=== PATIENT | male | born 1945 | race Caucasian/White ===

== ENCOUNTER 2017-01-27 19:20 | Inpatient (IN) | payer MEDICARE, BC ==
[2017-01-27 19:34] LABS: Glucose,Whole Blood 123 mg/dL (75-99)
[2017-01-27] MEDS ORDERED: SODIUM CHLORIDE 0.9% 1,000 ML IV SCH (19:45)
[2017-01-27 20:15] LABS: Basophils % (A) 0 %; CH 32.8; CHCM 37.6; Eosinophils # (A) 0.1 k/uL (0-0.7); Eosinophils % (A) 1 %; HCT 38.2 % (39.0-53.0); HDW 2.43; HGB 13.5 gm/dL (13.0-17.5); Luc # (Auto) 0.11; Luc % (Auto) 1; Lymphocytes # (A) 0.6 k/uL (1.0-4.8); Lymphocytes % (A) 7 %; MCH 30.9 pg (25.0-35.0); MCHC 35.3 g/dL (31.0-37.0); MCV 87.5 fL (80.0-100.0); Mean Platelet Volume 7.1; Monocytes # (A) 0.8 k/uL (0-1.0); Monocytes % (A) 9 %; Neutrophils % (A) 81 %; RBC 4.37 m/uL (4.30-5.90); RDW 12.5 % (11.5-15.5); WBC 8.6 k/uL (3.8-10.6); WBC (Perox) 8.64
[2017-01-27 20:25] LABS: ALT 175 U/L (21-72); AST 134 U/L (17-59); Acetaminophen <10.0 ug/mL; Alcohol <10 mg/dL; Alkaline Phosphatase 137 U/L (38-126); Anion Gap 13 mmol/L; Blood Urea Nitrogen 18 mg/dL (9-20); Calcium 8.9 mg/dL (8.4-10.2); Carbon Dioxide 29 mmol/L (22-30); Glucose 118 mg/dL (74-99); Magnesium 1.5 mg/dL (1.6-2.3); Non-African American GFR(MDRD) >60 (>60 ml/min/1.73 sqM); Total Bilirubin 1.5 mg/dL (0.2-1.3); Total Protein 6.5 g/dL (6.3-8.2)
[2017-01-27 20:26] LABS: INR 1.1 (<1.2); Partial Thromboplastin Time 22.5 sec (22.0-30.0); Prothrombin Time 11.3 sec (9.0-12.0)
--- NOTE | 2017-01-27 20:29 | CT ---
EXAMINATION TYPE: CT brain wo con DATE OF EXAM: 01/27/2017 COMPARISON: NONE HISTORY: Patient poor historian. Mental status changes. CT DLP: 788.8 mGycm Automated exposure control for dose reduction was used. FINDINGS: Ventricles have fairly normal size. There is no mass effect nor midline shift. There is no sign of in tracranial hemorrhage. The calvarium is intact. IMPRESSION: NEGATIVE CT SCAN OF THE BRAIN.
[2017-01-27 20:34] LABS: Chloride 69 mmol/L (98-107); Potassium 2.9 mmol/L (3.5-5.1); Sodium 111 mmol/L (137-145)
[2017-01-27] MEDS ORDERED: SODIUM CHLORIDE 0.9% 1,000 ML IV ONE (20:41)
--- NOTE | 2017-01-27 20:44 | XR ---
EXAMINATION TYPE: XR chest 1V DATE OF EXAM: 01/27/2017 COMPARISON: NONE HISTORY: Weakness TECHNIQUE: Single frontal view of the chest is obtained. FINDINGS: There is pulmonary hyperinflation. There is some bullous emphysema in the upper lobes and more on the right side. Trachea is midline. Heart size is normal. There is no heart failure. There is no pleural effusion. There are chest leads. IMPRESSION: Emphysema. No acute lung disease.
[2017-01-27 20:51] LABS: Creatine Kinase MB 2.1 ng/mL (0.0-2.4); Troponin I <0.012 ng/mL (0.000-0.034)
[2017-01-27] MEDS ORDERED: POTASSIUM CHLORIDE 20 MEQ in WATER FOR INJECTION 1 100ML.BAG IVPB STA (20:58)
[2017-01-27] MEDS ORDERED: POTASSIUM CHLORIDE ER 20 MEQ TAB.ER PO STA (20:58)
[2017-01-27] MEDS ORDERED: LIDOCAINE URO-JET JELLY 2% 5 ML KIT URETHRAL ONE (21:06)
--- NOTE | 2017-01-27 21:23 | ED ---
Weakness HPI - General Chief complaint: Weakness Stated complaint: Confusion/Weakness Time Seen by Provider: 01/27/17 19:33 Source: patient, family Mode of arrival: ambulatory Limitations: no limitations - History of Present Illness Initial comments: This is a 71-year-old male with a history of hypertension who presents emergency department for generalized weakness worsening over the last couple of days. The family states that he is never been like this. He is very somnolent and very out of it. They state that today he seemed to get acutely worse and decided to bring him in. No fevers or chills. The patient does not complain of any pain anywhere. He does state he has had decreased urine output. He was placed on a diuretic last week however has still not been urinating much. He does have a history of some type of prostate issue and states that he's been having difficulty with urination. He denies any chest pain or palpitations. No shortness of breath. No vomiting. No diarrhea. No other - Related Data Home Medications Medication Instructions Recorded Confirmed ALPRAZolam [Xanax] 0.25 mg PO DAILY 01/27/17 01/27/17 ALPRAZolam [Xanax] 0.25 mg PO HS PRN 01/27/17 01/27/17 Aspirin EC [Ecotrin Low Dose] 162 mg PO HS 01/27/17 01/27/17 Atenolol [Tenormin] 50 mg PO DAILY 01/27/17 01/27/17 Atorvastatin [Lipitor] 20 mg PO HS 01/27/17 01/27/17 Cholecalciferol [Vitamin D3] 1,000 unit PO DAILY 01/27/17 01/27/17 FLUoxetine HCL [PROzac] 20 mg PO BID 01/27/17 01/27/17 Lisinopril-Hctz 10-12.5 mg 1 tab PO DAILY 01/27/17 01/27/17 [Zestoretic 10-12.5] Zolpidem [Ambien] 10 mg PO HS PRN 01/27/17 01/27/17 Allergies Allergy/AdvReac Type Severity Reaction Status Date / Time Sulfa (Sulfonamide Allergy Rash/Hives Verified 01/27/17 19:53 Antibiotics) Review of Systems ROS Statement: Those systems with pertinent positive or pertinent negative responses have been documented in the HPI. ROS Other: All systems not noted in ROS Statement are negative. Past Medical History Past Medical History: Diabetes Mellitus, Hypertension, Myocardial Infarction ([place] ) History of Any Multi-Drug Resistant Organisms: None Reported Past Surgical History: Heart Catheterization With Stent, Orthopedic Surgery Past Psychological History: No Psychological Hx Reported Smoking Status: Former smoker Past Alcohol Use History: None Reported Past Drug Use History: None Reported General Exam - General Exam Comments Initial Comments: Constitutional: The patient is awake but very somnolent and slow to answer questions Appears comfortable Head: Normocephalic atraumatic Eyes: no conjunctival injection No scleral icterus EOMI, pupils are 4 mm and reactive bilaterally Neck: No JVD Supple, no meningismus Heart: Regular rate rhythm normal S1-S2 no murmurs Lungs: Clear to auscultation bilaterally No wheezing No rales Abdomen: Soft nondistended nontender Extremities: Non edematous DP pulses intact Radial pulses intact Neuro: He is awake however somnolent. He is oriented 3. No focal neurologic deficits. 5 out of 5 strength in upper and lower extremities bilaterally. Cranial nerves II through XII are grossly intact. No focal neurologic deficits Psych: Appropriate mood and affect Limitations: no limitations Course Vital Signs 01/27/17 01/27/17 01/27/17 19:24 21:09 21:42 Temperature 97 F L Pulse Rate 65 70 67 Respiratory 18 16 18 Rate Blood Pressure 198/84 180/84 173/81 O2 Sat by Pulse 99 100 100 Oximetry 01/27/17 22:07 Temperature Pulse Rate 68 Respiratory 18 Rate Blood Pressure 182/85 O2 Sat by Pulse 100 Oximetry EKG Findings - EKG Comments: EKG Findings:: EKG showing normal sinus rhythm with a rate of 60. No abnormal ST segment changes or T-wave inversions. QTC is 620 and prolonged. Other intervals appear normal. There is no ectopy. Medical Decision Making - Medical Decision Making This is a 71-year-old male presents emergency department for weakness. He is found to be hyponatremic with a sodium of 111. Likely related to his head or thiazide use area and urine studies were sent. I spoke with Dr. Gusman with nephrology who recommended 3% saline and admission to ICU. Dr. Huitron and Dr. López were updated. - Lab Data Result diagrams: 01/27/17 20:00 01/27/17 20:00 Lab Results 01/27/17 01/27/17 01/27/17 Range/Units 19:31 20:00 20:00 WBC (3.8-10.6) k/uL RBC (4.30-5.90) m/uL Hgb (13.0-17.5) gm/dL Hct (39.0-53.0) % MCV (80.0-100.0) fL MCH (25.0-35.0) pg MCHC (31.0-37.0) g/dL RDW (11.5-15.5) % Plt Count (150-450) k/uL Neutrophils % % Lymphocytes % % Monocytes % % Eosinophils % % Basophils % % Neutrophils # (1.3-7.7) k/uL Lymphocytes # (1.0-4.8) k/uL Monocytes # (0-1.0) k/uL Eosinophils # (0-0.7) k/uL Basophils # (0-0.2) k/uL PT 11.3 (9.0-12.0) sec INR 1.1 (<1.2) APTT 22.5 (22.0-30.0) sec Sodium (137-145) mmol/L Potassium (3.5-5.1) mmol/L Chloride (98-107) mmol/L Carbon Dioxide (22-30) mmol/L Anion Gap mmol/L BUN (9-20) mg/dL Creatinine (0.66-1.25) mg/dL Est GFR (MDRD) Af Amer (>60 ml/min/1.73 sqM) Est GFR (MDRD) Non-Af (>60 ml/min/1.73 sqM) Glucose (74-99) mg/dL POC Glucose (mg/dL) 123 H (75-99) mg/dL POC Glu [employer] ID Vasyl Hartley Plasma Lactic Acid Gennaro (0.7-2.0) mmol/L Calcium (8.4-10.2) mg/dL Magnesium (1.6-2.3) mg/dL Total Bilirubin (0.2-1.3) mg/dL AST (17-59) U/L ALT (21-72) U/L Alkaline Phosphatase (38-126) U/L CK-MB (CK-2) 2.1 (0.0-2.4) ng/mL Troponin I <0.012 (0.000-0.034) ng/mL Total Protein (6.3-8.2) g/dL Albumin (3.5-5.0) g/dL Urine Color Urine Appearance (Clear) Urine pH (5.0-8.0) Ur Specific [place] (1.001-1.035) Urine Protein (Negative) Urine Glucose (UA) (Negative) Urine Ketones (Negative) Urine Blood (Negative) Urine Nitrite (Negative) Urine Bilirubin (Negative) Urine Urobilinogen (<2.0) mg/dL Ur Leukocyte Esterase (Negative) Urine RBC (0-5) /hpf Urine WBC (0-5) /hpf Urine Opiates Screen (NotDetected) Ur Oxycodone Screen (NotDetected) Urine Methadone Screen (NotDetected) Ur Propoxyphene Screen (NotDetected) Acetaminophen ug/mL Ur Barbiturates Screen (NotDetected) U Tricyclic Antidepress (NotDetected) Ur Phencyclidine Scrn (NotDetected) Ur Amphetamines Screen (NotDetected) U Methamphetamines Scrn (NotDetected) U Benzodiazepines Scrn (NotDetected) Urine Cocaine Screen (NotDetected) U Marijuana (THC) Screen (NotDetected) Serum Alcohol mg/dL 01/27/17 01/27/17 01/27/17 Range/Units 20:00 20:00 20:00 WBC 8.6 (3.8-10.6) k/uL RBC 4.37 (4.30-5.90) m/uL Hgb 13.5 (13.0-17.5) gm/dL Hct 38.2 L (39.0-53.0) % MCV 87.5 (80.0-100.0) fL MCH 30.9 (25.0-35.0) pg MCHC 35.3 (31.0-37.0) g/dL RDW 12.5 (11.5-15.5) % Plt Count 205 (150-450) k/uL Neutrophils % 81 % Lymphocytes % 7 % Monocytes % 9 % Eosinophils % 1 % Basophils % 0 % Neutrophils # 7.0 (1.3-7.7) k/uL Lymphocytes # 0.6 L (1.0-4.8) k/uL Monocytes # 0.8 (0-1.0) k/uL Eosinophils # 0.1 (0-0.7) k/uL Basophils # 0.0 (0-0.2) k/uL PT (9.0-12.0) sec INR (<1.2) APTT (22.0-30.0) sec Sodium 111 L* (137-145) mmol/L Potassium 2.9 L* (3.5-5.1) mmol/L Chloride 69 L* (98-107) mmol/L Carbon Dioxide 29 (22-30) mmol/L Anion Gap 13 mmol/L BUN 18 (9-20) mg/dL Creatinine 0.70 (0.66-1.25) mg/dL Est GFR (MDRD) Af Amer >60 (>60 ml/min/1.73 sqM) Est GFR (MDRD) Non-Af >60 (>60 ml/min/1.73 sqM) Glucose 118 H (74-99) mg/dL POC Glucose (mg/dL) (75-99) mg/dL POC Glu [employer] ID Plasma Lactic Acid Gennaro 2.5 H* (0.7-2.0) mmol/L Calcium 8.9 (8.4-10.2) mg/dL Magnesium 1.5 L (1.6-2.3) mg/dL Total Bilirubin 1.5 H (0.2-1.3) mg/dL AST 134 H (17-59) U/L ALT 175 H (21-72) U/L Alkaline Phosphatase 137 H (38-126) U/L CK-MB (CK-2) (0.0-2.4) ng/mL Troponin I (0.000-0.034) ng/mL Total Protein 6.5 (6.3-8.2) g/dL Albumin 3.9 (3.5-5.0) g/dL Urine Color Urine Appearance (Clear) Urine pH (5.0-8.0) Ur Specific [place] (1.001-1.035) Urine Protein (Negative) Urine Glucose (UA) (Negative) Urine Ketones (Negative) Urine Blood (Negative) Urine Nitrite (Negative) Urine Bilirubin (Negative) Urine Urobilinogen (<2.0) mg/dL Ur Leukocyte Esterase (Negative) Urine RBC (0-5) /hpf Urine WBC (0-5) /hpf Urine Opiates Screen (NotDetected) Ur Oxycodone Screen (NotDetected) Urine Methadone Screen (NotDetected) Ur Propoxyphene Screen (NotDetected) Acetaminophen <10.0 ug/mL Ur Barbiturates Screen (NotDetected) U Tricyclic Antidepress (NotDetected) Ur Phencyclidine Scrn (NotDetected) Ur Amphetamines Screen (NotDetected) U Methamphetamines Scrn (NotDetected) U Benzodiazepines Scrn (NotDetected) Urine Cocaine Screen (NotDetected) U Marijuana (THC) Screen (NotDetected) Serum Alcohol <10 mg/dL 01/27/17 01/27/17 Range/Units 21:15 21:15 WBC (3.8-10.6) k/uL RBC (4.30-5.90) m/uL Hgb (13.0-17.5) gm/dL Hct (39.0-53.0) % MCV (80.0-100.0) fL MCH (25.0-35.0) pg MCHC (31.0-37.0) g/dL RDW (11.5-15.5) % Plt Count (150-450) k/uL Neutrophils % % Lymphocytes % % Monocytes % % Eosinophils % % Basophils % % Neutrophils # (1.3-7.7) k/uL Lymphocytes # (1.0-4.8) k/uL Monocytes # (0-1.0) k/uL Eosinophils # (0-0.7) k/uL Basophils # (0-0.2) k/uL PT (9.0-12.0) sec INR (<1.2) APTT (22.0-30.0) sec Sodium (137-145) mmol/L Potassium (3.5-5.1) mmol/L Chloride (98-107) mmol/L Carbon Dioxide (22-30) mmol/L Anion Gap mmol/L BUN (9-20) mg/dL Creatinine (0.66-1.25) mg/dL Est GFR (MDRD) Af Amer (>60 ml/min/1.73 sqM) Est GFR (MDRD) Non-Af (>60 ml/min/1.73 sqM) Glucose (74-99) mg/dL POC Glucose (mg/dL) (75-99) mg/dL POC Glu [employer] ID Plasma Lactic Acid Gennaro (0.7-2.0) mmol/L Calcium (8.4-10.2) mg/dL Magnesium (1.6-2.3) mg/dL Total Bilirubin (0.2-1.3) mg/dL AST (17-59) U/L ALT (21-72) U/L Alkaline Phosphatase (38-126) U/L CK-MB (CK-2) (0.0-2.4) ng/mL Troponin I (0.000-0.034) ng/mL Total Protein (6.3-8.2) g/dL Albumin (3.5-5.0) g/dL Urine Color Yellow Urine Appearance Clear (Clear) Urine pH 7.0 (5.0-8.0) Ur Specific [place] 1.010 (1.001-1.035) Urine Protein Negative (Negative) Urine Glucose (UA) Negative (Negative) Urine Ketones 1+ H (Negative) Urine Blood Moderate H (Negative) Urine Nitrite Negative (Negative) Urine Bilirubin Negative (Negative) Urine Urobilinogen 4.0 (<2.0) mg/dL Ur Leukocyte Esterase Negative (Negative) Urine RBC 17 H (0-5) /hpf Urine WBC <1 (0-5) /hpf Urine Opiates Screen Not Detected (NotDetected) Ur Oxycodone Screen Not Detected (NotDetected) Urine Methadone Screen Not Detected (NotDetected) Ur Propoxyphene Screen Not Detected (NotDetected) Acetaminophen ug/mL Ur Barbiturates Screen Not Detected (NotDetected) U Tricyclic Antidepress Not Detected (NotDetected) Ur Phencyclidine Scrn Not Detected (NotDetected) Ur Amphetamines Screen Not Detected (NotDetected) U Methamphetamines Scrn Not Detected (NotDetected) U Benzodiazepines Scrn Detected H (NotDetected) Urine Cocaine Screen Not Detected (NotDetected) U Marijuana (THC) Screen Not Detected (NotDetected) Serum Alcohol mg/dL Disposition Clinical Impression: Hyponatremia Disposition: ADMITTED IP TO THIS HOSP Condition: Critical
[2017-01-27 21:49] LABS: Appearance,Urine Clear (Clear); Bilirubin,Urine Negative (Negative); Glucose,Urine (UA) Negative (Negative); Ketones,Urine 1+ (Negative); Leukocyte Esterase,Urine Negative (Negative); Nitrite,Urine Negative (Negative); Particle Count 710; Protein,Urine Negative (Negative); RBC,Urine 17 /hpf (0-5); UA Billing (MACRO vs. MICRO) MICRO; WBC,Urine <1 /hpf (0-5)
[2017-01-27] MEDS ORDERED: NALOXONE 0.4 MG/ML 1 ML VIAL IV PRN (22:22)
[2017-01-27] MEDS: MAGNESIUM SULFATE-D5W PMX 1 GM in DEXTROSE/WATER 1 100ML.BAG IVPB SCH (22:36)
[2017-01-28] LABS: Glucose,Whole Blood 121 mg/dL (75-99)
[2017-01-28] MEDS: SODIUM CHLORIDE 3%(HYPERTONIC) 500 ML IV SCH (00:04)
[2017-01-28] MEDS: ALPRAZolam 0.25 MG TAB PO PRN (01:26)
[2017-01-28] MEDS: MAGNESIUM SULFATE-D5W PMX 1 GM in DEXTROSE/WATER 1 100ML.BAG IVPB SCH (02:32)
[2017-01-28 03:00] LABS: Anion Gap 11 mmol/L; Blood Urea Nitrogen 13 mg/dL (9-20); Carbon Dioxide 24 mmol/L (22-30); Glucose 104 mg/dL (74-99); Non-African American GFR(MDRD) >60 (>60 ml/min/1.73 sqM)
[2017-01-28 03:03] LABS: Chloride 78 mmol/L (98-107); Sodium 113 mmol/L (137-145)
[2017-01-28] MEDS: POTASSIUM CHLORIDE 10 MEQ, LIDOCAINE 2% INJ 10 MG in SODIUM CHLORIDE 0.9% 100 ML IVPB SCH ×3 (03:59→06:12)
[2017-01-28 05:35] LABS: Basophils % (A) 0 %; CH 31.2; CHCM 35.2; Eosinophils % (A) 0 %; HCT 38.1 % (39.0-53.0); HDW 2.42; HGB 13.2 gm/dL (13.0-17.5); Luc # (Auto) 0.27; Luc % (Auto) 2; Lymphocytes # (A) 0.6 k/uL (1.0-4.8); Lymphocytes % (A) 4 %; MCH 30.8 pg (25.0-35.0); MCHC 34.7 g/dL (31.0-37.0); MCV 88.8 fL (80.0-100.0); Monocytes # (A) 0.9 k/uL (0-1.0); Monocytes % (A) 7 %; Neutrophils # (A) 10.9 k/uL (1.3-7.7); Neutrophils % (A) 86 %; RBC 4.29 m/uL (4.30-5.90); WBC 12.7 k/uL (3.8-10.6)
[2017-01-28 05:54] LABS: Anion Gap 11 mmol/L; Calcium 7.9 mg/dL (8.4-10.2); Carbon Dioxide 23 mmol/L (22-30); Chloride 81 mmol/L (98-107); Glucose 109 mg/dL (74-99); Non-African American GFR(MDRD) >60 (>60 ml/min/1.73 sqM); Total Bilirubin 1.2 mg/dL (0.2-1.3); Total Protein 5.9 g/dL (6.3-8.2)
[2017-01-28 06:00] LABS: Blood Urea Nitrogen 11 mg/dL (9-20); Magnesium 2.1 mg/dL (1.6-2.3); Potassium 3.4 mmol/L (3.5-5.1); Sodium 115 mmol/L (137-145)
[2017-01-28 06:01] LABS: ALT 159 U/L (21-72); AST 120 U/L (17-59); Alkaline Phosphatase 113 U/L (38-126)
--- NOTE | 2017-01-28 08:32 | P.CNPUL ---
History of Present Illness Consult date: 01/28/17 Chief complaint: Generalized weakness and hyponatremia History of present illness: This is a 71-year-old male patient came into the emergency department yesterday because of generalized weakness over the past couple of days. The patient was also somnolent and he was unable to stand up due to his extensive weakness. His condition was progressively getting worse and yesterday felt really bad. No fever. No chills. In the burst department the patient was found to have severe hypochloremic hyponatremia with a sodium level of 111. His chloride level was at 78. His BUN was 13 with a creatinine of 0.6. Glucose was 104. His lactic acid level was at 1.1. His urine osmolality was 407. The serum osmolality was at 407 and a urine sodium was at 45. Patient's urine toxin was positive for benzodiazepines. The patient was recently switched to a antihypertensive medication that includes hydrochlorothiazide. He is not a beer drinker. No history of of malignancy. No history of any other medication change recently. He is on Prozac 20 mg by mouth daily. Chest x-ray showed COPD otherwise clear. CAT scan of the brain was also negative. No history of any hypothyroidism. No diarrhea. No nausea. No vomiting. No hematemesis. Based on this and based on his symptomatically hyponatremia the patient was started on hypertonic 3% saline at the rate of 20 mL an hour and his current sodium level is up 115. He is still very tired. He is requesting to sleep at all times. The patient is known to have multiple other medical problems including coronary artery disease with a previous coronary stent insertion, hypertension, previous myocardial infarction, and COPD. Review of Systems Constitutional: Reports daytime sleepiness, Reports fatigue, Reports poor appetite, Reports weakness Eyes: denies blurred vision, denies bulging eye, denies decreased vision Ears: deny: decreased hearing, ear discharge, earache Ears, nose, mouth and throat: Denies headache, Denies sore throat Cardiovascular: Denies chest pain, Denies shortness of breath Respiratory: Denies cough Gastrointestinal: Denies abdominal pain, Denies diarrhea, Denies nausea, Denies vomiting Musculoskeletal: Denies myalgias Musculoskeletal: absent: ankle pain, ankle stiffness, ankle swelling Integumentary: Denies pruritus, Denies rash Neurological: Reports gait dysfunction, Reports weakness Psychiatric: Reports anxiety, Reports depression Endocrine: Denies fatigue, Denies weight change Past Medical History Past Medical History: Diabetes Mellitus, Hypertension, Myocardial Infarction ([place] ) Additional Past Medical History / Comment(s): Coronary artery disease, previous myocardial infarction, previous coronary stent, osteoarthritis, chronic back pain, hypertension, anxiety/depression. Last Myocardial Infarction Date:: 2003 History of Any Multi-Drug Resistant Organisms: None Reported Past Surgical History: Heart Catheterization With Stent, Orthopedic Surgery Date of Last Stent Placement:: 2003 Past Psychological History: No Psychological Hx Reported Smoking Status: Former smoker Past Alcohol Use History: None Reported Past Drug Use History: None Reported Medications and Allergies Home Medications Medication Instructions Recorded Confirmed Type ALPRAZolam [Xanax] 0.25 mg PO DAILY 01/27/17 01/27/17 History ALPRAZolam [Xanax] 0.25 mg PO HS PRN 01/27/17 01/27/17 History Aspirin EC [Ecotrin Low Dose] 162 mg PO HS 01/27/17 01/27/17 History Atenolol [Tenormin] 50 mg PO DAILY 01/27/17 01/27/17 History Atorvastatin [Lipitor] 20 mg PO HS 01/27/17 01/27/17 History Cholecalciferol [Vitamin D3] 1,000 unit PO DAILY 01/27/17 01/27/17 History FLUoxetine HCL [PROzac] 20 mg PO BID 01/27/17 01/27/17 History Lisinopril-Hctz 10-12.5 mg 1 tab PO DAILY 01/27/17 01/27/17 History [Zestoretic 10-12.5] Zolpidem [Ambien] 10 mg PO HS PRN 01/27/17 01/27/17 History Allergies Allergy/AdvReac Type Severity Reaction Status Date / Time Sulfa (Sulfonamide Allergy Rash/Hives Verified 01/27/17 19:53 Antibiotics) Physical Exam Vitals: Vital Signs Temp Pulse Pulse Resp BP BP Pulse Ox 01/28/17 06:00 69 17 149/73 98 01/28/17 05:30 73 18 120/70 95 01/28/17 05:00 69 17 161/72 95 01/28/17 04:30 70 17 165/75 97 01/28/17 04:00 98 F 69 15 170/86 96 01/28/17 03:36 71 15 01/28/17 03:30 98.8 F 71 16 160/72 95 01/28/17 03:00 72 15 152/73 95 01/28/17 02:30 70 16 159/78 96 01/28/17 02:00 69 15 162/81 96 01/28/17 01:30 69 17 157/79 96 01/28/17 01:00 67 18 147/78 98 01/28/17 00:30 98.5 F 68 18 159/75 98 01/28/17 00:00 72 19 178/83 100 01/27/17 23:58 73 24 98 01/27/17 23:19 96.5 F L 69 17 157/79 99 01/27/17 22:45 98.1 F 68 12 147/78 98 01/27/17 22:07 68 18 182/85 100 01/27/17 21:42 67 18 173/81 100 01/27/17 21:09 70 16 180/84 100 01/27/17 19:24 97 F L 65 18 198/84 99 Intake and Output 01/27/17 01/28/17 01/28/17 22:59 06:59 14:59 Intake Total 1120 Output Total 800 950 Balance -800 170 Intake: IV 120 Sodium Chloride 3%( 120 Hypertonic) 500 ml @ 20 mls/hr IV .Q24H [facility] Rx#: [id number] Amount of Fluid Infused ( 1000 ml) Output: Urine 800 950 Other: Voiding Method Toilet Indwelling Catheter # Voids 1 1 Weight 60.1 kg The patient appeared well nourished and normally developed. Vital signs as documented. Head exam is unremarkable. No scleral icterus or corneal arcus noted. Neck is without jugular venous distension, thyromegaly, or carotid bruits. Carotid upstrokes are brisk bilaterally. Lungs are clear to auscultation and percussion. Cardiac exam reveals the PMI to be normally sized and situated. Rhythm is regular. First and second heart sounds normal. No murmurs, rubs or gallops. Abdominal exam reveals normal bowel sounds, no masses , no organomegaly and no aortic enlargement. Extremities are nonedematous and both femoral and pedal pulses are normal. Neurologically the patient's exam is nonfocal however he is weak and he is unable to ambulate yet. Motor function is diminished in all 4 extremities symmetrically. No cranial nerve deficits. Skin is negative for any open wounds or sores or ulceration or cellulitis. Results - Laboratory Findings CBC and BMP: 01/28/17 05:19 01/28/17 05:19 PT/INR, D-dimer PT 11.3 sec (9.0-12.0) 01/27/17 20:00 INR 1.1 (<1.2) 01/27/17 20:00 Abnormal lab findings: Abnormal Labs 01/27/17 01/27/17 01/27/17 19:31 20:00 20:00 WBC RBC Hct 38.2 L Neutrophils # Lymphocytes # 0.6 L Sodium 111 L* Potassium 2.9 L* Chloride 69 L* Creatinine Glucose 118 H POC Glucose (mg/dL) 123 H Osmolality Plasma Lactic Acid Gennaro Calcium Magnesium 1.5 L Total Bilirubin 1.5 H AST 134 H ALT 175 H Alkaline Phosphatase 137 H Total Protein Albumin Urine Ketones Urine Blood Urine RBC U Benzodiazepines Scrn 01/27/17 01/27/17 01/27/17 20:00 20:00 21:15 WBC RBC Hct Neutrophils # Lymphocytes # Sodium Potassium Chloride Creatinine Glucose POC Glucose (mg/dL) Osmolality 239 L* Plasma Lactic Acid Gennaro 2.5 H* Calcium Magnesium Total Bilirubin AST ALT Alkaline Phosphatase Total Protein Albumin Urine Ketones Urine Blood Urine RBC U Benzodiazepines Scrn Detected H 01/27/17 01/27/17 01/28/17 21:15 23:57 02:06 WBC RBC Hct Neutrophils # Lymphocytes # Sodium 112 L* Potassium Chloride Creatinine Glucose POC Glucose (mg/dL) 121 H Osmolality Plasma Lactic Acid Gennaro Calcium Magnesium Total Bilirubin AST ALT Alkaline Phosphatase Total Protein Albumin Urine Ketones 1+ H Urine Blood Moderate H Urine RBC 17 H U Benzodiazepines Scrn 01/28/17 01/28/17 01/28/17 02:06 05:19 05:19 WBC 12.7 H RBC 4.29 L Hct 38.1 L Neutrophils # 10.9 H Lymphocytes # 0.6 L Sodium 113 L* 115 L* Potassium 3.0 L* 3.4 L Chloride 78 L* 81 L Creatinine 0.60 L 0.50 L Glucose 104 H 109 H POC Glucose (mg/dL) Osmolality Plasma Lactic Acid Gennaro Calcium 8.0 L 7.9 L Magnesium Total Bilirubin AST 120 H ALT 159 H Alkaline Phosphatase Total Protein 5.9 L Albumin 3.4 L Urine Ketones Urine Blood Urine RBC U Benzodiazepines Scrn - Diagnostic Findings Chest x-ray: image reviewed Assessment and Plan Plan: Assessment 1 symptomatic hyponatremia, possibly drug induced secondary to intake of hydrochlorothiazide 2 profound generalized weakness secondary to above, improving slowly 3 coronary artery disease with previous coronary intervention and stenting 4 hypertension 5 COPD Plan Watch for any aggressive correction of the sodium levels. Would like his sodium level II, between 8-12 mEq over the next 24 hours. He is currently on 3 % hypertonic saline at the rate of 20 mL an hour. We'll repeat his electrolytes every 4 hours and we'll stop the hypertonic solitary solution for that purpose and adjust the rate based on the follow-up sodium levels. Meanwhile, we will try to resect the fluid intake. Will stop the hydrochlorothiazide. We'll check a baseline thyroid function level. Nephrology consultation. Restart ethanol for blood pressure control. Lisinopril for blood pressure control. Heparin subcu for DVT prophylaxis. We' ll continue to follow.
[2017-01-28] MEDS: LISINOPRIL 10 MG TAB PO SCH (09:04)
[2017-01-28] MEDS: PANTOPRAZOLE 40 MG/10 ML VIAL IVP SCH (09:06)
[2017-01-28] MEDS: HEPARIN SODIUM,PORCINE 5,000 UNIT/ML 1 ML VIAL SQ SCH ×2 (09:06→20:52)
[2017-01-28] MEDS: CHOLECALCIFEROL 1,000 UNIT TAB PO SCH (09:06)
[2017-01-28] MEDS: ATENOLOL 50 MG TAB PO SCH (09:10)
[2017-01-28] MEDS ORDERED: POTASSIUM CHLORIDE ER 10 MEQ TAB.ER.PRT PO STA (09:55)
[2017-01-28 09:56] LABS: Anion Gap 10 mmol/L; Blood Urea Nitrogen 10 mg/dL (9-20); Calcium 7.9 mg/dL (8.4-10.2); Carbon Dioxide 27 mmol/L (22-30); Chloride 82 mmol/L (98-107); Glucose 103 mg/dL (74-99); Non-African American GFR(MDRD) >60 (>60 ml/min/1.73 sqM); Potassium 3.3 mmol/L (3.5-5.1)
[2017-01-28 09:58] LABS: Sodium 119 mmol/L (137-145)
[2017-01-28] MEDS: FLUoxetine HCL 20 MG CAP PO SCH ×2 (10:14→20:19)
--- NOTE | 2017-01-28 10:52 | P.NPCON ---
History of Present Illness - Reason for Consult hyponatremia - History of Present Illness Reason for consultation: Hyponatremia History of present illness: Patient is a 71-year-old male seen in renal consultation for hyponatremia. Patient was brought to the hospital due to generalized weakness and some confusion. Apparently this was new and the family was concerned and brought him to the hospital. He was noted to have a sodium level of 111 and a potassium level of 2.9. He was started on 3% saline and sodium level is up to 119 this morning. All fluids have been discontinued. He did pass a swallow eval and has started oral intake. From the records it appears that the patient was started on a thiazide diuretic recently. He denies drinking excessive amounts of water. His oral intake has been fair. There was also some concern for urinary retention. A Romero catheter was placed in the emergency room about 800 mL of urine was obtained. He is currently nonoliguric. GFR is at baseline. No vomiting or diarrhea. Vital signs are stable. General: The patient appeared well nourished and normally developed. HEENT: Head exam is unremarkable. Neck is without jugular venous distension. LUNGS: Lungs are clear to auscultation and percussion. Breath sounds decreased. HEART: Rate and Rhythm are regular. First and second heart sounds normal. No murmurs, rubs or gallops. ABDOMEN: Abdominal exam reveals normal bowel sounds. Non-tender and non- distended. No evidence of peritonitis. EXTREMITITES: No clubbing, cyanosis, or edema. Past Medical History Past Medical History: Diabetes Mellitus, Hypertension, Myocardial Infarction ([place] ) Additional Past Medical History / Comment(s): Coronary artery disease, previous myocardial infarction, previous coronary stent, osteoarthritis, chronic back pain, hypertension, anxiety/depression, PAD. Last Myocardial Infarction Date:: 2003 History of Any Multi-Drug Resistant Organisms: None Reported Past Surgical History: Heart Catheterization With Stent Additional Past Surgical History / Comment(s): Lumbar spinal fusion Date of Last Stent Placement:: 2003 Past Psychological History: No Psychological Hx Reported Smoking Status: Former smoker Past Alcohol Use History: None Reported Additional Past Alcohol Use History / Comment(s): Patient was a smoker 2 packs per day since he was in his teens and quit 25 years ago. He does have history of heavy alcohol abuse but quit many years ago. Past Drug Use History: None Reported - Past Family History Father Additional Family Medical History / Comment(s): Father in his 80s with history of diabetes. Mother Additional Family Medical History / Comment(s): Patient's mother from cancer unknown to him. He did not have contact with her. Brother(s) Additional Family Medical History / Comment(s): Patient has one brother that from drowning. Patient had 1 sister that was adopted out and he does not know her history. Patient has 2 daughters no major medical problems. Medications and Allergies Home Medications Medication Instructions Recorded Confirmed Type ALPRAZolam [Xanax] 0.25 mg PO DAILY 01/27/17 01/27/17 History ALPRAZolam [Xanax] 0.25 mg PO HS PRN 01/27/17 01/27/17 History Aspirin EC [Ecotrin Low Dose] 162 mg PO HS 01/27/17 01/27/17 History Atenolol [Tenormin] 50 mg PO DAILY 01/27/17 01/27/17 History Atorvastatin [Lipitor] 20 mg PO HS 01/27/17 01/27/17 History Cholecalciferol [Vitamin D3] 1,000 unit PO DAILY 01/27/17 01/27/17 History FLUoxetine HCL [PROzac] 20 mg PO BID 01/27/17 01/27/17 History Lisinopril-Hctz 10-12.5 mg 1 tab PO DAILY 01/27/17 01/27/17 History [Zestoretic 10-12.5] Zolpidem [Ambien] 10 mg PO HS PRN 01/27/17 01/27/17 History Allergies Allergy/AdvReac Type Severity Reaction Status Date / Time Sulfa (Sulfonamide Allergy Rash/Hives Verified 01/27/17 19:53 Antibiotics) Physical Exam Vitals: Vital Signs Temp Pulse Pulse Resp BP BP Pulse Ox 01/28/17 10:00 60 18 161/77 96 01/28/17 09:30 67 24 149/74 98 01/28/17 09:00 71 19 162/79 99 01/28/17 08:30 73 20 156/77 96 01/28/17 08:00 98.3 F 73 18 162/81 96 01/28/17 07:30 76 14 153/82 96 01/28/17 06:00 69 17 149/73 98 01/28/17 05:30 73 18 120/70 95 01/28/17 05:00 69 17 161/72 95 01/28/17 04:30 70 17 165/75 97 01/28/17 04:00 98 F 69 15 170/86 96 01/28/17 03:36 71 15 01/28/17 03:30 98.8 F 71 16 160/72 95 01/28/17 03:00 72 15 152/73 95 01/28/17 02:30 70 16 159/78 96 01/28/17 02:00 69 15 162/81 96 01/28/17 01:30 69 17 157/79 96 01/28/17 01:00 67 18 147/78 98 01/28/17 00:30 98.5 F 68 18 159/75 98 01/28/17 00:00 72 19 178/83 100 01/27/17 23:58 73 24 98 01/27/17 23:19 96.5 F L 69 17 157/79 99 01/27/17 22:45 98.1 F 68 12 147/78 98 01/27/17 22:07 68 18 182/85 100 01/27/17 21:42 67 18 173/81 100 01/27/17 21:09 70 16 180/84 100 01/27/17 19:24 97 F L 65 18 198/84 99 Intake and Output 01/27/17 01/28/17 01/28/17 22:59 06:59 14:59 Intake Total 1120 100 Output Total 800 950 490 Balance -800 170 -390 Intake: IV 120 40 Sodium Chloride 3%( 120 40 Hypertonic) 500 ml @ 20 mls/hr IV .Q24H [facility] Rx#: [id number] Amount of Fluid Infused ( 1000 ml) Oral 60 Output: Urine 800 950 490 Other: Voiding Method Toilet Indwelling Catheter # Voids 1 1 Weight 60.1 kg Results - Lab Results Most recent lab results Calcium 7.9 mg/dL (8.4-10.2) L 01/28/17 09:27 Magnesium 2.1 mg/dL (1.6-2.3) 01/28/17 05:19 01/28/17 05:19 01/28/17 09:27 Assessment and Plan Plan: Assessment: #1. Hyponatremia. Currently euvolemic in nature. Etiology is use of thiazide diuretic as well as urinary retention. Sodium level was 111 on admission and is up to 119 this morning. He remains off all IV fluids at this time. #2. Altered mental status secondary to hyponatremia. Patient's currently alert and oriented 3. #3. Hypokalemia secondary to diuretics. Being replaced. Rule out magnesium deficiency. #4. Benign hypertension. Current blood pressure in the systolic 120s. Plan: He is currently off all IV fluids. Encouraged oral intake. Check magnesium level. Maintain 1.5 L fluid restriction. Recheck sodium level at 1 PM today. Avoid rapid correction. If sodium level continues to rise, I will start him on a hypotonic fluids and consider DDAVP to prevent further rise. Thank you for the consultation. I will continue to follow the patient with you during his hospital stay.
--- NOTE | 2017-01-28 11:16 | P.HPIM ---
History of Present Illness H&P Date: 01/28/17 Chief Complaint: profound weakness/hyponatremia. This is a 71-year-old male patient of Dr. Street with past medical history of coronary artery disease, myocardial infarction status post stent, diabetes mellitus type 2, hypertension, depression, anxiety, patient was brought into the emergency department at [facility] yesterday with his due to generalized weakness and inability to ambulate, patient was having significant mental status changes with significant encephalopathy patient was found to have a sodium 411 he was recently started on lisinopril hydrochlorothiazide for his primary care physician, and the patient was found to have an elevated serum osmolality and urine aspirin D with elevated urine sodium initially he was hypovolemic and now he is euvolemic hyponatremia due to the use of thiazide diuretics, patient also was found to have a significant hypokalemia due to the use of the diuretics as well who was admitted to the intensive care unit he was seen in consultation by nephrology as well as by critical care medicine Dr. Xie my patient also was started on hypertonic 3 % solution and he is currently off all IV fluids and his sodium level is 119, repeat a sodium level if the sodium continues to rise the patient would be started on half normal saline as well as possible DDAVP. Review of Systems Constitutional: Reports malaise, Reports weakness, Reports weight loss, Denies anorexia, Denies chronic headaches, Denies chronic pain Eyes: denies blurred vision, denies bulging eye, denies decreased vision, denies diplopia Ears: deny: decreased hearing Ears, nose, mouth and throat: Denies dental pain, Denies dysphagia, Denies neck lump, Denies swelling in throat, Denies sore throat Cardiovascular: Reports high blood pressure, Denies chest pain, Denies irregular heart beat, Denies phlebitis, Denies rapid heart beat, Denies shortness of breath, Denies syncope Respiratory: Denies congestion, Denies cough, Denies cough with sputum, Denies home oxygen, Denies sleep apnea, Denies snoring, Denies wheezing Gastrointestinal: Reports nausea, Denies abdominal pain, Denies belching, Denies bloating, Denies heartburn, Denies hematochezia, Denies indigestion, Denies melena, Denies vomiting Genitourinary: Reports nocturia, Denies dysuria Musculoskeletal: Denies myalgias Musculoskeletal: absent: ankle pain, ankle stiffness, ankle swelling, elbow pain , elbow stiffness, elbow swelling, foot pain, foot stiffness, foot swelling, hand pain, hand stiffness, hand swelling, hip pain, hip stiffness, hip swelling , knee pain, knee stiffness, knee swelling, shoulder pain, shoulder stiffness, shoulder swelling, wrist pain, wrist stiffness, wrist swelling Integumentary: Denies pruritus, Denies rash Neurological: Reports confusion, Reports gait dysfunction, Reports weakness, Denies numbness Psychiatric: Reports anxiety, Reports depression, Reports sleep disturbances, Denies sadness/tearfulness, Denies suicidal ideation Endocrine: Denies fatigue, Denies weight change Past Medical History Past Medical History: COPD, Diabetes Mellitus, Hypertension, Myocardial Infarction ([place]), Musculoskeletal Disorder, Osteoarthritis ([place]) Additional Past Medical History / Comment(s): Coronary artery disease, previous myocardial infarction, previous coronary stent, osteoarthritis, chronic back pain, hypertension, anxiety/depression, PAD. Last Myocardial Infarction Date:: 2003 History of Any Multi-Drug Resistant Organisms: None Reported Past Surgical History: Heart Catheterization With Stent Additional Past Surgical History / Comment(s): Lumbar spinal fusion Date of Last Stent Placement:: 2003 Past Psychological History: No Psychological Hx Reported Smoking Status: Former smoker Past Alcohol Use History: None Reported Additional Past Alcohol Use History / Comment(s): Patient was a smoker 2 packs per day since he was in his teens and quit 25 years ago. He does have history of heavy alcohol abuse but quit many years ago. Past Drug Use History: None Reported - Past Family History Father Additional Family Medical History / Comment(s): Father in his 80s with history of diabetes. Mother Additional Family Medical History / Comment(s): Patient's mother from cancer unknown to him. He did not have contact with her. Brother(s) Additional Family Medical History / Comment(s): Patient has one brother that from drowning. Patient had 1 sister that was adopted out and he does not know her history. Patient has 2 daughters no major medical problems. Medications and Allergies Home Medications Medication Instructions Recorded Confirmed Type ALPRAZolam [Xanax] 0.25 mg PO DAILY 01/27/17 01/27/17 History ALPRAZolam [Xanax] 0.25 mg PO HS PRN 01/27/17 01/27/17 History Aspirin EC [Ecotrin Low Dose] 162 mg PO HS 01/27/17 01/27/17 History Atenolol [Tenormin] 50 mg PO DAILY 01/27/17 01/27/17 History Atorvastatin [Lipitor] 20 mg PO HS 01/27/17 01/27/17 History Cholecalciferol [Vitamin D3] 1,000 unit PO DAILY 01/27/17 01/27/17 History FLUoxetine HCL [PROzac] 20 mg PO BID 01/27/17 01/27/17 History Lisinopril-Hctz 10-12.5 mg 1 tab PO DAILY 01/27/17 01/27/17 History [Zestoretic 10-12.5] Zolpidem [Ambien] 10 mg PO HS PRN 01/27/17 01/27/17 History Allergies Allergy/AdvReac Type Severity Reaction Status Date / Time Sulfa (Sulfonamide Allergy Rash/Hives Verified 01/27/17 19:53 Antibiotics) Physical Exam Vitals: Vital Signs Temp Pulse Pulse Resp BP BP Pulse Ox 01/28/17 09:00 71 19 162/79 99 01/28/17 08:30 73 20 156/77 96 01/28/17 08:00 98.3 F 73 18 162/81 96 01/28/17 07:30 76 14 153/82 96 01/28/17 06:00 69 17 149/73 98 01/28/17 05:30 73 18 120/70 95 01/28/17 05:00 69 17 161/72 95 01/28/17 04:30 70 17 165/75 97 01/28/17 04:00 98 F 69 15 170/86 96 01/28/17 03:36 71 15 01/28/17 03:30 98.8 F 71 16 160/72 95 01/28/17 03:00 72 15 152/73 95 01/28/17 02:30 70 16 159/78 96 01/28/17 02:00 69 15 162/81 96 01/28/17 01:30 69 17 157/79 96 01/28/17 01:00 67 18 147/78 98 01/28/17 00:30 98.5 F 68 18 159/75 98 01/28/17 00:00 72 19 178/83 100 01/27/17 23:58 73 24 98 01/27/17 23:19 96.5 F L 69 17 157/79 99 01/27/17 22:45 98.1 F 68 12 147/78 98 01/27/17 22:07 68 18 182/85 100 01/27/17 21:42 67 18 173/81 100 01/27/17 21:09 70 16 180/84 100 01/27/17 19:24 97 F L 65 18 198/84 99 Intake and Output 01/27/17 01/28/17 01/28/17 22:59 06:59 14:59 Intake Total 1120 100 Output Total 800 950 215 Balance -800 170 -115 Intake: IV 120 40 Sodium Chloride 3%( 120 40 Hypertonic) 500 ml @ 20 mls/hr IV .Q24H [facility] Rx#: [id number] Amount of Fluid Infused ( 1000 ml) Oral 60 Output: Urine 800 950 215 Other: Voiding Method Toilet Indwelling Catheter # Voids 1 1 Weight 60.1 kg - Constitutional General appearance: no acute distress, thin - EENT Eyes: anicteric sclerae, EOMI, PERRLA, no ptosis, no scleral icterus, normal appearance ENT: hearing grossly normal, NA/AT, normal oropharynx, no thrush Ears: bilateral: normal - Neck Neck: no lymphadenopathy, normal ROM, no rigidity, no stridor, no thyromegaly Carotids: bilateral: upstroke delayed Thyroid: bilateral: normal size - Respiratory Respiratory: bilateral: diminished, negative: dullness, rales, rhonchi, wheezing , prolonged expiration, prolonged inspiration - Cardiovascular Rhythm: regular Heart sounds: normal: S1, S2 Abnormal Heart Sounds: no systolic murmur, no S3 Gallop, no S4 Gallop - Gastrointestinal General gastrointestinal: normal bowel sounds, soft, no splenomegaly, no tenderness, no umbilical hernia, no ventral hernia - Integumentary Integumentary: normal, normal turgor - Neurologic Neurologic: focal deficits (significant weakness in both lower extremity is with spasticity) - Musculoskeletal Musculoskeletal: generalized weakness (bilateral lower extremity weakness.) - Psychiatric Psychiatric: A&O x's 3, appropriate affect, intact judgment & insight Results CBC & Chem 7: 01/28/17 05:19 01/28/17 09:27 Labs: Abnormal Lab Results - Last 24 Hours (Table) 01/27/17 01/27/17 01/27/17 Range/Units 19:31 20:00 20:00 WBC (3.8-10.6) k/uL RBC (4.30-5.90) m/uL Hct 38.2 L (39.0-53.0) % Neutrophils # (1.3-7.7) k/uL Lymphocytes # 0.6 L (1.0-4.8) k/uL Sodium 111 L* (137-145) mmol/L Potassium 2.9 L* (3.5-5.1) mmol/L Chloride 69 L* (98-107) mmol/L Creatinine (0.66-1.25) mg/dL Glucose 118 H (74-99) mg/dL POC Glucose (mg/dL) 123 H (75-99) mg/dL Osmolality (280-301) mosm/kg Plasma Lactic Acid Gennaro (0.7-2.0) mmol/L Calcium (8.4-10.2) mg/dL Magnesium 1.5 L (1.6-2.3) mg/dL Total Bilirubin 1.5 H (0.2-1.3) mg/dL AST 134 H (17-59) U/L ALT 175 H (21-72) U/L Alkaline Phosphatase 137 H (38-126) U/L Total Protein (6.3-8.2) g/dL Albumin (3.5-5.0) g/dL Urine Ketones (Negative) Urine Blood (Negative) Urine RBC (0-5) /hpf U Benzodiazepines Scrn (NotDetected) 01/27/17 01/27/17 01/27/17 Range/Units 20:00 20:00 21:15 WBC (3.8-10.6) k/uL RBC (4.30-5.90) m/uL Hct (39.0-53.0) % Neutrophils # (1.3-7.7) k/uL Lymphocytes # (1.0-4.8) k/uL Sodium (137-145) mmol/L Potassium (3.5-5.1) mmol/L Chloride (98-107) mmol/L Creatinine (0.66-1.25) mg/dL Glucose (74-99) mg/dL POC Glucose (mg/dL) (75-99) mg/dL Osmolality 239 L* (280-301) mosm/kg Plasma Lactic Acid Gennaro 2.5 H* (0.7-2.0) mmol/L Calcium (8.4-10.2) mg/dL Magnesium (1.6-2.3) mg/dL Total Bilirubin (0.2-1.3) mg/dL AST (17-59) U/L ALT (21-72) U/L Alkaline Phosphatase (38-126) U/L Total Protein (6.3-8.2) g/dL Albumin (3.5-5.0) g/dL Urine Ketones (Negative) Urine Blood (Negative) Urine RBC (0-5) /hpf U Benzodiazepines Scrn Detected H (NotDetected) 01/27/17 01/27/17 01/28/17 Range/Units 21:15 23:57 02:06 WBC (3.8-10.6) k/uL RBC (4.30-5.90) m/uL Hct (39.0-53.0) % Neutrophils # (1.3-7.7) k/uL Lymphocytes # (1.0-4.8) k/uL Sodium 112 L* (137-145) mmol/L Potassium (3.5-5.1) mmol/L Chloride (98-107) mmol/L Creatinine (0.66-1.25) mg/dL Glucose (74-99) mg/dL POC Glucose (mg/dL) 121 H (75-99) mg/dL Osmolality (280-301) mosm/kg Plasma Lactic Acid Gennaro (0.7-2.0) mmol/L Calcium (8.4-10.2) mg/dL Magnesium (1.6-2.3) mg/dL Total Bilirubin (0.2-1.3) mg/dL AST (17-59) U/L ALT (21-72) U/L Alkaline Phosphatase (38-126) U/L Total Protein (6.3-8.2) g/dL Albumin (3.5-5.0) g/dL Urine Ketones 1+ H (Negative) Urine Blood Moderate H (Negative) Urine RBC 17 H (0-5) /hpf U Benzodiazepines Scrn (NotDetected) 01/28/17 01/28/17 01/28/17 Range/Units 02:06 05:19 05:19 WBC 12.7 H (3.8-10.6) k/uL RBC 4.29 L (4.30-5.90) m/uL Hct 38.1 L (39.0-53.0) % Neutrophils # 10.9 H (1.3-7.7) k/uL Lymphocytes # 0.6 L (1.0-4.8) k/uL Sodium 113 L* 115 L* (137-145) mmol/L Potassium 3.0 L* 3.4 L (3.5-5.1) mmol/L Chloride 78 L* 81 L (98-107) mmol/L Creatinine 0.60 L 0.50 L (0.66-1.25) mg/dL Glucose 104 H 109 H (74-99) mg/dL POC Glucose (mg/dL) (75-99) mg/dL Osmolality (280-301) mosm/kg Plasma Lactic Acid Gennaro (0.7-2.0) mmol/L Calcium 8.0 L 7.9 L (8.4-10.2) mg/dL Magnesium (1.6-2.3) mg/dL Total Bilirubin (0.2-1.3) mg/dL AST 120 H (17-59) U/L ALT 159 H (21-72) U/L Alkaline Phosphatase (38-126) U/L Total Protein 5.9 L (6.3-8.2) g/dL Albumin 3.4 L (3.5-5.0) g/dL Urine Ketones (Negative) Urine Blood (Negative) Urine RBC (0-5) /hpf U Benzodiazepines Scrn (NotDetected) Microbiology - Last 24 Hours (Table) 01/27/17 21:15 Urine Culture - Preliminary Urine,Catheterized Thrombosis Risk Factor Assmnt - DVT/VTE Prophylaxis DVT/VTE Prophylaxis: Pharmacologic Prophylaxis ordered, Mechanical Prophylaxis ordered - Choose All That Apply Any of the Below Risk Factors Present?: No Other Risk Factors: Yes Each Risk Factor Represents 2 Points: Age 61-74 years Other congenital or acquired thrombophilia - If yes, enter type in comment: No Thrombosis Risk Factor Assessment Total Risk Factor Score: 2 Thrombosis Risk Factor Assessment Level: Low Risk Assessment and Plan Plan: Assessment and plan: 1. Hyponatremia due to the use of diuretics currently euvolemic. Patient is currently on IV fluid, continue fluid restriction 1500 mL in 24 hours, patient will have his sodium checked again around noon, if the sodium continues to rise and the patient will be started on hypotonic solution versus DDAVP, continue to monitor his mental status changes, avoid rapid correction of sodium to avoid central pontine melanosis. Physical therapy evaluation, as the patient stated that he has not been walking much he sits in a wheelchair most of the time due to significant lower back pain and weakness in both lower extremity is. 2. Hypokalemia secondary to the use of diuretics. Status post placement. Check management level. 3. CAD post-PCI in the care of cardiology. Continue patient on atenolol 50 mg orally once every day, Lipitor 20 mg orally once every day, aspirin 162 mg orally once every day. 4. Hypertension and hypertensive cardiovascular disease. Continue lisinopril 10 mg orally once every day, avoid hydrochlorothiazide. 5. Possible hypomagnesemia. Check management level. 6. Chronic low back pain. Status post spinal fusion. Continue current pain management. 7. Anxiety and depressive disorder. Continue Prozac 20 mg orally twice every day, continue Xanax 0.5 mg at bedtime and 0.5 mg the morning. 8. Hyperlipidemia. Continue patient on Lipitor 20 mg orally once every day. 9. PAD. Patient will continue aspirin 160 mg orally once every day as well as Lipitor 20 mg orally once every day, he would need to have arterial Dopplers of both for extremity since an outpatient. 10. DVT prophylaxis. Continue heparin 5000 units subcutaneously every 8 hours. 11. GI prophylaxis. Continue Protonix 40 mg IV push every 24 hours. 12. Patient is full code. 13. Admit to inpatient. Estimate a length of stay 2 midnights.
[2017-01-28 11:32] LABS: Magnesium 1.9 mg/dL (1.6-2.3)
--- NOTE | 2017-01-28 12:00 | CDI ---
In responding to this query, please exercise your independent professional judgment. The [facility] Coding Staff and Clinical Documentation Specialists appreciate your assistance in clarifying documentation, maintaining compliance with coding guidelines, accurately documenting patients condition and capturing severity of illness. The fact that a question is asked does not imply that any particular answer is desired or expected. Communication forms are a method of clarifying documentation and are not made part of the Legal Health Record. Thank you in advance for your clarification. Last Revision, February 2015 Patricia Pace [address] [place] [address] Documentation Clarification Form Date: 01/28/2017 11:48:00 AM From: Elli Loazno CCS, CCDS Admit Date: 01/27/2017 10:27:00 PM Patient Name: Pantera Rodriguez Visit Number: [id number] Discharge Date: Dr. Marnie López: Encephalopathy is documented in the History & Physical. Patient is admitted with unexpected altered mental status & hyponatremia, blood pressure 198/84. History: Previous alcohol abuse, CAD w/stent, previous [place]. Clinical Indicators: Labs: Na 111, K 2.9, Cl 69, Glucose 118, Mag 1.5, Total Bili 1.5. CT Brain: negative Treatment: IV fluid rate 100, IV fluid bolus, IV Kcl, IV Mag Sulf, IV Narcan Consults: Nephrology, Pulmonary/Critical Care In your professional opinion, can you please clarify the specific type of encephalopathy, if known? Hypertensive Encephalopathy Metabolic Encephalopathy Toxic Encephalopathy Hepatic Encephalopathy, if indicated, please clarify: o Indicate if any complications: Coma, other disease process? o Indicate whether acute, sub-acute or chronic? o Causal Condition: Alcoholism, Hepatitis, other disease process? Other, please specify Unable to determine Please document in your progress notes and discharge summary in order to capture severity of illness and risk of mortality. Include clinical findings that support your diagnosis. FYI: Press F11 to launch patient chart. RACHELLE
[2017-01-28] MEDS ORDERED: SODIUM CHLORIDE 0.9% 1,000 ML IV SCH (14:30)
[2017-01-28 18:03] LABS: Anion Gap 8 mmol/L; Blood Urea Nitrogen 13 mg/dL (9-20); Calcium 8.1 mg/dL (8.4-10.2); Carbon Dioxide 29 mmol/L (22-30); Chloride 83 mmol/L (98-107); Glucose 146 mg/dL (74-99); Non-African American GFR(MDRD) >60 (>60 ml/min/1.73 sqM); Potassium 3.3 mmol/L (3.5-5.1)
[2017-01-28 18:04] LABS: Sodium 120 mmol/L (137-145)
[2017-01-28] MEDS: POTASSIUM CHLORIDE ER 20 MEQ TAB.ER PO SCH ×2 (18:50→20:20)
[2017-01-28] MEDS: SENNOSIDES 8.6 MG TAB PO SCH (20:19)
[2017-01-28] MEDS: ATORVASTATIN 20 MG TAB PO SCH (20:19)
[2017-01-28] MEDS: ASPIRIN 81 MG PO SCH (21:38)
[2017-01-28] MEDS: SODIUM CHLORIDE 0.9% 1,000 ML IV SCH (21:41)
[2017-01-29] MEDS: POTASSIUM CHLORIDE ER 20 MEQ TAB.ER PO SCH (00:23)
[2017-01-29 01:25] LABS: Anion Gap 6 mmol/L; Blood Urea Nitrogen 14 mg/dL (9-20); Calcium 8.2 mg/dL (8.4-10.2); Carbon Dioxide 25 mmol/L (22-30); Chloride 88 mmol/L (98-107); Glucose 118 mg/dL (74-99); Non-African American GFR(MDRD) >60 (>60 ml/min/1.73 sqM); Potassium 3.9 mmol/L (3.5-5.1)
[2017-01-29 01:28] LABS: Sodium 119 mmol/L (137-145)
[2017-01-29 04:58] LABS: Anion Gap 7 mmol/L; Blood Urea Nitrogen 13 mg/dL (9-20); Calcium 8.1 mg/dL (8.4-10.2); Carbon Dioxide 24 mmol/L (22-30); Chloride 89 mmol/L (98-107); Glucose 109 mg/dL (74-99); Non-African American GFR(MDRD) >60 (>60 ml/min/1.73 sqM); Potassium 4.2 mmol/L (3.5-5.1)
[2017-01-29 05:11] LABS: Sodium 120 mmol/L (137-145)
[2017-01-29] MEDS: ATENOLOL 50 MG TAB PO SCH (09:22)
[2017-01-29] MEDS: FLUoxetine HCL 20 MG CAP PO SCH ×2 (09:23→20:14)
[2017-01-29] MEDS: CHOLECALCIFEROL 1,000 UNIT TAB PO SCH (09:23)
[2017-01-29] MEDS: HEPARIN SODIUM,PORCINE 5,000 UNIT/ML 1 ML VIAL SQ SCH ×2 (09:23→20:14)
[2017-01-29] MEDS: PANTOPRAZOLE 40 MG/10 ML VIAL IVP SCH (09:24)
[2017-01-29] MEDS: LISINOPRIL 10 MG TAB PO SCH (09:24)
--- NOTE | 2017-01-29 10:33 | P.PN ---
<Olga Mendoza - Last Filed: 01/29/17 10:25> Subjective Progress Note Date: 01/29/17 Principal diagnosis: This is a 71-year-old male patient came into the emergency department yesterday because of generalized weakness over the past couple of days. The patient was also somnolent and he was unable to stand up due to his extensive weakness. His condition was progressively getting worse and yesterday felt really bad. No fever. No chills. In the burst department the patient was found to have severe hypochloremic hyponatremia with a sodium level of 111. His chloride level was at 78. His BUN was 13 with a creatinine of 0.6. Glucose was 104. His lactic acid level was at 1.1. His urine osmolality was 407. The serum osmolality was at 407 and a urine sodium was at 45. Patient's urine toxin was positive for benzodiazepines. The patient was recently switched to a antihypertensive medication that includes hydrochlorothiazide. He is not a beer drinker. No history of of malignancy. No history of any other medication change recently. He is on Prozac 20 mg by mouth daily. Chest x-ray showed COPD otherwise clear. CAT scan of the brain was also negative. No history of any hypothyroidism. No diarrhea. No nausea. No vomiting. No hematemesis. Based on this and based on his symptomatically hyponatremia the patient was started on hypertonic 3% saline at the rate of 20 mL an hour and his current sodium level is up 115. He is still very tired. He is requesting to sleep at all times. The patient is known to have multiple other medical problems including coronary artery disease with a previous coronary stent insertion, hypertension, previous myocardial infarction, and COPD. The patient was seen again today 01/29/2017 in follow-up in the intensive care unit. He is currently awake and alert in no acute distress. He continues to be slow to respond. He also needs constant reminding of where he has and the details of his current condition. His current sodium is 120. His current receiving 0.9 normal saline at 50 MLS per hour. He has remained hemodynamically stable. He's been afebrile. Maintaining good O2 saturations in the high 90s on 2 L/m per nasal cannula. Urine output has been adequate. Creatinine 0.60. Objective - Vital Signs Vital signs: Vital Signs Temp 98 F 01/29/17 08:00 Pulse 68 01/29/17 09:00 Resp 16 01/29/17 09:00 BP 157/78 01/29/17 09:00 Pulse Ox 99 01/29/17 09:00 Intake & Output 01/28/17 01/29/17 01/29/17 18:59 06:59 18:59 Intake Total 652 450 100 Output Total 895 320 280 Balance -243 130 -180 Weight 60.9 kg Intake: IV 40 450 100 Sodium Chloride 0.9% 1, 450 100 000 ml @ 50 mls/hr IV . Q20H [facility] Rx#:[id number] Sodium Chloride 3%( 40 Hypertonic) 500 ml @ 20 mls/hr IV .Q24H [facility] Rx#: [id number] Intake, IV Titration 302 Amount Sodium Chloride 0.9% 1, 302 000 ml @ 60 mls/hr IV . [id number] [facility] Rx#:[id number] Oral 310 Output: Urine 895 320 280 Other: Voiding Method Indwelling Catheter Indwelling Catheter Indwelling Catheter - Exam The patient appeared well nourished and normally developed. Vital signs as documented. Head exam is unremarkable. No scleral icterus or corneal arcus noted. Neck is without jugular venous distension, thyromegaly, or carotid bruits. Carotid upstrokes are brisk bilaterally. Lungs are clear to auscultation and percussion. Cardiac exam reveals the PMI to be normally sized and situated. Rhythm is regular. First and second heart sounds normal. No murmurs, rubs or gallops. Abdominal exam reveals normal bowel sounds, no masses , no organomegaly and no aortic enlargement. Extremities are nonedematous and both femoral and pedal pulses are normal. Neurologically the patient's exam is nonfocal however he is weak and he is unable to ambulate yet. Motor function is diminished in all 4 extremities symmetrically. No cranial nerve deficits. Skin is negative for any open wounds or sores or ulceration or cellulitis. - Labs CBC & Chem 7: 01/28/17 05:19 01/29/17 04:08 Labs: Abnormal Lab Results - Last 24 Hours (Table) 01/28/17 01/28/17 01/28/17 Range/Units 09:27 13:28 17:32 Sodium 119 L* 117 L* 120 L* (137-145) mmol/L Potassium 3.3 L 3.3 L (3.5-5.1) mmol/L Chloride 82 L 83 L (98-107) mmol/L Creatinine 0.58 L (0.66-1.25) mg/dL Glucose 103 H 146 H (74-99) mg/dL Calcium 7.9 L 8.1 L (8.4-10.2) mg/dL TSH 0.206 L (0.465-4.680) mIU/L Free T4 2.30 H (0.78-2.19) ng/dL 01/28/17 01/29/17 01/29/17 Range/Units 20:33 01:06 04:08 Sodium 119 L* 119 L* 120 L* (137-145) mmol/L Potassium (3.5-5.1) mmol/L Chloride 88 L 89 L (98-107) mmol/L Creatinine 0.60 L 0.60 L (0.66-1.25) mg/dL Glucose 118 H 109 H (74-99) mg/dL Calcium 8.2 L 8.1 L (8.4-10.2) mg/dL TSH (0.465-4.680) mIU/L Free T4 (0.78-2.19) ng/dL Microbiology - Last 24 Hours (Table) 01/27/17 21:15 Urine Culture - Final Urine,Catheterized Assessment and Plan Plan: Assessment 1 symptomatic hyponatremia, possibly drug induced secondary to intake of hydrochlorothiazide 2 profound generalized weakness secondary to above, improving slowly 3 coronary artery disease with previous coronary intervention and stenting 4 hypertension 5 COPD 6 hyperlipidemia Plan The patient was seen and evaluated by Dr. Xie. His current sodium is 120. He remains on 0.9 normal saline at 50 MLS per hour. He is being followed by nephrology. Continue to monitor his sodium levels. He is on heparin subcutaneous for DVT prophylaxis. Protonix for GI prophylaxis. We'll keep him in the intensive care unit another 24 hours. We'll continue to follow. <Naresh Xie - Last Filed: 01/29/17 10:36> Objective - Vital Signs Vital signs: Vital Signs Temp 98 F 01/29/17 08:00 Pulse 68 01/29/17 09:00 Resp 16 01/29/17 09:00 BP 157/78 01/29/17 09:00 Pulse Ox 99 01/29/17 09:00 Intake & Output 01/28/17 01/29/17 01/29/17 18:59 06:59 18:59 Intake Total 652 450 100 Output Total 895 320 280 Balance -243 130 -180 Weight 60.9 kg Intake: IV 40 450 100 Sodium Chloride 0.9% 1, 450 100 000 ml @ 50 mls/hr IV . Q20H [facility] Rx#:[id number] Sodium Chloride 3%( 40 Hypertonic) 500 ml @ 20 mls/hr IV .Q24H [facility] Rx#: [id number] Intake, IV Titration 302 Amount Sodium Chloride 0.9% 1, 302 000 ml @ 60 mls/hr IV . [id number] [facility] Rx#:[id number] Oral 310 Output: Urine 895 320 280 Other: Voiding Method Indwelling Catheter Indwelling Catheter Indwelling Catheter - Labs CBC & Chem 7: 01/28/17 05:19 01/29/17 04:08 Labs: Abnormal Lab Results - Last 24 Hours (Table) 01/28/17 01/28/17 01/28/17 Range/Units 09:27 13:28 17:32 Sodium 119 L* 117 L* 120 L* (137-145) mmol/L Potassium 3.3 L 3.3 L (3.5-5.1) mmol/L Chloride 82 L 83 L (98-107) mmol/L Creatinine 0.58 L (0.66-1.25) mg/dL Glucose 103 H 146 H (74-99) mg/dL Calcium 7.9 L 8.1 L (8.4-10.2) mg/dL TSH 0.206 L (0.465-4.680) mIU/L Free T4 2.30 H (0.78-2.19) ng/dL 01/28/17 01/29/17 01/29/17 Range/Units 20:33 01:06 04:08 Sodium 119 L* 119 L* 120 L* (137-145) mmol/L Potassium (3.5-5.1) mmol/L Chloride 88 L 89 L (98-107) mmol/L Creatinine 0.60 L 0.60 L (0.66-1.25) mg/dL Glucose 118 H 109 H (74-99) mg/dL Calcium 8.2 L 8.1 L (8.4-10.2) mg/dL TSH (0.465-4.680) mIU/L Free T4 (0.78-2.19) ng/dL Microbiology - Last 24 Hours (Table) 01/27/17 21:15 Urine Culture - Final Urine,Catheterized Assessment and Plan Plan: This is a joint evaluation that was done along with a nurse practitioner. The patient was seen in follow-up. I attest to the information mentioned above. The patient's sodium level is improved. He is clinically improving covert is improvement is slow. He still lethargic and weak and slow in answering questions at times confused. Anticipate further improvement. Keep in ICU for another 24 hours. Restrict fluids.
--- NOTE | 2017-01-29 11:53 | P.PN ---
Subjective Patient is seen in follow-up for hyponatremia. Patient was recently started on a thiazide diuretic which is currently held. Sodium level was 111 on admission on January 27 at 8 PM. It is up to 120 as of this morning. Patient has a Romero catheter in place and is nonoliguric. Urine output has improved this morning. Oral intake is still poor. Patient appears more alert today. Vital signs are stable. General: The patient appeared well nourished and normally developed. HEENT: Head exam is unremarkable. Neck is without jugular venous distension. LUNGS: Lungs are clear to auscultation and percussion. Breath sounds decreased. HEART: Rate and Rhythm are regular. First and second heart sounds normal. No murmurs, rubs or gallops. ABDOMEN: Abdominal exam reveals normal bowel sounds. Non-tender and non- distended. No evidence of peritonitis. EXTREMITITES: No clubbing, cyanosis, or edema. Objective - Vital Signs Vital signs: Vital Signs Temp 98 F 01/29/17 08:00 Pulse 68 01/29/17 09:00 Resp 16 01/29/17 09:00 BP 157/78 01/29/17 09:00 Pulse Ox 99 01/29/17 09:00 Intake & Output 01/28/17 01/29/17 01/29/17 18:59 06:59 18:59 Intake Total 652 450 100 Output Total 895 320 280 Balance -243 130 -180 Weight 60.9 kg Intake: IV 40 450 100 Sodium Chloride 0.9% 1, 450 100 000 ml @ 50 mls/hr IV . Q20H [facility] Rx#:[id number] Sodium Chloride 3%( 40 Hypertonic) 500 ml @ 20 mls/hr IV .Q24H [facility] Rx#: [id number] Intake, IV Titration 302 Amount Sodium Chloride 0.9% 1, 302 000 ml @ 60 mls/hr IV . [id number] [facility] Rx#:[id number] Oral 310 Output: Urine 895 320 280 Other: Voiding Method Indwelling Catheter Indwelling Catheter Indwelling Catheter - Labs CBC & Chem 7: 01/28/17 05:19 01/29/17 04:08 Labs: Abnormal Lab Results - Last 24 Hours (Table) 01/28/17 01/28/17 01/28/17 Range/Units 13:28 17:32 20:33 Sodium 117 L* 120 L* 119 L* (137-145) mmol/L Potassium 3.3 L (3.5-5.1) mmol/L Chloride 83 L (98-107) mmol/L Creatinine (0.66-1.25) mg/dL Glucose 146 H (74-99) mg/dL Calcium 8.1 L (8.4-10.2) mg/dL 01/29/17 01/29/17 Range/Units 01:06 04:08 Sodium 119 L* 120 L* (137-145) mmol/L Potassium (3.5-5.1) mmol/L Chloride 88 L 89 L (98-107) mmol/L Creatinine 0.60 L 0.60 L (0.66-1.25) mg/dL Glucose 118 H 109 H (74-99) mg/dL Calcium 8.2 L 8.1 L (8.4-10.2) mg/dL Microbiology - Last 24 Hours (Table) 01/27/17 21:15 Urine Culture - Final Urine,Catheterized Assessment and Plan Plan: Assessment: #1. Hyponatremia. Currently euvolemic in nature. Etiology is use of thiazide diuretic as well as urinary retention. Sodium level was 111 on admission and is up to 120 this morning. #2. Altered mental status secondary to hyponatremia. Patient's currently alert and oriented 3. #3. Hypokalemia secondary to diuretics. Status post replacement. Magnesium replete. #4. Benign hypertension. Plan: Check sodium level now. Encouraged oral intake. Maintain 1.5 L fluid restriction. Avoid rapid correction. Continue with normal saline at 50 mL an hour for now.
--- NOTE | 2017-01-29 13:13 | P.PN ---
Subjective Progress Note Date: 01/29/17 This is a 71-year-old male patient of Dr. Street with past medical history of coronary artery disease, myocardial infarction status post stent, diabetes mellitus type 2, hypertension, depression, anxiety, patient was brought into the emergency department at [facility] yesterday with his due to generalized weakness and inability to ambulate, patient was having significant mental status changes with significant encephalopathy patient was found to have a sodium 411 he was recently started on lisinopril hydrochlorothiazide for his primary care physician, and the patient was found to have an elevated serum osmolality and urine aspirin D with elevated urine sodium initially he was hypovolemic and now he is euvolemic hyponatremia due to the use of thiazide diuretics, patient also was found to have a significant hypokalemia due to the use of the diuretics as well who was admitted to the intensive care unit he was seen in consultation by nephrology as well as by critical care medicine Dr. Xie my patient also was started on hypertonic 3 % solution and he is currently off all IV fluids and his sodium level is 119, repeat a sodium level if the sodium continues to rise the patient would be started on half normal saline as well as possible DDAVP. 01/29: Patient remains in the intensive care unit. He continues to be weak and confused. Sodium is now I'll 120 and chloride 89. He has followed by nephrology and Dr. Xie from pulmonary medicine. He is on a 1.5 L fluid restriction and is continued on IV fluids of normal saline at 50 mL per hour. Objective - Vital Signs Vital signs: Vital Signs Temp 98 F 01/29/17 08:00 Pulse 68 01/29/17 09:00 Resp 16 01/29/17 09:00 BP 157/78 01/29/17 09:00 Pulse Ox 99 01/29/17 09:00 Intake & Output 01/28/17 01/29/17 01/29/17 18:59 06:59 18:59 Intake Total 652 450 50 Output Total 895 320 200 Balance -243 130 -150 Weight 60.9 kg Intake: IV 40 450 50 Sodium Chloride 0.9% 1, 450 50 000 ml @ 50 mls/hr IV . Q20H [facility] Rx#:[id number] Sodium Chloride 3%( 40 Hypertonic) 500 ml @ 20 mls/hr IV .Q24H [facility] Rx#: [id number] Intake, IV Titration 302 Amount Sodium Chloride 0.9% 1, 302 000 ml @ 60 mls/hr IV . [id number] [facility] Rx#:[id number] Oral 310 Output: Urine 895 320 200 Other: Voiding Method Indwelling Catheter Indwelling Catheter Indwelling Catheter - Exam General appearance: no acute distress, thin - EENT Eyes: anicteric sclerae, EOMI, PERRLA, no ptosis, no scleral icterus, normal appearance ENT: hearing grossly normal, NA/AT, normal oropharynx, no thrush Ears: bilateral: normal - Neck Neck: no lymphadenopathy, normal ROM, no rigidity, no stridor, no thyromegaly Carotids: bilateral: upstroke delayed Thyroid: bilateral: normal size - Respiratory Respiratory: bilateral: diminished, negative: dullness, rales, rhonchi, wheezing , prolonged expiration, prolonged inspiration - Cardiovascular Rhythm: regular Heart sounds: normal: S1, S2 Abnormal Heart Sounds: no systolic murmur, no S3 Gallop, no S4 Gallop - Gastrointestinal General gastrointestinal: normal bowel sounds, soft, no splenomegaly, no tenderness, no umbilical hernia, no ventral hernia - Integumentary Integumentary: normal, normal turgor - Neurologic Neurologic: focal deficits (significant weakness in both lower extremity is with spasticity) - Musculoskeletal Musculoskeletal: generalized weakness (bilateral lower extremity weakness.) - Psychiatric Psychiatric: A&O x's 3, appropriate affect, intact judgment & insight - Labs CBC & Chem 7: 01/28/17 05:19 01/29/17 04:08 Labs: Abnormal Lab Results - Last 24 Hours (Table) 01/28/17 01/28/17 01/28/17 Range/Units 09:27 13:28 17:32 Sodium 119 L* 117 L* 120 L* (137-145) mmol/L Potassium 3.3 L 3.3 L (3.5-5.1) mmol/L Chloride 82 L 83 L (98-107) mmol/L Creatinine 0.58 L (0.66-1.25) mg/dL Glucose 103 H 146 H (74-99) mg/dL Calcium 7.9 L 8.1 L (8.4-10.2) mg/dL TSH 0.206 L (0.465-4.680) mIU/L Free T4 2.30 H (0.78-2.19) ng/dL 01/28/17 01/29/17 01/29/17 Range/Units 20:33 01:06 04:08 Sodium 119 L* 119 L* 120 L* (137-145) mmol/L Potassium (3.5-5.1) mmol/L Chloride 88 L 89 L (98-107) mmol/L Creatinine 0.60 L 0.60 L (0.66-1.25) mg/dL Glucose 118 H 109 H (74-99) mg/dL Calcium 8.2 L 8.1 L (8.4-10.2) mg/dL TSH (0.465-4.680) mIU/L Free T4 (0.78-2.19) ng/dL Microbiology - Last 24 Hours (Table) 01/27/17 21:15 Urine Culture - Final Urine,Catheterized Assessment and Plan Plan: 1. Hyponatremia due to the use of diuretics currently euvolemic with metabolic encephalopathy. Patient is currently on IV fluid, continue fluid restriction 1500 mL in 24 hours, continue to monitor his mental status changes, avoid rapid correction of sodium to avoid central pontine melanosis. Physical therapy evaluation, as the patient stated that he has not been walking much he sits in a wheelchair most of the time due to significant lower back pain and weakness in both lower extremity is. 2. Hypokalemia secondary to the use of diuretics. Status post placement. Check management level. 3. CAD post-PCI in the care of cardiology. Continue patient on atenolol 50 mg orally once every day, Lipitor 20 mg orally once every day, aspirin 162 mg orally once every day. 4. Hypertension and hypertensive cardiovascular disease. Continue lisinopril 10 mg orally once every day, avoid hydrochlorothiazide. 5. Possible hypomagnesemia. Check management level. 6. Chronic low back pain. Status post spinal fusion. Continue current pain management. 7. Generalized anxiety disorder and recurrent depression. Continue Prozac 20 mg orally twice every day, continue Xanax 0.5 mg at bedtime and 0.5 mg the morning. 8. Hyperlipidemia. Continue patient on Lipitor 20 mg orally once every day. 9. PAD. Patient will continue aspirin 160 mg orally once every day as well as Lipitor 20 mg orally once every day, he would need to have arterial Dopplers of both for extremity since an outpatient. 10. DVT prophylaxis. Continue heparin 5000 units subcutaneously every 8 hours. 11. GI prophylaxis. Continue Protonix 40 mg IV push every 24 hours. 12. Patient is full code. Discharge plan: To be determined. PT, OT, social work consults added. Impression and plan of care have been directed as dictated by the signing physician. Amparo Shelton nurse practitioner acting as scribe for signing physician.
[2017-01-29] MEDS: SODIUM CHLORIDE 3%(HYPERTONIC) 500 ML IV SCH (14:30)
[2017-01-29] MEDS ORDERED: SODIUM CHLORIDE 3%(HYPERTONIC) 500 ML IV SCH (15:15)
[2017-01-29] MEDS: ALPRAZolam 0.25 MG TAB PO PRN ×2 (15:21→20:13)
[2017-01-29 17:48] LABS: Uric Acid 2.1 mg/dL (3.5-8.5)
[2017-01-29] MEDS: SODIUM CHLORIDE 0.9% 1,000 ML IV SCH (19:17)
[2017-01-29] MEDS: SENNOSIDES 8.6 MG TAB PO SCH (20:14)
[2017-01-29] MEDS: ASPIRIN 81 MG PO SCH (20:14)
[2017-01-29] MEDS: ATORVASTATIN 20 MG TAB PO SCH (20:14)
[2017-01-30 03:18] LABS: Basophils % (A) 0 %; CH 30.6; CHCM 34.3; Eosinophils # (A) 0.1 k/uL (0-0.7); Eosinophils % (A) 1 %; HCT 35.5 % (39.0-53.0); HDW 2.39; HGB 11.9 gm/dL (13.0-17.5); Luc % (Auto) 2; Lymphocytes # (A) 0.8 k/uL (1.0-4.8); Lymphocytes % (A) 10 %; MCHC 33.5 g/dL (31.0-37.0); MCV 89.4 fL (80.0-100.0); Monocytes # (A) 0.6 k/uL (0-1.0); Monocytes % (A) 7 %; Neutrophils # (A) 6.9 k/uL (1.3-7.7); Neutrophils % (A) 80 %; RBC 3.97 m/uL (4.30-5.90); WBC 8.6 k/uL (3.8-10.6); WBC (Perox) 8.51
[2017-01-30 03:31] LABS: Anion Gap 6 mmol/L; Blood Urea Nitrogen 12 mg/dL (9-20); Calcium 8.3 mg/dL (8.4-10.2); Carbon Dioxide 28 mmol/L (22-30); Chloride 92 mmol/L (98-107); Glucose 99 mg/dL (74-99); Non-African American GFR(MDRD) >60 (>60 ml/min/1.73 sqM); Potassium 3.6 mmol/L (3.5-5.1); Sodium 126 mmol/L (137-145)
[2017-01-30] MEDS ORDERED: Potassium Replacement Protocol 1 EACH MISC MISCELLANE PRN (03:40)
[2017-01-30] MEDS ORDERED: POTASSIUM CHLORIDE ER 20 MEQ TAB.ER PO SCH (05:00)
[2017-01-30] MEDS: LISINOPRIL 10 MG TAB PO SCH (06:49)
--- NOTE | 2017-01-30 07:21 | P.PN ---
Subjective Progress Note Date: 01/30/17 This is a 71-year-old male patient came into the emergency department yesterday because of generalized weakness over the past couple of days. The patient was also somnolent and he was unable to stand up due to his extensive weakness. His condition was progressively getting worse and yesterday felt really bad. No fever. No chills. In the burst department the patient was found to have severe hypochloremic hyponatremia with a sodium level of 111. His chloride level was at 78. His BUN was 13 with a creatinine of 0.6. Glucose was 104. His lactic acid level was at 1.1. His urine osmolality was 407. The serum osmolality was at 407 and a urine sodium was at 45. Patient's urine toxin was positive for benzodiazepines. The patient was recently switched to a antihypertensive medication that includes hydrochlorothiazide. He is not a beer drinker. No history of of malignancy. No history of any other medication change recently. He is on Prozac 20 mg by mouth daily. Chest x-ray showed COPD otherwise clear. CAT scan of the brain was also negative. No history of any hypothyroidism. No diarrhea. No nausea. No vomiting. No hematemesis. Based on this and based on his symptomatically hyponatremia the patient was started on hypertonic 3% saline at the rate of 20 mL an hour and his current sodium level is up 115. He is still very tired. He is requesting to sleep at all times. The patient is known to have multiple other medical problems including coronary artery disease with a previous coronary stent insertion, hypertension, previous myocardial infarction, and COPD. The patient was seen again today 01/29/2017 in follow-up in the intensive care unit. He is currently awake and alert in no acute distress. He continues to be slow to respond. He also needs constant reminding of where he has and the details of his current condition. His current sodium is 120. His current receiving 0.9 normal saline at 50 MLS per hour. He has remained hemodynamically stable. He's been afebrile. Maintaining good O2 saturations in the high 90s on 2 L/m per nasal cannula. Urine output has been adequate. Creatinine 0.60. On 01/30/2017 the patient remains in intensive care unit. He has been slow improvement in his sodium level is up to 126. He is currently off all infusion the patient is receiving no IV fluids and his IV is to Hep-Lock. He is on fluid restrictions. He is gradually improving. He is more interactive on today 's evaluation. No nausea. No vomiting. No diarrhea. No abdominal pain. Adequate urine output. The rest of the electrodes are all within normal limits. His potassium has been replaced. No other significant events overnight. Seems to get stronger and possibly will be able to ambulate today. Objective - Vital Signs Vital signs: Vital Signs Temp 98.2 F 01/30/17 04:00 Pulse 63 01/30/17 06:00 Resp 18 01/30/17 06:00 BP 166/81 01/30/17 06:00 Pulse Ox 99 01/30/17 06:00 Intake & Output 01/29/17 01/30/17 01/30/17 18:59 06:59 18:59 Intake Total 650 130 Output Total 910 1300 Balance -260 -1170 Weight 60.9 kg 58.6 kg Intake: IV 500 Sodium Chloride 0.9% 1, 350 000 ml @ 50 mls/hr IV . Q20H [facility] Rx#:[id number] Sodium Chloride 3%( 150 Hypertonic) 500 ml @ 20 mls/hr IV .Q24H [facility] Rx#: [id number] Intake, IV Titration 150 110 Amount Sodium Chloride 3%( 150 110 Hypertonic) 500 ml @ 40 mls/hr IV .[id number] [facility] Rx #:[id number] Oral 20 Output: Urine 910 1300 Other: Voiding Method Indwelling Catheter Indwelling Catheter # Voids 1 1 - Exam The patient appeared well nourished and normally developed. Vital signs as documented. Head exam is unremarkable. No scleral icterus or corneal arcus noted. Neck is without jugular venous distension, thyromegaly, or carotid bruits. Carotid upstrokes are brisk bilaterally. Lungs are clear to auscultation and percussion. Cardiac exam reveals the PMI to be normally sized and situated. Rhythm is regular. First and second heart sounds normal. No murmurs, rubs or gallops. Abdominal exam reveals normal bowel sounds, no masses , no organomegaly and no aortic enlargement. Extremities are nonedematous and both femoral and pedal pulses are normal. Neurologically the patient's exam is nonfocal however he is weak and he is unable to ambulate yet. Motor function is diminished in all 4 extremities symmetrically. No cranial nerve deficits. Skin is negative for any open wounds or sores or ulceration or cellulitis. - Labs CBC & Chem 7: 01/30/17 02:59 01/30/17 02:59 Labs: Abnormal Lab Results - Last 24 Hours (Table) 01/29/17 01/29/17 01/29/17 Range/Units 12:16 17:01 17:37 RBC (4.30-5.90) m/uL Hgb (13.0-17.5) gm/dL Hct (39.0-53.0) % Lymphocytes # (1.0-4.8) k/uL Sodium 122 L 124 L 125 L (137-145) mmol/L Chloride (98-107) mmol/L Creatinine (0.66-1.25) mg/dL Uric Acid 2.1 L (3.5-8.5) mg/dL Calcium (8.4-10.2) mg/dL 01/29/17 01/30/17 01/30/17 Range/Units 21:28 02:59 02:59 RBC 3.97 L (4.30-5.90) m/uL Hgb 11.9 L (13.0-17.5) gm/dL Hct 35.5 L (39.0-53.0) % Lymphocytes # 0.8 L (1.0-4.8) k/uL Sodium 126 L 126 L (137-145) mmol/L Chloride 92 L (98-107) mmol/L Creatinine 0.60 L (0.66-1.25) mg/dL Uric Acid (3.5-8.5) mg/dL Calcium 8.3 L (8.4-10.2) mg/dL Assessment and Plan Plan: Assessment 1 symptomatic hyponatremia, possibly drug induced secondary to intake of hydrochlorothiazide 2 profound generalized weakness secondary to above, improving slowly 3 coronary artery disease with previous coronary intervention and stenting 4 hypertension, patient is off hydrochlorothiazide and the lisinopril was restarted. 5 COPD 6 hyperlipidemia Plan Continue monitoring the blood pressure. Continue monitoring the sodium level. Restart Zestoretic 10 mg a day and increase the dose based on the blood pressure control. He is also on Tenormin 50 mg on a daily basis. Fluid restriction. Monitor sodium level. Will be moving out of the intensive care unit today.
[2017-01-30] MEDS: CHOLECALCIFEROL 1,000 UNIT TAB PO SCH (08:10)
[2017-01-30] MEDS: ATENOLOL 50 MG TAB PO SCH (08:10)
[2017-01-30] MEDS: FLUoxetine HCL 20 MG CAP PO SCH ×3 (08:10→20:55)
[2017-01-30] MEDS: PANTOPRAZOLE 40 MG/10 ML VIAL IVP SCH (08:10)
[2017-01-30] MEDS: HEPARIN SODIUM,PORCINE 5,000 UNIT/ML 1 ML VIAL SQ SCH ×3 (08:10→20:55)
[2017-01-30] MEDS ORDERED: FUROSEMIDE 20 MG TAB PO STA (09:28)
[2017-01-30] MEDS ORDERED: LISINOPRIL 10 MG TAB PO ONE (09:45)
--- NOTE | 2017-01-30 10:17 | P.PN ---
Subjective Patient is seen in follow-up for hyponatremia. Patient was recently started on a thiazide diuretic which is currently held. Sodium level was 111 on admission on January 27 at 8 PM. It is up to 126 as of this morning. Patient has a Romero catheter in place and is nonoliguric. Urine output is good - 75-100 cc/ hr. Oral intake is fair. Patient is awake and alert. Blood pressures are on the higher side. Vital signs are stable. General: The patient appeared well nourished and normally developed. HEENT: Head exam is unremarkable. Neck is without jugular venous distension. LUNGS: Lungs are clear to auscultation and percussion. Breath sounds decreased. HEART: Rate and Rhythm are regular. First and second heart sounds normal. No murmurs, rubs or gallops. ABDOMEN: Abdominal exam reveals normal bowel sounds. Non-tender and non- distended. No evidence of peritonitis. EXTREMITITES: No clubbing, cyanosis, or edema. Objective - Vital Signs Vital signs: Vital Signs Temp 98.2 F 01/30/17 08:00 Pulse 73 01/30/17 09:00 Resp 20 01/30/17 09:00 BP 169/85 01/30/17 09:00 Pulse Ox 100 01/30/17 09:00 Intake & Output 01/29/17 01/30/17 01/30/17 18:59 06:59 18:59 Intake Total 650 130 0 Output Total 910 1300 250 Balance -260 -1170 -250 Weight 60.9 kg 58.6 kg Intake: IV 500 Sodium Chloride 0.9% 1, 350 000 ml @ 50 mls/hr IV . Q20H JADIEL Rx#:[id number] Sodium Chloride 3%( 150 Hypertonic) 500 ml @ 20 mls/hr IV .Q24H JADIEL Rx#: [id number] Intake, IV Titration 150 110 Amount Sodium Chloride 3%( 150 110 Hypertonic) 500 ml @ 40 mls/hr IV .[id number] JADIEL Rx #:[id number] Oral 20 0 Output: Urine 910 1300 250 Other: Voiding Method Indwelling Catheter Indwelling Catheter Indwelling Catheter # Voids 1 1 - Labs CBC & Chem 7: 01/30/17 02:59 01/30/17 06:42 Labs: Abnormal Lab Results - Last 24 Hours (Table) 01/29/17 01/29/1717 Range/Units 12:16 17:01 17:37 RBC (4.30-5.90) m/uL Hgb (13.0-17.5) gm/dL Hct (39.0-53.0) % Lymphocytes # (1.0-4.8) k/uL Sodium 122 L 124 L 125 L (137-145) mmol/L Chloride (98-107) mmol/L Creatinine (0.66-1.25) mg/dL Uric Acid 2.1 L (3.5-8.5) mg/dL Calcium (8.4-10.2) mg/dL 01/29/17 01/30/17 01/30/17 Range/Units 21:28 02:59 02:59 RBC 3.97 L (4.30-5.90) m/uL Hgb 11.9 L (13.0-17.5) gm/dL Hct 35.5 L (39.0-53.0) % Lymphocytes # 0.8 L (1.0-4.8) k/uL Sodium 126 L 126 L (137-145) mmol/L Chloride 92 L (98-107) mmol/L Creatinine 0.60 L (0.66-1.25) mg/dL Uric Acid (3.5-8.5) mg/dL Calcium 8.3 L (8.4-10.2) mg/dL 01/30/17 Range/Units 06:42 RBC (4.30-5.90) m/uL Hgb (13.0-17.5) gm/dL Hct (39.0-53.0) % Lymphocytes # (1.0-4.8) k/uL Sodium 126 L (137-145) mmol/L Chloride (98-107) mmol/L Creatinine (0.66-1.25) mg/dL Uric Acid (3.5-8.5) mg/dL Calcium (8.4-10.2) mg/dL Assessment and Plan Plan: Assessment: #1. Hyponatremia. Currently euvolemic in nature. Etiology is use of thiazide diuretic as well as urinary retention. Patient was taking Prozac which can induce SIADH. Low uric acid also suggestive of SIADH. Sodium level was 111 on admission and is up to 126 this morning. He will need screenings for underlying malignancy as an outpatient. No evidence of hypothyroidism. #2. Altered mental status secondary to hyponatremia. Patient's currently alert and oriented 3. #3. Hypokalemia secondary to diuretics. Status post replacement. Magnesium replete. #4. Benign hypertension. Blood pressures on the higher side. Plan: Check sodium level at 2 PM today. Encouraged oral intake - add ensure 3 times a day. Maintain 1.5 L fluid restriction. Avoid rapid correction. Increase lisinopril to 20 mg daily. Lasix 20 mg once now. May need to use an alternative to Prozac.
--- NOTE | 2017-01-30 11:56 | PN ---
PROGRESS NOTE INTERVAL HISTORY: Patient continues to be lethargic and weak. No major events reported by nursing staff. Patient is still eating less than 25% of his 3 meals a day and avoids eating or drinking anything extra. Continued to be on 3% infusion up until yesterday. The patient is still on fluid restriction, but patient is not even reaching the limit for his fluid restriction due to his oral intake. No major events reported by nursing staff at this point. PHYSICAL EXAMINATION: VITAL SIGNS: 98.2, 78, 22, 154/76, and saturation is 99% on room air. LUNGS: Diminished bilaterally. HEART: Normal S1, S2. ABDOMEN: Soft. No tenderness. Bowel sounds positive in all 4 quadrants. LOWER EXTREMITIES: No edema. PSYCH: Alert and oriented times 2 to 3. Patient seems to be confused, but when I reoriented the patient, he was appropriate and answering questions appropriately. SKIN: No new rash. IMAGING AND LABS: Chemistry revealed stable sodium at 126, slightly improved from yesterday at 124. The rest of his chemistry within acceptable range. His hemoglobin continues to be stable at 11.9. ASSESSMENT AND PLAN: 1. Acute hyponatremia. Patient improved with 3% infusion from 110 on presentation to 126 today. I would like to encourage oral intake, improve his nutritional status. I discussed with Nephrology and Pulmonology current treatment plan, and patient will be safely transferred out of the intensive care unit. I would like to monitor his electrolytes closely, repeat them in the morning. Continue with current management. Discussed with Nephrology to start patient on Lasix today to improve his anasarca, which is multifactorial in nature. Would like also to increase his blood pressure medication for blood pressure control. 2. Hypertension, uncontrolled. Will increase lisinopril to 20, start Lasix. 3. Anasarca. Management as above. 4. Severe protein-calorie malnutrition. Will start Ensure 3 times daily. 5. Anemia, stable. 6. Coronary artery disease. Continue cardioprotective medication. 7. Peripheral arterial disease, stable. 8. Anxiety and depression. Will continue home medication. 9. Discharge planning based on clinical progress. MMODL / IJN: [id number] /
[2017-01-30] MEDS ORDERED: FUROSEMIDE 20 MG TAB PO SCH (16:00)
[2017-01-30 17:20] LABS: Glucose,Whole Blood 104 mg/dL (75-99)
--- NOTE | 2017-01-30 18:14 | CT ---
EXAMINATION TYPE: CT brain wo con DATE OF EXAM: 01/30/2017 COMPARISON: 01/27/2017 HISTORY: 71-year-old male Patient poor historian. Altered mental status. TECHNIQUE: Examination was done in axial plane without intravenous contrast. Coronal and sagittal r econstructions performed. CT DLP: 802.5 mGycm Automated exposure control for dose reduction was used. FINDINGS: There is no evidence of acute intracranial hemorrhage, acute ischemic changes, mass, mass-effect, or extra-axial fluid collection. There is no effacement of cerebral sulci or basal subarachnoid cister ns. There is no hydrocephalus. There is no midline shift. Dawn-white matter distinction is preserv ed. Mild patchy white matter hypodensities in both cerebral hemispheres. Paranasal sinuses and mastoid air cells are well pneumatized. IMPRESSION: No acute intracranial abnormality seen. Mild changes of chronic small vessel ischemic disease.
--- NOTE | 2017-01-30 18:30 | CT ---
EXAMINATION TYPE: CT soft tissue neck wo con DATE OF EXAM: 01/30/2017 COMPARISON: NONE HISTORY: 71-year-old male Patient poor historian, altered mental status, rule out neoplasm. TECHNIQUE: Contiguous axial scanning of the soft tissues of the neck without IV contrast. Coronal and sagittal reconstructions performed. CT DLP: 210.7 mGycm Automated exposure control for dose reduction was used. FINDINGS: Visualized paranasal sinuses, orbits and globes, and mastoid air cells show no gross abnormality. Lack of IV contrast limits assessment of the mucosal space. Within this limitation, nasopharynx appears grossly clear. The patient's head is tilted towards the right. This may account for the asymmetric soft tissue promi nence in the region of the right tubal and lingual tonsils, axial image 56. Otherwise, the oropharynx is clear. The prevertebral soft tissues and epiglottis are normal. The glottic and subglottic structures as well as the tracheal column are clear. The lungs will be reported separately. Noncontrast appearance of the thyroid gland shows no gross abnormality. Submandibular glands are josias sly unremarkable. Parotid glands are atrophic. No cervical lymphadenopathy or neck mass seen. Facet arthropathy within the cervical spine with trace grade 1 anterolisthesis at C4-C5, C5-C6 and C6 /C7. IMPRESSION: 1. DECREASED SENSITIVITY DUE TO LACK OF IV CONTRAST. SOFT TISSUE THICKENING IN THE REGION OF THE RIGH T TUBAL AND PALATINE TONSILS, AXIAL IMAGE 56. THIS ASYMMETRY MAY BE SECONDARY TO PATIENT'S RIGHTWARD HEAD TILT CREATING SOFT TISSUE REDUNDANCY. IF THERE IS CONCERN FOR A MUCOSAL LESION, DIRECT VISUALIZA TION CAN BE PERFORMED. 2. NO ABNORMAL LYMPHADENOPATHY OR OTHERWISE ANY SUSPICIOUS NECK MASS SEEN.
--- NOTE | 2017-01-30 18:44 | CT ---
EXAMINATION TYPE: CT ChestAbdPelvis wo con DATE OF EXAM: 01/30/2017 COMPARISON: NONE HISTORY: 71-year-old male patient poor historian, altered mental status, rule out neoplasm. TECHNIQUE: Contiguous axial scanning of the chest, abdomen, and pelvis without IV contrast. Coronal a nd sagittal reconstructions performed. CT DLP: 418.3 mGycm Automated exposure control for dose reduction was used. FINDINGS: CHEST: The heart is normal size without pericardial effusion. Coronary vessel calcifications are present in remarkable for coronary artery disease. There is conventional origin is a branching anatomy with a minimal arch vessel calcifications. There is a borderline aneurysm of the upper descending thoracic aorta at 3.0 cm. Ectatic distal descending thoracic aorta at 2.8 cm. No thoracic lymphadenopathy by CT size criteria. Borderline to mildly enlarged caliber to the main right and left pulmonary arteries are 2.6 and 2.5 c m, respectively, suggesting underlying pulmonary arterial hypertension. 8 mm pulmonary nodule peripheral right lower lobe axial image 57. Mild diffuse bronchial wall thickening and moderate centrilobular emphysema. 3 mm nodularity peripheral left lower lobe axial image 40. 5 mm pulmonary nodule peripheral left lower lobe axial image 43. Some stringy scar or atelectasis at the inferior lingula. No consolidation or pleural effusion. ABDOMEN: Postsurgical changes at the GE junction. Noncontrast appearance of the liver, gallbladder, adrenal glands, kidneys, spleen, and pancreas show no gross abnormality. No dilated small bowel, free fluid, or free air. Small fat-containing left periumbilical hernia. Normal appendix. Annular narrowing along the ascending colon, axial image 79 most suggestive of focal peristalsis mackenzie cially given a similar area seen on axial image 83 in the mid transverse colon. Proximal sigmoid diverticulosis without pericolonic inflammatory change. Mild atherosclerotic calcifications within the infrarenal abdominal aorta with fusiform aneurysm of 3 .0 cm. No mesenteric or retroperitoneal lymphadenopathy seen. Pelvis: Lira catheter is present but the bladder is urine distended. Intraluminal nondependent bladder air i s noted. No abnormal fluid collection in the pelvis or suspicious pelvic lymphadenopathy clearly iden tified. Prostate gland measures 4.5 cm wide. Bones: Degenerative changes of the hips. Additional degenerative changes lower lumbar spine. No osseous dest ructive process. IMPRESSION: 1. COPD WITH MODERATE EMPHYSEMA AND PROBABLE UNDERLYING PULMONARY ARTERIAL HYPERTENSION. 2. A FEW PULMONARY NODULES ARE PRESENT MEASURING UP TO 5 MM. HOWEVER, THERE IS A DOMINANT 8 MM SUBPLE URAL NODULE IN THE RIGHT LOWER LOBE. RECOMMEND FOLLOW-UP CT IN 6-12 MONTHS AND THEN AT 18-24 MONTHS T O EXCLUDE EARLY NEOPLASM. THE OTHER PULMONARY NODULES CAN ALSO BE REASSESSED AT THOSE TIMES. 3. ECTATIC DESCENDING THORACIC AORTA AND MILD AAA AT 3.0 CM. 4. CORRELATE FOR APPROPRIATE FUNCTIONING OF THE PATIENT'S LIRA CATHETER. A LIRA CATHETER IS PRESENT BUT THE BLADDER REMAINS URINE DISTENDED. INTRALUMINAL BLADDER AIR LIKELY DUE TO THE INSTRUMENTATION. 5. PROXIMAL SIGMOID DIVERTICULOSIS WITHOUT ACUTE DIVERTICULITIS. THERE ARE FEW AREAS OF ANNULAR NARRO WING IN THE COLON FELT TO RELATE TO A FOCAL PERISTALTIC CONTRACTIONS. CONSIDER SCREENING COLONOSCOPY IF NOT ALREADY PERFORMED.
[2017-01-30 18:59] LABS: Anion Gap 8 mmol/L; Blood Urea Nitrogen 11 mg/dL (9-20); Calcium 8.6 mg/dL (8.4-10.2); Carbon Dioxide 28 mmol/L (22-30); Chloride 90 mmol/L (98-107); Glucose 104 mg/dL (74-99); Non-African American GFR(MDRD) >60 (>60 ml/min/1.73 sqM); Potassium 3.7 mmol/L (3.5-5.1); Sodium 126 mmol/L (137-145)
[2017-01-30] MEDS ORDERED: FUROSEMIDE 10 MG/ML 2 ML VIAL IV ONE (19:13)
[2017-01-30] MEDS: ALPRAZolam 0.25 MG TAB PO PRN (20:10)
[2017-01-30] MEDS: ASPIRIN 81 MG PO SCH ×2 (20:17→20:55)
[2017-01-30] MEDS: ATORVASTATIN 20 MG TAB PO SCH ×2 (20:17→20:55)
[2017-01-30] MEDS: SENNOSIDES 8.6 MG TAB PO SCH ×2 (20:18→20:55)
[2017-01-30] MEDS: ENALAPRILAT 1.25 MG/ML 1 ML VIAL IVP PRN (20:54)
[2017-01-31 00:28] LABS: Anion Gap 10 mmol/L; Blood Urea Nitrogen 11 mg/dL (9-20); Calcium 8.9 mg/dL (8.4-10.2); Carbon Dioxide 29 mmol/L (22-30); Chloride 87 mmol/L (98-107); Glucose 122 mg/dL (74-99); Non-African American GFR(MDRD) >60 (>60 ml/min/1.73 sqM); Potassium 3.6 mmol/L (3.5-5.1); Sodium 126 mmol/L (137-145)
[2017-01-31] MEDS: ENALAPRILAT 1.25 MG/ML 1 ML VIAL IVP PRN ×2 (03:08→23:27)
[2017-01-31 05:28] LABS: Anion Gap 14 mmol/L; Blood Urea Nitrogen 13 mg/dL (9-20); Calcium 9.1 mg/dL (8.4-10.2); Carbon Dioxide 26 mmol/L (22-30); Chloride 87 mmol/L (98-107); Glucose 120 mg/dL (74-99); Non-African American GFR(MDRD) >60 (>60 ml/min/1.73 sqM); Potassium 3.7 mmol/L (3.5-5.1); Sodium 127 mmol/L (137-145)
[2017-01-31] MEDS: hydrALAZINE HCL 20 MG/ML 1 ML VIAL IVP PRN (05:38)
[2017-01-31] MEDS ORDERED: POTASSIUM CHLORIDE ORAL LIQUID 40 MEQ/30 ML CUP NG-TUBE SCH (06:00)
[2017-01-31] MEDS: FLUoxetine HCL 20 MG CAP PO SCH ×2 (08:08→20:15)
[2017-01-31] MEDS: HEPARIN SODIUM,PORCINE 5,000 UNIT/ML 1 ML VIAL SQ SCH ×2 (08:08→20:15)
[2017-01-31] MEDS: PANTOPRAZOLE 40 MG/10 ML VIAL IVP SCH (08:08)
[2017-01-31] MEDS: ATENOLOL 50 MG TAB PO SCH (08:08)
[2017-01-31] MEDS: CHOLECALCIFEROL 1,000 UNIT TAB PO SCH (08:08)
[2017-01-31] MEDS: LISINOPRIL 20 MG TAB PO SCH (08:08)
--- NOTE | 2017-01-31 09:36 | P.PN ---
Subjective Progress Note Date: 01/31/17 This is a 71-year-old male patient came into the emergency department yesterday because of generalized weakness over the past couple of days. The patient was also somnolent and he was unable to stand up due to his extensive weakness. His condition was progressively getting worse and yesterday felt really bad. No fever. No chills. In the burst department the patient was found to have severe hypochloremic hyponatremia with a sodium level of 111. His chloride level was at 78. His BUN was 13 with a creatinine of 0.6. Glucose was 104. His lactic acid level was at 1.1. His urine osmolality was 407. The serum osmolality was at 407 and a urine sodium was at 45. Patient's urine toxin was positive for benzodiazepines. The patient was recently switched to a antihypertensive medication that includes hydrochlorothiazide. He is not a beer drinker. No history of of malignancy. No history of any other medication change recently. He is on Prozac 20 mg by mouth daily. Chest x-ray showed COPD otherwise clear. CAT scan of the brain was also negative. No history of any hypothyroidism. No diarrhea. No nausea. No vomiting. No hematemesis. Based on this and based on his symptomatically hyponatremia the patient was started on hypertonic 3% saline at the rate of 20 mL an hour and his current sodium level is up 115. He is still very tired. He is requesting to sleep at all times. The patient is known to have multiple other medical problems including coronary artery disease with a previous coronary stent insertion, hypertension, previous myocardial infarction, and COPD. The patient was seen again today 01/29/2017 in follow-up in the intensive care unit. He is currently awake and alert in no acute distress. He continues to be slow to respond. He also needs constant reminding of where he has and the details of his current condition. His current sodium is 120. His current receiving 0.9 normal saline at 50 MLS per hour. He has remained hemodynamically stable. He's been afebrile. Maintaining good O2 saturations in the high 90s on 2 L/m per nasal cannula. Urine output has been adequate. Creatinine 0.60. On 01/30/2017 the patient remains in intensive care unit. He has been slow improvement in his sodium level is up to 126. He is currently off all infusion the patient is receiving no IV fluids and his IV is to Hep-Lock. He is on fluid restrictions. He is gradually improving. He is more interactive on today 's evaluation. No nausea. No vomiting. No diarrhea. No abdominal pain. Adequate urine output. The rest of the electrodes are all within normal limits. His potassium has been replaced. No other significant events overnight. Seems to get stronger and possibly will be able to ambulate today. On 01/31/2017 the patient remains in intensive care unit. He was briefly released out of the ICU however he was brought back as there was concern about his ongoing neurological status. The patient is felt not to be recovering appropriately despite the slow correction of the sodium level. His sodium level has been corrected around 8 mEq over 24 hours. As the correction was being done and the patient continued to be weak and lethargic and furthermore no appropriate neurologic recovery was noted. This morning he remains on and off confused , slow in answering questions, twitching at times, profoundly weak to the point where he was unable to stand up and bear any weight. Headaches. No seizure activity noted. No tonic postures. No loss of consciousness. He is able to speak and his speech is delayed and not appropriate to the clinical setting that he is in. Based on all this, I repeated the CAT scan of the head and it showed no acute intracranial abnormalities. There was some mild changes consistent with chronic small vessel ischemic disease. The patient also had a CAT scan of the neck that showed soft tissue thickening in the region of the right palatine tonsils and this was thought to be positional in nature. No significant lymphadenopathy in the neck or suspicious neck masses. CAT scan of the chest abdomen and pelvis was also done and it showed COPD and few pulmonary nodules are present up to 5 mm in size however these were nonspecific and possibility of neoplasm was felt to be really low in follow-up CAT scans admitted recommended. The patient had an ectatic descending aorta with a mild abdominal aortic aneurysm measuring 3.0 cm in size. The patient was also found to have some proximal sigmoid diverticulosis without evidence of diverticulitis. Neurology was consulted. EEG is to follow. MRI of the brain is to follow. The patient's oral intake is minimal at this point. He is on no IV fluids. Objective - Vital Signs Vital signs: Vital Signs Temp 97.8 F 01/31/17 08:00 Pulse 106 H 01/31/17 08:00 Resp 17 01/31/17 08:00 BP 168/94 01/31/17 08:00 Pulse Ox 99 01/31/17 08:00 Intake & Output 01/30/17 01/31/17 01/31/17 18:59 06:59 18:59 Intake Total 0 0 Output Total 1425 1200 100 Balance -1425 -1200 -100 Weight 57 kg Intake: Oral 0 0 Output: Urine 1425 1200 100 Other: Voiding Method Indwelling Catheter Indwelling Catheter - Exam The patient appeared well nourished and normally developed. Vital signs as documented. Head exam is unremarkable. No scleral icterus or corneal arcus noted. Neck is without jugular venous distension, thyromegaly, or carotid bruits. Carotid upstrokes are brisk bilaterally. Lungs are clear to auscultation and percussion. Cardiac exam reveals the PMI to be normally sized and situated. Rhythm is regular. First and second heart sounds normal. No murmurs, rubs or gallops. Abdominal exam reveals normal bowel sounds, no masses , no organomegaly and no aortic enlargement. Extremities are nonedematous and both femoral and pedal pulses are normal. Neurologically the patient's exam is nonfocal however he is weak and he is unable to ambulate yet. Motor function is diminished in all 4 extremities symmetrically. No cranial nerve deficits. No facial asymmetry. He has a delayed speech. Twitching in the arms. Reflexes are low +1 symmetrical on 4 extremities. No clonus. Adequate swallow. Adequate gag. Cranial nerves are intact. Pupils are equal and symmetrical and reactive to light. Skin is negative for any open wounds or sores or ulceration or cellulitis. - Labs CBC & Chem 7: 01/30/17 02:59 01/31/17 04:07 Labs: Abnormal Lab Results - Last 24 Hours (Table) 01/30/17 01/30/17 01/30/17 Range/Units 11:07 14:04 17:07 Sodium 126 L 127 L (137-145) mmol/L Chloride (98-107) mmol/L Creatinine (0.66-1.25) mg/dL Glucose (74-99) mg/dL POC Glucose (mg/dL) 104 H (75-99) mg/dL 01/30/17 01/31/17 01/31/17 Range/Units 18:36 00:00 04:07 Sodium 126 L 126 L 127 L (137-145) mmol/L Chloride 90 L 87 L 87 L (98-107) mmol/L Creatinine 0.58 L 0.60 L 0.60 L (0.66-1.25) mg/dL Glucose 104 H 122 H 120 H (74-99) mg/dL POC Glucose (mg/dL) (75-99) mg/dL Assessment and Plan Plan: Assessment 1 symptomatic hyponatremia, possibly drug induced secondary to intake of hydrochlorothiazide. The patient had a slow correction of the sodium level in the order of 8 mEq over 24 hours. He is up to 126 today. Despite that he is having ongoing neurological disturbances with diminished level of consciousness , motor weakness, tremors and delayed response and psychomotor slowing. One consideration is demyelolysis related to sodium correction however this is a remote possibility based on the appropriate sodium correction that was done on this patient. The patient's sodium was being monitored very closely. He remains off hydrochlorothiazide. The first on the case. Neurology is also on the case regarding the ongoing neurological deficits. MRI of the brain is pending. EEG is pending. 2 profound generalized weakness secondary to above, without any focal neurological deficit at this point. Cranial nerves seem to be intact. Mental status is waxing and waning as mentioned. Neurology has been consulted. 3 coronary artery disease with previous coronary intervention and stenting 4 hypertension, patient is off hydrochlorothiazide and the lisinopril was restarted. 5 COPD 6 hyperlipidemia Plan Will monitor this patient's neurological function. We'll monitor the sodium level. EEG today. MRI of the brain. Neurology consultation. Monitor blood pressure. The patient is currently on oral Tenormin and oral Zestril and IV hydralazine as needed 20 mg every 4 hours. We'll keep in ICU for 24 hours. We' ll follow up this patient along with aggressive the consultants.
--- NOTE | 2017-01-31 09:55 | P.PN ---
Subjective Patient is seen in follow-up for hyponatremia. Patient was recently started on a thiazide diuretic which is currently held. Sodium level was 111 on admission on January 27 at 8 PM. He initially required 3% saline but has been off all IV fluids for over 24 hours now. Patient has a Romero catheter in place and is nonoliguric. Oral intake is poor. his blood pressure was running high yesterday and dose of lisinopril was increased and was also started on oral Lasix. Patient was transferred out of the intensive care unit but was noted to be slow to respond and was also noted to have some tremors. He was subsequently transferred back to the intensive care unit. He is currently resting in bed. He is able to move all his extremities. He is somewhat confused and remains slow to respond. Vital signs are stable. General: The patient appeared well nourished and normally developed. HEENT: Head exam is unremarkable. Neck is without jugular venous distension. LUNGS: Lungs are clear to auscultation and percussion. Breath sounds decreased. HEART: Rate and Rhythm are regular. First and second heart sounds normal. No murmurs, rubs or gallops. ABDOMEN: Abdominal exam reveals normal bowel sounds. Non-tender and non- distended. No evidence of peritonitis. EXTREMITITES: No clubbing, cyanosis, or edema. Right upper extremity tremor noted. Able to lift all 4 extremities. Objective - Vital Signs Vital signs: Vital Signs Temp 97.8 F 01/31/17 08:00 Pulse 106 H 01/31/17 08:00 Resp 17 01/31/17 08:00 BP 168/94 01/31/17 08:00 Pulse Ox 99 01/31/17 08:00 Intake & Output 01/30/17 01/31/17 01/31/17 18:59 06:59 18:59 Intake Total 0 0 Output Total 1425 1200 100 Balance -1425 -1200 -100 Weight 57 kg Intake: Oral 0 0 Output: Urine 1425 1200 100 Other: Voiding Method Indwelling Catheter Indwelling Catheter - Labs CBC & Chem 7: 01/30/17 02:59 01/31/17 04:07 Labs: Abnormal Lab Results - Last 24 Hours (Table) 01/30/17 01/30/17 01/30/17 Range/Units 11:07 14:04 17:07 Sodium 126 L 127 L (137-145) mmol/L Chloride (98-107) mmol/L Creatinine (0.66-1.25) mg/dL Glucose (74-99) mg/dL POC Glucose (mg/dL) 104 H (75-99) mg/dL 01/30/17 01/31/17 01/31/17 Range/Units 18:36 00:00 04:07 Sodium 126 L 126 L 127 L (137-145) mmol/L Chloride 90 L 87 L 87 L (98-107) mmol/L Creatinine 0.58 L 0.60 L 0.60 L (0.66-1.25) mg/dL Glucose 104 H 122 H 120 H (74-99) mg/dL POC Glucose (mg/dL) (75-99) mg/dL Assessment and Plan Plan: Assessment: #1. Hyponatremia. Currently euvolemic in nature. Etiology is use of thiazide diuretic as well as urinary retention. Patient was taking Prozac which can induce SIADH. Low uric acid also suggestive of SIADH. Sodium level was 111 on admission and has been correcting at a gradual pace. it is up to 127 this morning. He will need screenings for underlying malignancy as an outpatient. No evidence of hypothyroidism. #2. Altered mental status secondary to hyponatremia. His mentation had improved but was noted to have tremors and slow to respond yesterday. Neurology following. EEG and MRI pending. #3. Hypokalemia secondary to diuretics. Status post replacement. Magnesium replete. #4. Benign hypertension. Blood pressures on the higher side - better today. Dose of lisinopril was increased yesterday. Plan: Lasix 40 mg IV once now. Check sodium level at 1 PM today. Encouraged oral intake as able to tolerate- added ensure 3 times a day. Maintain 1.5 L fluid restriction. Avoid rapid correction off sodium level. Recheck urine sodium and urine osmolality. May need to use an alternative to Prozac.
[2017-01-31] MEDS ORDERED: FUROSEMIDE 10 MG/ML 4 ML VIAL IV STA ×2 (10:09→20:12)
--- NOTE | 2017-01-31 10:47 | P.CNNES ---
History of Present Illness Consult date: 01/30/17 Reason for Consult: Patient with altered mental status and hyponatremia. History of Present Illness: This patient is a 71-year-old right-handed white male who was admitted through the emergency room on 01/27/2017 for evaluation of generalized weakness and fatigue. According to the who provided the medical history and the intensive care unit today the patient had been complaining of generalized weakness for a few days prior to his admission. He was recently seen by his primary care physician who noted that he had evidence of essential hypertension. He was started on antihypertensive medications about 2 weeks ago. His blood pressures had remained fairly elevated. The states that he was feeling very weak and hard to perform his activities of daily living at home as he normally would. She decided to bring him to the emergency room for further evaluation. He was seen in the ER at [facility] on 02/2017. He was evaluated by who ordered some laboratory testing as well as a computed tomography scan of the brain. A CAT scan of the brain was negative for any acute changes. His laboratory testing revealed his serum sodium to be 111. This was severe hyponatremia. He was admitted to the intensive care unit for further monitoring on 01/27/2017. Patient was seen by nephrology. He was started on 3% hypertonic saline at a rate of 20 mL per hour. His serum sodium level today was 126. He was transferred out of the intensive care unit this morning to the medical floor. According to the he apparently became unresponsive and was hard to arouse after transferred to the medical floor. He was transferred back into the intensive care unit where he is evaluated today. The patient remains lethargic but easily arousable. He is slow to answer all questioning today in the ICU. He is able to recognize his family members. He complains of generalized fatigue. The patient has been seen by multiple specialists including nephrology. It is felt his hyponatremia is being corrected appropriately at this time. As of today there is been a 8 mEq correction of his hyponatremia over 24 hours. According to his he has some twitching on the medical floor earlier this morning prior to returning to the ICU. Following this he became unresponsive. We have recommended a routine EEG to be done to rule out any possibility of underlying seizure disorder. The patient is resting comfortably now in the intensive care unit. He does follow simple commands. According to his earlier this morning prior to being transferred out of the ICU he appeared to be more alert and awake. Due to his episode of unresponsiveness he was now transferred back into the ICU for close monitoring. Nephrology is following the patient closely. They feel his severe hyponatremia may be secondary to diuretic use. Pulmonary medicine is also following the patient very closely. The patient does have a history of underlying depression for which she has been using Prozac for many years. There is some concern that Prozac may induce a SIADH type clinical picture. We will await further recommendations from nephrology. The patient has no previous history of seizures or head injury. 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 Apparently he has been active prior to his recent hospitalization. He does follow some simple commands but does seem to be withdrawn and slow to respond. Neurology is now been consulted for further evaluation and recommendations. Review of Systems Constitutional: Denies chills, Denies fever Eyes: denies blurred vision, denies pain Ears, nose, mouth and throat: Denies headache, Denies sore throat Cardiovascular: Denies chest pain, Denies shortness of breath Respiratory: Denies cough Gastrointestinal: Denies abdominal pain, Denies diarrhea, Denies nausea, Denies vomiting Musculoskeletal: Denies myalgias Integumentary: Denies pruritus, Denies rash Neurological: Reports change in mentation, Reports confusion, Reports memory loss, Denies numbness, Denies weakness Psychiatric: Reports difficulty concentrating, Reports disorientation, Denies anxiety, Denies depression Endocrine: Denies fatigue, Denies weight change Past Medical History Past Medical History: COPD, Diabetes Mellitus, Hypertension, Myocardial Infarction (ID), Musculoskeletal Disorder, Osteoarthritis (OA) Additional Past Medical History / Comment(s): Coronary artery disease, previous myocardial infarction, previous coronary stent, osteoarthritis, chronic back pain, hypertension, anxiety/depression, PAD. Last Myocardial Infarction Date:: 2003 History of Any Multi-Drug Resistant Organisms: None Reported Past Surgical History: Heart Catheterization With Stent Additional Past Surgical History / Comment(s): Lumbar spinal fusion Date of Last Stent Placement:: 2003 Past Psychological History: No Psychological Hx Reported Smoking Status: Former smoker Past Alcohol Use History: None Reported Additional Past Alcohol Use History / Comment(s): Patient was a smoker 2 packs per day since he was in his teens and quit 25 years ago. He does have history of heavy alcohol abuse but quit many years ago. Past Drug Use History: None Reported - Past Family History Father Additional Family Medical History / Comment(s): Father in his 80s with history of diabetes. Mother Additional Family Medical History / Comment(s): Patient's mother from cancer unknown to him. He did not have contact with her. Brother(s) Additional Family Medical History / Comment(s): Patient has one brother that from drowning. Patient had 1 sister that was adopted out and he does not know her history. Patient has 2 daughters no major medical problems. Medications and Allergies Home Medications Medication Instructions Recorded Confirmed Type ALPRAZolam [Xanax] 0.25 mg PO DAILY 01/27/17 01/27/17 History ALPRAZolam [Xanax] 0.25 mg PO HS PRN 01/27/17 01/27/17 History Aspirin EC [Ecotrin Low Dose] 162 mg PO HS 01/27/17 01/27/17 History Atenolol [Tenormin] 50 mg PO DAILY 01/27/17 01/27/17 History Atorvastatin [Lipitor] 20 mg PO HS 01/27/17 01/27/17 History Cholecalciferol [Vitamin D3] 1,000 unit PO DAILY 01/27/17 01/27/17 History FLUoxetine HCL [PROzac] 20 mg PO BID 01/27/17 01/27/17 History Lisinopril-Hctz 10-12.5 mg 1 tab PO DAILY 01/27/17 01/27/17 History [Zestoretic 10-12.5] Zolpidem [Ambien] 10 mg PO HS PRN 01/27/17 01/27/17 History Allergies Allergy/AdvReac Type Severity Reaction Status Date / Time Sulfa (Sulfonamide Allergy Rash/Hives Verified 01/27/17 19:53 Antibiotics) Physical Examination - Vital Signs Vital Signs: Vital Signs Temp Pulse Pulse Resp BP BP BP 01/30/17 19:00 23 149/88 01/30/17 18:02 98.8 F 72 33 H 168/82 01/30/17 17:02 98.1 F 68 18 181/78 01/30/17 13:00 147/76 01/30/17 11:02 97.4 F L 68 18 181/81 182/88 01/30/17 09:00 73 20 169/85 01/30/17 08:00 98.2 F 78 22 154/76 01/30/17 07:00 72 14 173/93 01/30/17 06:00 63 18 166/81 01/30/17 05:00 64 22 159/81 01/30/17 04:00 98.2 F 67 20 159/81 01/30/17 03:00 67 24 127/70 01/30/17 02:00 58 L 15 153/81 01/30/17 01:00 64 15 164/85 01/30/17 00:00 98 F 69 23 168/78 01/29/17 23:00 67 19 140/73 01/29/17 22:00 72 19 142/70 01/29/17 21:00 78 18 127/61 01/29/17 20:00 72 20 153/76 Pulse Ox 01/30/17 19:00 96 01/30/17 18:02 98 01/30/17 17:02 94 L 01/30/17 13:00 01/30/17 11:02 98 01/30/17 09:00 100 01/30/17 08:00 99 01/30/17 07:00 100 01/30/17 06:00 99 01/30/17 05:00 100 01/30/17 04:00 99 01/30/17 03:00 98 01/30/17 02:00 100 01/30/17 01:00 97 01/30/17 00:00 97 01/29/17 23:00 97 01/29/17 22:00 97 01/29/17 21:00 95 01/29/17 20:00 100 Intake and Output 01/30/17 01/30/17 01/30/17 06:59 14:59 22:59 Intake Total 20 0 Output Total 835 950 515 Balance -814 -950 515 Intake: Oral 20 0 Output: Urine 835 950 515 Other: Voiding Method Indwelling Catheter Indwelling Catheter Indwelling Catheter # Voids 1 Weight 58.6 kg - Constitutional General appearance: average body habitus, cooperative - EENT EENT: PERRL, mucous membranes moist - Respiratory Respiratory: lungs clear, normal breath sounds - Cardiovascular Cardiovascular: regular rate, normal S1, normal S2 Extremities: no peripheral edema bilaterally - Gastrointestinal Gastrointestinal: normoactive bowel sounds - Integumentary Integumentary: normal - Neurologic Cranial nerve examination: PERRL, EOMI, VFF, V1/V2/V3 grossly intact, face symmetric, intact gag reflex, intact corneal reflex, normal palatal elevation Speech examination: intact Sensorimotor examination: intact Motor examination - right side: 3/5: biceps, triceps, wrist flexion, wrist extension, business communications instructor, hip flexors, knee extensors, dorsiflexion, toe extension (EHL) , plantarflexion Motor examination - left side: 3/5: biceps, triceps, wrist flexion, wrist extension, business communications instructor, hip flexors, knee extensors, dorsiflexion, toe extension (EHL) , plantarflexion Detailed sensory examination: intact Reflex and gait examination: intact Reflexes: 1+: ankle, bicep, knee, tricep - Musculoskeletal Musculoskeletal: no pain - Psychiatric Psychiatric: mood/affect appropriate, depressed, cooperative Results - Laboratory Findings CBC and BMP: 01/30/17 02:59 01/31/17 04:07 Abnormal Lab Findings: Abnormal Labs 01/27/17 01/27/17 01/27/17 19:31 20:00 20:00 WBC RBC Hgb Hct 38.2 L Neutrophils # Lymphocytes # 0.6 L Sodium 111 L* Potassium 2.9 L* Chloride 69 L* Creatinine Glucose 118 H POC Glucose (mg/dL) 123 H Osmolality Plasma Lactic Acid Gennaro Uric Acid Calcium Magnesium 1.5 L Total Bilirubin 1.5 H AST 134 H ALT 175 H Alkaline Phosphatase 137 H Total Protein Albumin TSH Free T4 Urine Ketones Urine Blood Urine RBC U Benzodiazepines Scrn 01/27/17 01/27/17 01/27/17 20:00 20:00 21:15 WBC RBC Hgb Hct Neutrophils # Lymphocytes # Sodium Potassium Chloride Creatinine Glucose POC Glucose (mg/dL) Osmolality 239 L* Plasma Lactic Acid Gennaro 2.5 H* Uric Acid Calcium Magnesium Total Bilirubin AST ALT Alkaline Phosphatase Total Protein Albumin TSH Free T4 Urine Ketones Urine Blood Urine RBC U Benzodiazepines Scrn Detected H 01/27/17 01/27/17 01/28/17 21:15 23:57 02:06 WBC RBC Hgb Hct Neutrophils # Lymphocytes # Sodium 112 L* Potassium Chloride Creatinine Glucose POC Glucose (mg/dL) 121 H Osmolality Plasma Lactic Acid Gennaro Uric Acid Calcium Magnesium Total Bilirubin AST ALT Alkaline Phosphatase Total Protein Albumin TSH Free T4 Urine Ketones 1+ H Urine Blood Moderate H Urine RBC 17 H U Benzodiazepines Scrn 01/28/17 01/28/17 01/28/17 02:06 05:19 05:19 WBC 12.7 H RBC 4.29 L Hgb Hct 38.1 L Neutrophils # 10.9 H Lymphocytes # 0.6 L Sodium 113 L* 115 L* Potassium 3.0 L* 3.4 L Chloride 78 L* 81 L Creatinine 0.60 L 0.50 L Glucose 104 H 109 H POC Glucose (mg/dL) Osmolality Plasma Lactic Acid Gennaro Uric Acid Calcium 8.0 L 7.9 L Magnesium Total Bilirubin AST 120 H ALT 159 H Alkaline Phosphatase Total Protein 5.9 L Albumin 3.4 L TSH Free T4 Urine Ketones Urine Blood Urine RBC U Benzodiazepines Scrn 01/28/17 01/28/17 01/28/17 09:27 13:28 17:32 WBC RBC Hgb Hct Neutrophils # Lymphocytes # Sodium 119 L* 117 L* 120 L* Potassium 3.3 L 3.3 L Chloride 82 L 83 L Creatinine 0.58 L Glucose 103 H 146 H POC Glucose (mg/dL) Osmolality Plasma Lactic Acid Gennaro Uric Acid Calcium 7.9 L 8.1 L Magnesium Total Bilirubin AST ALT Alkaline Phosphatase Total Protein Albumin TSH 0.206 L Free T4 2.30 H Urine Ketones Urine Blood Urine RBC U Benzodiazepines Scrn 01/28/17 01/29/17 01/29/17 20:33 01:06 04:08 WBC RBC Hgb Hct Neutrophils # Lymphocytes # Sodium 119 L* 119 L* 120 L* Potassium Chloride 88 L 89 L Creatinine 0.60 L 0.60 L Glucose 118 H 109 H POC Glucose (mg/dL) Osmolality Plasma Lactic Acid Gennaro Uric Acid Calcium 8.2 L 8.1 L Magnesium Total Bilirubin AST ALT Alkaline Phosphatase Total Protein Albumin TSH Free T4 Urine Ketones Urine Blood Urine RBC U Benzodiazepines Scrn 01/29/17 01/29/17 01/29/17 12:16 17:01 17:37 WBC RBC Hgb Hct Neutrophils # Lymphocytes # Sodium 122 L 124 L 125 L Potassium Chloride Creatinine Glucose POC Glucose (mg/dL) Osmolality Plasma Lactic Acid Gennaro Uric Acid 2.1 L Calcium Magnesium Total Bilirubin AST ALT Alkaline Phosphatase Total Protein Albumin TSH Free T4 Urine Ketones Urine Blood Urine RBC U Benzodiazepines Scrn 01/29/17 01/30/17 01/30/17 21:28 02:59 02:59 WBC RBC 3.97 L Hgb 11.9 L Hct 35.5 L Neutrophils # Lymphocytes # 0.8 L Sodium 126 L 126 L Potassium Chloride 92 L Creatinine 0.60 L Glucose POC Glucose (mg/dL) Osmolality Plasma Lactic Acid Gennaro Uric Acid Calcium 8.3 L Magnesium Total Bilirubin AST ALT Alkaline Phosphatase Total Protein Albumin TSH Free T4 Urine Ketones Urine Blood Urine RBC U Benzodiazepines Scrn 01/30/17 01/30/17 01/30/17 06:42 11:07 14:04 WBC RBC Hgb Hct Neutrophils # Lymphocytes # Sodium 126 L 126 L 127 L Potassium Chloride Creatinine Glucose POC Glucose (mg/dL) Osmolality Plasma Lactic Acid Gennaro Uric Acid Calcium Magnesium Total Bilirubin AST ALT Alkaline Phosphatase Total Protein Albumin TSH Free T4 Urine Ketones Urine Blood Urine RBC U Benzodiazepines Scrn 01/30/17 01/30/17 17:07 18:36 WBC RBC Hgb Hct Neutrophils # Lymphocytes # Sodium 126 L Potassium Chloride 90 L Creatinine 0.58 L Glucose 104 H POC Glucose (mg/dL) 104 H Osmolality Plasma Lactic Acid Gennaro Uric Acid Calcium Magnesium Total Bilirubin AST ALT Alkaline Phosphatase Total Protein Albumin TSH Free T4 Urine Ketones Urine Blood Urine RBC U Benzodiazepines Scrn Assessment and Plan (1) Hyponatremia Status: Acute Code(s): E87.1 - HYPO-OSMOLALITY AND HYPONATREMIA (2) Acute encephalopathy Status: Acute Code(s): G93.40 - ENCEPHALOPATHY, UNSPECIFIED (3) Generalized weakness Status: Acute Code(s): R53.1 - WEAKNESS (4) Essential hypertension Status: Acute Code(s): I10 - ESSENTIAL (PRIMARY) HYPERTENSION Plan: This patient is a 71-year-old right-handed white male who was initially admitted to [facility] on 01/27/2017 for evaluation of generalized weakness and fatigue. He was found to have evidence of profound hyponatremia with a serum sodium level of 111. He was started on a 3% hypertonic saline solution at a rate of 20 mL per hour and admitted to the intensive care unit. Patient showed slow improvement in his overall condition and was transferred out of the intensive care unit this morning to the medical floor. According to his he had a sudden episode of unresponsiveness on the medical floor and some twitching. He was transferred back into the intensive care unit today for close monitoring. The patient's serum sodium level today is 126. He does seem to arouse and answer questions appropriately but is very fatigued. He complains of generalized fatigue and malaise. His serum sodium as noted today is 126. Since his admission to Hospital there is been a 15 mEq improvement in his serum sodium level. He has been monitored closely for slow correction of his hyponatremia since his admission into the ICU. Nephrology in pulmonary medicine or following the patient very closely. His neurological examination reveals him to be slightly lethargic but arousable. He has generalized weakness. He appears to be slightly depressed. He has been treated for depression and has been taking Prozac for over 20 years. Nephrology is monitoring his serum sodium levels very closely. There is a possibility that Prozac may induce SIADH picture. We will await further recommendations from nephrology. Given the patient's generalized weakness and altered mentation we have recommended an MRI of the brain to further evaluate for any possibility of central pontine myelinolysis. We will also obtain routine EEG to rule out seizure disorder. His overall prognosis at this time remains guarded. We have discussed all of these findings in detail with the patient's at bedside. All of her questions were answered. She is aware of his guarded condition. We will continue close neurological follow-up for this patient in the intensive care unit. Time with Patient: Greater than 30
--- NOTE | 2017-01-31 17:07 | PN ---
PROGRESS NOTE INTERVAL HISTORY: Patient continued to be lethargic and was transferred to [facility], but was more lethargic and confused and brought back to the stepdown unit yesterday. They informed me over the phone that patient continued to be lethargic, still refusing diet and requires frequent orientation. The patient's blood pressure continued to be elevated due to refusal of medication and I started the patient on Vasotec IV push every 6 hours and hydralazine IV push every 4 hours with holding parameters. PHYSICAL EXAM: VITAL SIGNS: Blood pressure currently improved with IV medication due to refusal of medication. The rest of vital signs were within normal limits. GENERAL: Lethargic and confused. HEART: Normal S1, S2. LUNGS: Diminished bilaterally. ABDOMEN: Soft. No tenderness. Bowel sounds soft in all four quadrants. LOWER EXTREMITY: No edema. PSYCH: As above. IMAGING AND LABS: Reviewed this morning, which showed stable hyponatremia around 126/127. The rest of his chemistry within acceptable range. CT of the brain reviewed and negative for any new finding. CT abdomen and pelvis and chest reviewed. ASSESSMENT AND PLAN: 1. Altered mental status, which was felt to be related at the beginning to his profound hyponatremia, severe malnutrition, and due to lack of improvement. The patient carries high risk of possibly demyelination and neurology consult was obtained who recommended MRI of the brain and possibly EEG to be done. We will follow up with neurology's recommendations. Plan discussed with regenerator operator at the bedside and we will update the family upon arrival. requested the patient to be FULL CODE at this point. 2. Generalized weakness with management as above. 3. Hyponatremia seems to be stable. Patient will be continued on Lasix. Discussed with Nephrology. 4. Severe protein calorie malnutrition due to refusing oral intake with avoidance nutrition based on clinical progress. 5. Uncontrolled hypertension. Patient's blood pressure became under better control after starting Vasotec every 6 hours and Hydralazine every 4 hours with holding parameters. I discussed with the nursing staff and will continue with current recommendation. 6. Prognosis remains guarded. MMODL / GISELLEN: [id number] /
[2017-01-31] MEDS ORDERED: ZOLPIDEM 5 MG TAB PO PRN (18:41)
--- NOTE | 2017-01-31 18:52 | EEG ---
ELECTROENCEPHALOGRAM REPORT REFERRING PHYSICIAN: Dr. López. CONSULTING/INTERPRETING PHYSICIAN: Dr. Dom Metcalf MD. DATE OF EE01/31/2017. ELECTROENCEPHALOGRAPHIC EXAMINATION REPORT: INDICATION FOR EXAMINATION: This patient is a 71-year-old male being evaluated for altered mental status and severe hyponatremia. The patient also developed facial twitching with episode of unresponsiveness. AGE: 71. EEG FINDINGS: A routine 21 channel awake digital EEG recording was accomplished utilizing the 10-20 international system with bipolar and referential montages. The background activity in the most alert resting state consists of a low to medium amplitude, fairly well developed and well sustained 7-8 hertz activity over the posterior head regions. This posterior rhythm attenuates to eye opening. There is a small amount of low amplitude 18-20 hertz beta activity seen maximally over the anterior head regions. Muscle and movement artifact was observed on a few occasions during the tracing. Hyperventilation was not performed. Photic stimulation at flash frequencies of 2-30 hertz produced a minimal occipital driving response. No epileptiform discharges were seen. IMPRESSION: This EEG is within normal limits for the patient's age. The EEG failed to reveal any focal, lateralized, or epileptiform abnormalities. Clinical correlation is recommended. MMODL / IJN: [id number] /
[2017-01-31] MEDS: SENNOSIDES 8.6 MG TAB PO SCH (20:15)
[2017-01-31] MEDS: ASPIRIN 81 MG PO SCH (20:15)
[2017-01-31] MEDS: ATORVASTATIN 20 MG TAB PO SCH (20:15)
[2017-02-01] MEDS: hydrALAZINE HCL 20 MG/ML 1 ML VIAL IVP PRN (00:11)
--- NOTE | 2017-02-01 01:43 | CT ---
EXAMINATION TYPE: CT brain wo con DATE OF EXAM: 02/01/2017 COMPARISON: 01/30/2017 HISTORY: AMS CT DLP: 1098.80 mGycm Automated exposure control for dose reduction was used. FINDINGS: There is minimal hypodensity in the periventricular white matter. There is no mass effect nor midline shift. There is no sign of intracranial hemorrhage. There is no sign of cortical infarct. Calvarium is intact. IMPRESSION: MINIMAL SMALL VESSEL ISCHEMIA. NO ACUTE INTRACRANIAL ABNORMALITY. NO CHANGE.
[2017-02-01] MEDS ORDERED: SODIUM CHLORIDE 0.9% 250 ML IV ONE ×2 (01:48→02:39)
[2017-02-01] MEDS ORDERED: hydrALAZINE HCL 20 MG/ML 1 ML VIAL IVP PRN (01:48)
--- NOTE | 2017-02-01 02:11 | P.PN ---
Subjective Progress Note Date: 01/31/17 This patient is a 71-year-old male who is being evaluated in the intensive care unit for generalized weakness and hyponatremia. The patient continues to have generalized weakness in the intensive care unit. His serum sodium today is 127. Nephrology is monitoring is condition closely in the ICU. We have recommended a EEG to be done today as well as a MRI of the brain for further evaluation of the brainstem region to rule out possibility of central pontine myelinolysis. The patient was able to complete his EEG today. The EEG was reviewed and is essentially normal for his age. There was no evidence of any epileptiform discharges. He has had some occasional twitching involving the left side of his face since coming back into the intensive care unit. Today he is more awake and alert and is answering questions. Apparently his mental status continues to wax and wane. We will await the results of his MRI of the brain for further evaluation and to rule out possibility of central pontine myelinolysis. Today in the ICU he does seem to be more awake and alert. We will continue close neurological follow-up with this patient during this admission. Objective - Vital Signs Vital signs: Vital Signs Temp 98.4 F 01/31/17 12:00 Pulse 75 01/31/17 13:00 Resp 19 01/31/17 13:00 BP 157/85 01/31/17 13:00 Pulse Ox 95 01/31/17 13:00 Intake & Output 01/30/17 01/31/17 01/31/17 18:59 06:59 18:59 Intake Total 0 0 Output Total 1425 1200 625 Balance -1425 -1200 -625 Weight 57 kg Intake: Oral 0 0 Output: Urine 1425 1200 625 Other: Voiding Method Indwelling Catheter Indwelling Catheter Indwelling Catheter - Exam Physical examination: PHYSICAL EXAMINATION: Patient is resting comfortably in bed. VITAL SIGNS: Blood pressure is [153/71]. Heart rate is [76]. Respiration is [22] . Temperature is [97.3]. HEENT: Head is atraumatic, neck is supple, there were no carotid bruits. CHEST: Lungs are clear to auscultation and percussion. CARDIAC: S1, S2 normal rate and rhythm. There is no murmur. ABDOMEN: Soft and nontender. Bowel sounds are present. EXTREMITIES: There is no pedal edema. Peripheral pulses are present. Neurological examination: Patient's neurological examination is unchanged from yesterday. - EENT Eyes: Present: anicteric sclerae - Labs CBC & Chem 7: 01/30/17 02:59 01/31/17 19:01 Labs: Abnormal Lab Results - Last 24 Hours (Table) 01/30/17 01/30/17 01/31/17 Range/Units 17:07 18:36 00:00 Sodium 126 L 126 L (137-145) mmol/L Chloride 90 L 87 L (98-107) mmol/L Creatinine 0.58 L 0.60 L (0.66-1.25) mg/dL Glucose 104 H 122 H (74-99) mg/dL POC Glucose (mg/dL) 104 H (75-99) mg/dL 01/31/17 01/31/17 Range/Units 04:07 13:25 Sodium 127 L 127 L (137-145) mmol/L Chloride 87 L (98-107) mmol/L Creatinine 0.60 L (0.66-1.25) mg/dL Glucose 120 H (74-99) mg/dL POC Glucose (mg/dL) (75-99) mg/dL Assessment and Plan (1) Hyponatremia Status: Acute Code(s): E87.1 - HYPO-OSMOLALITY AND HYPONATREMIA (2) Acute encephalopathy Status: Acute Code(s): G93.40 - ENCEPHALOPATHY, UNSPECIFIED (3) Generalized weakness Status: Acute Code(s): R53.1 - WEAKNESS (4) Essential hypertension Status: Acute Code(s): I10 - ESSENTIAL (PRIMARY) HYPERTENSION Plan: This patient is a 71-year-old right-handed white male who was initially admitted to [facility] on 01/27/2017 for evaluation of generalized weakness and fatigue. He was found to have evidence of profound hyponatremia with a serum sodium level of 111. He was started on a 3% hypertonic saline solution at a rate of 20 mL per hour and admitted to the intensive care unit. Patient showed slow improvement in his overall condition and was transferred out of the intensive care unit this morning to the medical floor. According to his he had a sudden episode of unresponsiveness on the medical floor and some twitching. He was transferred back into the intensive care unit today for close monitoring. The patient's serum sodium level today is 126. He does seem to arouse and answer questions appropriately but is very fatigued. He complains of generalized fatigue and malaise. His serum sodium as noted today is 126. Since his admission to Hospital there is been a 15 mEq improvement in his serum sodium level. He has been monitored closely for slow correction of his hyponatremia since his admission into the ICU. Nephrology in pulmonary medicine or following the patient very closely. His neurological examination reveals him to be slightly lethargic but arousable. He has generalized weakness. He appears to be slightly depressed. He has been treated for depression and has been taking Prozac for over 20 years. Nephrology is monitoring his serum sodium levels very closely. There is a possibility that Prozac may induce SIADH picture. We will await further recommendations from nephrology. Given the patient's generalized weakness and altered mentation we have recommended an MRI of the brain to further evaluate for any possibility of central pontine myelinolysis. We will also obtain routine EEG to rule out seizure disorder. This EEG was completed today. We did review the EEG and it is within normal limits for his age. There was no evidence of any epileptiform discharges. His overall prognosis at this time remains guarded. We have discussed all of these findings in detail with the patient's at bedside. All of her questions were answered. She is aware of his guarded condition. We will await for his MRI of the brain to be done tomorrow. We will continue close neurological follow-up for this patient in the intensive care unit.
[2017-02-01 02:48] LABS: Glucose,Whole Blood 127 mg/dL (75-99)
[2017-02-01 04:43] LABS: CH 30.5; CHCM 34.2; HCT 39.6 % (39.0-53.0); HDW 2.31; HGB 13.4 gm/dL (13.0-17.5); MCH 30.2 pg (25.0-35.0); MCHC 33.8 g/dL (31.0-37.0); MCV 89.3 fL (80.0-100.0); Mean Platelet Volume 6.8; RBC 4.44 m/uL (4.30-5.90); RDW 12.2 % (11.5-15.5); WBC 10.9 k/uL (3.8-10.6)
[2017-02-01 04:55] LABS: Anion Gap 13 mmol/L; Blood Urea Nitrogen 24 mg/dL (9-20); Calcium 9.5 mg/dL (8.4-10.2); Carbon Dioxide 27 mmol/L (22-30); Chloride 90 mmol/L (98-107); Glucose 129 mg/dL (74-99); Magnesium 1.5 mg/dL (1.6-2.3); Non-African American GFR(MDRD) >60 (>60 ml/min/1.73 sqM); Phosphorous 4.8 mg/dL (2.5-4.5); Potassium 3.4 mmol/L (3.5-5.1); Sodium 130 mmol/L (137-145)
[2017-02-01] MEDS ORDERED: Potassium Replacement Protocol 1 EACH MISC MISCELLANE PRN (05:27)
[2017-02-01] MEDS ORDERED: Magnesium Replacement Protocol 1 EACH MISC MISCELLANE PRN (05:28)
[2017-02-01] MEDS: SODIUM CHLORIDE 0.9% 1,000 ML IV SCH (05:39)
[2017-02-01] MEDS: POTASSIUM CHLORIDE 10 MEQ in WATER FOR INJECTION 1 100ML.BAG IVPB SCH ×2 (06:11→08:37)
[2017-02-01] MEDS: MAGNESIUM SULFATE-D5W PMX 1 GM in DEXTROSE/WATER 1 100ML.BAG IVPB SCH ×2 (06:12→08:38)
[2017-02-01] MEDS: FLUoxetine HCL 20 MG CAP PO SCH (08:39)
[2017-02-01] MEDS: PANTOPRAZOLE 40 MG/10 ML VIAL IVP SCH (08:39)
[2017-02-01] MEDS: ATENOLOL 50 MG TAB PO SCH (08:39)
[2017-02-01] MEDS: HEPARIN SODIUM,PORCINE 5,000 UNIT/ML 1 ML VIAL SQ SCH ×2 (08:39→20:27)
[2017-02-01] MEDS: CHOLECALCIFEROL 1,000 UNIT TAB PO SCH (08:39)
[2017-02-01] MEDS ORDERED: FUROSEMIDE 10 MG/ML 2 ML VIAL IV ONE (08:40)
--- NOTE | 2017-02-01 08:51 | P.PN ---
Subjective Patient is seen in follow-up for hyponatremia. Patient was recently started on a thiazide diuretic which is currently held. Sodium level was 111 on admission on January 27 at 8 PM. He initially required 3% saline which was subsequently discontinued. Patient has a Romero catheter in place and is nonoliguric. Oral intake is poor. Patient was transferred out of the intensive care unit but was noted to be slow to respond and was also noted to have some tremors. He was subsequently transferred back to the intensive care unit. He is currently resting in bed. He is able to move all his extremities. He is somewhat confused and remains slow to respond but is alert and oriented 3. Last night he was again noted to have a blank stare and was not responding to verbal commands. Repeat brain CT was noted to be negative. He also received hydralazine and Vasotec which dropped his blood pressures quite low. He did receive a 500 mL bolus of normal saline. He is hemodynamically now stable. Sodium level is 130 this morning. Vital signs are stable. General: The patient appeared well nourished and normally developed. Alert and oriented 3 but slow to respond. HEENT: Head exam is unremarkable. Neck is without jugular venous distension. LUNGS: Lungs are clear to auscultation and percussion. Breath sounds decreased. HEART: Rate and Rhythm are regular. First and second heart sounds normal. No murmurs, rubs or gallops. ABDOMEN: Abdominal exam reveals normal bowel sounds. Non-tender and non- distended. No evidence of peritonitis. EXTREMITITES: No clubbing, cyanosis, or edema. 5 out of 5 strength in all 4 extremities. Objective - Vital Signs Vital signs: Vital Signs Temp 97.7 F 02/01/17 08:00 Pulse 75 02/01/17 08:00 Resp 18 02/01/17 08:00 BP 126/82 02/01/17 08:00 Pulse Ox 97 02/01/17 08:00 Intake & Output 01/31/17 02/01/17 02/01/17 18:59 06:59 18:59 Intake Total 100 580 100 Output Total 850 633 54 Balance -750 -53 46 Weight 55 kg Intake: IV 550 100 Sodium Chloride 0.9% 1, 50 100 000 ml @ 50 mls/hr IV . Q20H [facility] Rx#:[id number] Sodium Chloride 0.9% 250 500 ml @ 999 mls/hr IV .Q16M [facility] Rx#:[id number] Oral 100 30 Output: Urine 850 633 54 Other: Voiding Method Indwelling Catheter Indwelling Catheter # Voids 1 - Labs CBC & Chem 7: 02/01/17 04:33 02/01/17 04:33 Labs: Abnormal Lab Results - Last 24 Hours (Table) 01/31/17 01/31/17 02/01/17 Range/Units 13:25 19:01 02:46 WBC (3.8-10.6) k/uL Sodium 127 L 128 L (137-145) mmol/L Potassium (3.5-5.1) mmol/L Chloride (98-107) mmol/L BUN (9-20) mg/dL Glucose (74-99) mg/dL POC Glucose (mg/dL) 127 H (75-99) mg/dL Phosphorus (2.5-4.5) mg/dL Magnesium (1.6-2.3) mg/dL 02/01/17 02/01/17 Range/Units 04:33 04:33 WBC 10.9 H (3.8-10.6) k/uL Sodium 130 L (137-145) mmol/L Potassium 3.4 L (3.5-5.1) mmol/L Chloride 90 L (98-107) mmol/L BUN 24 H (9-20) mg/dL Glucose 129 H (74-99) mg/dL POC Glucose (mg/dL) (75-99) mg/dL Phosphorus 4.8 H (2.5-4.5) mg/dL Magnesium 1.5 L (1.6-2.3) mg/dL Assessment and Plan Plan: Assessment: #1. Hyponatremia. Currently euvolemic in nature. Etiology is use of thiazide diuretic as well as urinary retention. Patient also taking Prozac which can induce SIADH. Low uric acid also suggestive of SIADH. Sodium level was 111 on admission and has been correcting at a gradual pace - goal rate of correction has been no more than 7-8 mEq in a 24-hour period. It is up to 130 this morning. No evidence of hypothyroidism. #2. Altered mental status secondary to hyponatremia. His mentation had improved but was noted to have tremors and slow to respond. Neurology following. EEG normal. MRI pending. #3. Hypokalemia secondary to diuretics, being replaced. Magnesium also on the lower side. #4. Benign hypertension. Blood pressures have been labile. He was initially hypertensive but became severely hypotensive after he received Vasotec and hydralazine. Improved after 500 mL bolus. Plan: Continue with normal saline at 50 mL an hour. Check sodium level at 12 PM today. Encouraged oral intake as able to tolerate- added ensure 3 times a day. Maintain 1.5 L fluid restriction. May need to use an alternative to Prozac. Lasix 20 mg IV once now. Replace potassium. 40 mEq today. Replace magnesium. 2 g IV today.
[2017-02-01] MEDS: LISINOPRIL 20 MG TAB PO SCH (11:46)
[2017-02-01 13:19] LABS: Anion Gap 12 mmol/L; Blood Urea Nitrogen 29 mg/dL (9-20); Calcium 9.2 mg/dL (8.4-10.2); Carbon Dioxide 27 mmol/L (22-30); Chloride 90 mmol/L (98-107); Glucose 125 mg/dL (74-99); Non-African American GFR(MDRD) >60 (>60 ml/min/1.73 sqM); Potassium 3.9 mmol/L (3.5-5.1); Sodium 129 mmol/L (137-145)
--- NOTE | 2017-02-01 14:16 | P.PN ---
Subjective Progress Note Date: 02/01/17 This is a 71-year-old male patient of Dr. Street with past medical history of coronary artery disease, myocardial infarction status post stent, diabetes mellitus type 2, hypertension, depression, anxiety, patient was brought into the emergency department at [facility] yesterday with his due to generalized weakness and inability to ambulate, patient was having significant mental status changes with significant encephalopathy patient was found to have a sodium 411 he was recently started on lisinopril hydrochlorothiazide for his primary care physician, and the patient was found to have an elevated serum osmolality and urine aspirin D with elevated urine sodium initially he was hypovolemic and now he is euvolemic hyponatremia due to the use of thiazide diuretics, patient also was found to have a significant hypokalemia due to the use of the diuretics as well who was admitted to the intensive care unit he was seen in consultation by nephrology as well as by critical care medicine Dr. Xie my patient also was started on hypertonic 3 % solution and he is currently off all IV fluids and his sodium level is 119, repeat a sodium level if the sodium continues to rise the patient would be started on half normal saline as well as possible DDAVP. 01/29: Patient remains in the intensive care unit. He continues to be weak and confused. Sodium is now I'll 120 and chloride 89. He has followed by nephrology and Dr. Xie from pulmonary medicine. He is on a 1.5 L fluid restriction and is continued on IV fluids of normal saline at 50 mL per hour. 02/01: CT soft tissue of the neck revealed soft tissue thickening in the region the right tubal and palatine tonsils may be secondary to head tilt. No abnormal lymphadenopathy or suspicious neck masses. CT of the chest abdomen and pelvis revealed COPD with moderate emphysema and probable underlying pulmonary arterial hypertension. A few pulmonary nodules at 5 mm and one at 8 mm subpleural nodule in the right lower lobe. Recommend repeat in 6-12 months. Ectatic descending thoracic aorta and mild AAA at 3 cm. Bladder distended with Romero in place. Proximal sigmoid diverticulosis without acute diverticulitis with recommended screening colonoscopy. Over the weekend, patient was transferred out of the intensive care unit but was found to have slow response and some tremors and there was concern for stroke or seizures and he was transferred back to the intensive care unit. Last night patient had an episode where he was staring blankly and he did not answer the nurse. His blood pressure was 190. He underwent a repeat CAT scan of the brain which will be #3 which shows no acute findings. Dr. Metcalf has ordered an MRI for today. EEG was within normal limits for age. Patient continues to be followed by Dr. 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 Prozac will be discontinued and patient started on mirtazapine. Sodium is now at 1:30. He is ordered for 1 dose of Lasix 20 mg and IV fluids at 0.950 mL per hour. Repeat sodium to be checked at noon. Patient is not interested in eating or drinking. He takes a little Ensure with his pills only. Potassium and magnesium were replaced. Objective - Vital Signs Vital signs: Vital Signs Temp 97.7 F 02/01/17 08:00 Pulse 75 02/01/17 08:00 Resp 18 02/01/17 08:00 BP 126/82 02/01/17 08:00 Pulse Ox 97 02/01/17 08:00 Intake & Output 01/31/17 02/01/17 02/01/17 18:59 06:59 18:59 Intake Total 100 580 100 Output Total 850 633 54 Balance -750 -53 46 Weight 55 kg Intake: IV 550 100 Sodium Chloride 0.9% 1, 50 100 000 ml @ 50 mls/hr IV . Q20H [facility] Rx#:[id number] Sodium Chloride 0.9% 250 500 ml @ 999 mls/hr IV .Q16M [facility] Rx#:[id number] Oral 100 30 Output: Urine 850 633 54 Other: Voiding Method Indwelling Catheter Indwelling Catheter # Voids 1 - Exam General appearance: no acute distress, thin - EENT Eyes: anicteric sclerae, EOMI, PERRLA, no ptosis, no scleral icterus, normal appearance ENT: hearing grossly normal, NA/AT, normal oropharynx, no thrush Ears: bilateral: normal - Neck Neck: no lymphadenopathy, normal ROM, no rigidity, no stridor, no thyromegaly Carotids: bilateral: upstroke delayed Thyroid: bilateral: normal size - Respiratory Respiratory: bilateral: diminished, negative: dullness, rales, rhonchi, wheezing , prolonged expiration, prolonged inspiration - Cardiovascular Rhythm: regular Heart sounds: normal: S1, S2 Abnormal Heart Sounds: no systolic murmur, no S3 Gallop, no S4 Gallop - Gastrointestinal General gastrointestinal: normal bowel sounds, soft, no splenomegaly, no tenderness, no umbilical hernia, no ventral hernia - Integumentary Integumentary: normal, normal turgor - Neurologic Neurologic: focal deficits (significant weakness in both lower extremity is with spasticity) - Musculoskeletal Musculoskeletal: generalized weakness (bilateral lower extremity weakness.) - Psychiatric Psychiatric: A&O x's 2-3, appropriate affect, intact judgment & insight - Labs CBC & Chem 7: 02/01/17 04:33 02/01/17 12:11 Labs: Abnormal Lab Results - Last 24 Hours (Table) 01/31/17 01/31/17 02/01/17 Range/Units 13:25 19:01 02:46 WBC (3.8-10.6) k/uL Sodium 127 L 128 L (137-145) mmol/L Potassium (3.5-5.1) mmol/L Chloride (98-107) mmol/L BUN (9-20) mg/dL Glucose (74-99) mg/dL POC Glucose (mg/dL) 127 H (75-99) mg/dL Phosphorus (2.5-4.5) mg/dL Magnesium (1.6-2.3) mg/dL 02/01/17 02/01/17 Range/Units 04:33 04:33 WBC 10.9 H (3.8-10.6) k/uL Sodium 130 L (137-145) mmol/L Potassium 3.4 L (3.5-5.1) mmol/L Chloride 90 L (98-107) mmol/L BUN 24 H (9-20) mg/dL Glucose 129 H (74-99) mg/dL POC Glucose (mg/dL) (75-99) mg/dL Phosphorus 4.8 H (2.5-4.5) mg/dL Magnesium 1.5 L (1.6-2.3) mg/dL Assessment and Plan Plan: 1. Hyponatremia due to the use of diuretics currently euvolemic with metabolic encephalopathy. Patient is currently on IV fluid, continue fluid restriction 1500 mL in 24 hours, continue to monitor his mental status changes, avoid rapid correction of sodium to avoid central pontine melanosis. Physical therapy evaluation, as the patient stated that he has not been walking much he sits in a wheelchair most of the time due to significant lower back pain and weakness in both lower extremities. Dr. Nguyen is following. Prozac changed to mirtazapine. 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 Consult with Dr. Dixon carter. MRI of the brain. 2. Hypokalemia secondary to the use of diuretics. Status post placement. Check management level. 3. CAD post-PCI in the care of cardiology. Continue patient on atenolol 50 mg orally once every day, Lipitor 20 mg orally once every day, aspirin 162 mg orally once every day. 4. Hypertension and hypertensive cardiovascular disease. Continue lisinopril 10 mg orally once every day, avoid hydrochlorothiazide. 5. Hypomagnesemia. Status post replacement 6. Chronic low back pain. Status post spinal fusion. Continue current pain management. 7. Generalized anxiety disorder and recurrent depression. Prozac changed to mirtazapine, continue Xanax 0.5 mg at bedtime and 0.5 mg the morning. 8. Hyperlipidemia. Continue patient on Lipitor 20 mg orally once every day. 9. PAD. Patient will continue aspirin 160 mg orally once every day as well as Lipitor 20 mg orally once every day, he would need to have arterial Dopplers of both for extremity since an outpatient. 10. DVT prophylaxis. Continue heparin 5000 units subcutaneously every 8 hours. 11. GI prophylaxis. Continue Protonix 40 mg IV push every 24 hours. 12. Patient is full code. Discharge plan: To be determined. PT, OT, social work consults added. Impression and plan of care have been directed as dictated by the signing physician. Amparo Shelton nurse practitioner acting as scribe for signing physician.
--- NOTE | 2017-02-01 14:18 | P.PN ---
Subjective Progress Note Date: 02/01/17 Principal diagnosis: Acute hypoxic respiratory failure secondary to pneumonia, congestive heart failure, and underlying COPD. A 69-year-old male patient who is being seen in consultation upon the request of Dr. Hinson for worsening shortness of breath. At the time of my evaluation , the patient was noted to be quite lethargic and somnolent. He was arousable. He had increased cough and congestion. He had diminished breath sounds throughout his lung ruano bilaterally. He was placed on oxygen at 3 L/m nasal cannula. A blood gas was ordered and it showed a pH of 7.2 with a pCO2 of 50 and a pO2 of 78 at 3 L/m nasal cannula. The patient was also found to be in acute on top of chronic renal failure with an underlying metabolic acidosis and acute hyperkalemia with a potassium level of 5.9. For that reason I made recommendations for this patient to be transferred to the intensive care unit. I was also told that the patient was having hypoglycemic events and he was placed on D5 half-normal saline at rate of 70 and an hour. This patient has history of COPD. The patient is an ex-smoker. His undergone coronary artery bypass surgery 2 years back and [facility] for underlying coronary artery disease. He is also known to have ischemic artery myopathy and has had an AICD in place. He suffers from chronic renal failure. He has hypertension and hyperlipidemia and diabetes mellitus. He presented to the hospital because of increased cough congestion and worsening shortness of breath. No major swelling in lower extremities. No orthopnea. No peripheral edema. His white cell count was nonelevated. His hemoglobin was low and the patient has chronic anemia with a hemoglobin of 8.3-8.4 and he was given IV iron. He was being diuresis with IV Lasix and diuretics got placed on hold as the patient developed an acute on top of chronic renal failure. The patient is also covered with broad-spectrum antibiotics and is currently on IV Fortaz. On 01/29/2017 I'm seeing this patient for a follow-up. The patient is quite lethargic and somnolent and he still continues to have significant limitations level of consciousness. Overnight he was also agitated and confused and he had required a dose of Ativan 1 mg which controlled his agitation. Overnight he was also kept on a BiPAP at a pressure of 12/5 cm of water and FiO2 of 40%. He continues to be oliguric. His renal function is progressively getting worse in his creatinine is up to 5.8. He was started on a bicarb drip yesterday and his serum bicarb is up to 17 and he has an anion gap of 17. The patient's chest x- ray from today showing multilobar pneumonia. A CAT scan of the chest was also done yesterday that showed bilateral pneumonia with airspace disease in the left upper lobe and some minimal airspace disease present in the right lung base. He has a weak cough. He is having difficulties in breathing and up his rest or secretions. His was unable to swallow today due to his marked diminishment in level of consciousness. And based on all this, I made decision to intubate the patient and place him on a mechanical ventilator. I also contacted nephrology and the patient is being considered for hemodialysis today. He is diabetic. His blood sugars have been within the hypoglycemic range and his most recent blood sugar is 163. He remains on D5 with 3 A of bicarb at the rate of 75 mL an hour. On 01/30/2017 the patient is being seen in follow-up in the intensive care unit. As mentioned, the patient was intubated and placed on a mechanical ventilator. This morning his well sedated and is calm and comfortable on Diprivan running at 50 mics. He is also on assist control mode of ventilation at the rate of 24, tidal volume of 500, FiO2 of 60% and a PEEP of 5. Chest x- ray from this morning shows adequate positioning of the orotracheal and orogastric tube. There is some atelectatic changes and left lung base. Overall the aeration is improved. The patient had a bronchoscopy yesterday and the bronchial lavage has been sent for microbial analysis and the results are still pending for now. Meanwhile he is on a broad-spectrum antibiotic coverage including a combination of cefepime, Levaquin and vancomycin. No fever. No hypotension. No chills. The patient is producing diminished urine output and he is still in acute kidney injury. A dialysis catheter was inserted yesterday and received his first session of dialysis yesterday. No volume was taken off and the patient had strict dialysis. The patient is improving in terms of his metabolic derangements. In fact on today's blood gases having a component of acute Luba alkalosis with a pH of 7.5 and a pCO2 of 31 and pO2 of 98. As for his serum bicarb, there is up to 22 and the creatinine is down to 4.12. The patient is on a sliding scale insulin coverage for blood sugar control. He was having issues with elevated blood pressure post intubation. Currently is on a clevidipine running at 1 mg an hour and his blood pressure is under good control. On 01/31/2017 the patient is being seen in follow-up in the intensive care unit. The patient remains intubated on a mechanical ventilator. The morning vent setting showed an assist-control mode at the rate of 20, tidal volume of 450, FiO2 of 60% and PEEP of 5. Morning blood gases showed a pH of 7.45 with a pCO2 of 36 and pO2 46. Based on this the FiO2 was gradually wean down to 50% and hopefully down to 40%. Chest x-ray shows worsening of the right the pulmonary infiltrates especially on the left. ET tube is in a good location. Bronchoscopy was done and the bronchioloalveolar lavage has not shown any microbial growth. Meanwhile the patient remains on a broad-spectrum antibiotics and the patient is currently on a combination of cefepime and Levaquin and vancomycin. Hemodynamically he is doing well. He is on no pressors. In fact he was requiring clevidipine drip for blood pressure control. His blood pressure is controlled on 2 mg of clevidipine drip. He underwent dialysis yesterday without ultrafiltration. His creatinine is down to 2.85 and the patient is producing urine and order of 50-75 mL an hour. His urine output is improved. I'm not sure if he is going to require dialysis tomorrow. Discussed the case with the nephrology. Would like to give him a dose of Lasix to augment his urine output and he will be receiving 60 mg IV push. The patient is still sedated on Diprivan. Diprivan is running at 50 mics. He can still wake himself up through the sedation. He is moving all 4 extremities. His sedation has been titrated on Diprivan at times at is being brought up to 60 mics. The patient's cardiac ventricular paced. He is tolerating his tube feeds. He is on insulin drip running at 5 units an hour. He is still on a bronchodilators and systemic steroids for his COPD exacerbation. No other significant events overnight. Reevaluated today on 02/01/2017, patient remains on mechanical ventilation, presently a tidal volume of 450 assist control rate of 20 FiO2 is 45% and PEEP is 5. ABG showed a pO2 of 93 pCO2 of 38 pH of 7.41. Chest x-ray was reviewed, there is evidence of diffuse interstitial opacities and airspace disease bilaterally more so in the left perihilar area I believe the findings are mostly findings of pneumonia and congestive heart failure. His bronchoscopy has been nondiagnostic. Patient remains on broad-spectrum antibiotics in the form of cefepime and Levaquin as well as vancomycin. Patient is hemodynamically stable, not requiring any drips, he is however on clevidipine for elevated blood pressure. CBC showed normal WBC count hemoglobin is 7.2 BUN is 81 creatinine 2.90. Urine output seems to be adequate. And improving. Patient is not requiring dialysis at this point. Patient remains on propofol for sedation. He is also on nutritional support via enteral feeding. Remains on bronchodilators, remains on insulin drip. Objective - Vital Signs Vital signs: Vital Signs Temp 98.5 F 02/01/17 12:00 Pulse 85 02/01/17 13:00 Resp 21 02/01/17 13:00 BP 132/71 02/01/17 13:00 Pulse Ox 97 02/01/17 13:00 Intake & Output 01/31/17 02/01/17 02/01/17 18:59 06:59 18:59 Intake Total 100 580 350 Output Total 850 633 252 Balance -750 -53 98 Weight 55 kg 55 kg Intake: IV 550 350 Sodium Chloride 0.9% 1, 50 350 000 ml @ 50 mls/hr IV . Q20H [facility] Rx#:[id number] Sodium Chloride 0.9% 250 500 ml @ 999 mls/hr IV .Q16M ONE Rx#:[id number] Oral 100 30 Output: Urine 850 633 252 Other: Voiding Method Indwelling Catheter Indwelling Catheter Indwelling Catheter # Voids 1 - Exam Patient is well sedated, intubated on a mechanical ventilator. Orogastric and orotracheal tube are both in place. He is calm and comfortable. My normal had neck is short and thick and supple and there is no significant neck veins. No JVDs. No goiter.Head exam was generally normal. There was no scleral icterus or corneal arcus. Mucous membranes were moist. Lungs sounds are diminished bilaterally otherwise clear in breast on that equal and symmetrical.Cardiac exam revealed the PMI to be normally situated and sized. The rhythm was regular and no extrasystoles were noted during several minutes of auscultation. The first and second heart sounds were normal and physiologic splitting of the second heart sound was noted. There were no murmurs, rubs, clicks, or gallops.Abdominal exam revealed normal bowel sounds. The abdomen was soft, non- tender, and without masses, organomegaly, or appreciable enlargement of the abdominal aorta. Patient is obese and organs cannot be accurately palpated on today's evaluation.Examination of the extremities revealed easily palpable radial, femoral and pedal pulses. There was no cyanosis, clubbing or edema. Neurologically the patient is sedated yet he is still moving all 4 extremities upon lowering sedation.Examination of the skin revealed no evidence of significant rashes, suspicious appearing nevi or other concerning lesions. - Labs CBC & Chem 7: 02/01/17 04:33 02/01/17 12:11 Labs: Abnormal Lab Results - Last 24 Hours (Table) 01/31/17 02/01/17 02/01/17 Range/Units 19:01 02:46 04:33 WBC 10.9 H (3.8-10.6) k/uL Sodium 128 L (137-145) mmol/L Potassium (3.5-5.1) mmol/L Chloride (98-107) mmol/L BUN (9-20) mg/dL Glucose (74-99) mg/dL POC Glucose (mg/dL) 127 H (75-99) mg/dL Phosphorus (2.5-4.5) mg/dL Magnesium (1.6-2.3) mg/dL 02/01/17 02/01/17 Range/Units 04:33 12:11 WBC (3.8-10.6) k/uL Sodium 130 L 129 L (137-145) mmol/L Potassium 3.4 L (3.5-5.1) mmol/L Chloride 90 L 90 L (98-107) mmol/L BUN 24 H 29 H (9-20) mg/dL Glucose 129 H 125 H (74-99) mg/dL POC Glucose (mg/dL) (75-99) mg/dL Phosphorus 4.8 H (2.5-4.5) mg/dL Magnesium 1.5 L (1.6-2.3) mg/dL Assessment and Plan Plan: 1 bilateral pneumonia worse on the left with secondary acute hypoxic respiratory failure. Patient is currently intubated on a mechanical ventilator. The bronchoscopy and bronchial lavage showed no microbial growth and the patient remains on a combination of cefepime and Levaquin and vancomycin. Awaiting final cultures from the bronchioloalveolar lavage. Meanwhile, continue the antibiotics. Continue the vent support. Drop down the FiO2 down to 45 % Sedation holiday. No plans for extubation today. 2 acute COPD exacerbation secondary to left lung pneumonia, improving and the steroid dose can be tapered further. 3 acute hypertensive reaction currently on clevidipine drip for blood pressure control, currently on 2 mg of clevidipine drip for tighter blood pressure control 4 diastolic congestion heart failure, ischemic cardiomyopathy and the most recent echocardiogram shows a low normal ejection fraction with an EF around 50- 55%, severely dilated LA, severe pulmonary hypertension with a PA pressure of 68 5 coronary artery disease with previous coronary artery bypass surgery 6 history of cardiac block status post pacemaker insertion/AICD insertion 7 acute on top of chronic renal failure, likely secondary to diuresis. The patient overall had 2 sessions of hemodialysis. His urine output is improved. His acid base balance is also improved. He had severe metabolic acidosis which got corrected. He is producing better urine output. Nephrology is on the case. He has some bleeding at the dialysis catheter insertion site in his right groin. This was monitored very closely. Is on a combination of aspirin and Plavix. His correlation profile is within normal limits. Unsure if he is given needs some more dialysis within the next 24 hours. He'll be monitored very closely. 8 chronic renal failure with stage III to 4 chronic kidney disease 9 diabetes mellitus, currently in size Blood sugar control 10 hypertension 11 hyperlipidemia. 12 hyperkalemia, improved 15 peripheral vascular disease 14 previous history of GI bleed 15 chronic iron deficiency 16 metabolic acidosis currently improved 17 enteral feeding for nutritional support via tube feeds 18 bleeding from catheter insertion site in the right femoral vein, currently inactive 19 anemia where the patient's hemoglobin is down to 7.3. Recommendation: Continue antibiotics, continue diuretics, continue bronchodilators, not requiring dialysis at this point since the patient has excellent urine output, continue to titrate FiO2 down, not ready for weaning and extubation at this point, but this will be addressed hopefully in the next 24-48 hours. Patient remains critically ill, we'll continue sedation holidays every day, critical care time is 35 minutes. Time with Patient: Greater than 30
--- NOTE | 2017-02-01 14:47 | P.PN ---
Subjective Progress Note Date: 02/01/17 Principal diagnosis: Acute symptomatic hyponatremia with hypovolemia related to diuretics. This is a 71-year-old male patient came into the emergency department yesterday because of generalized weakness over the past couple of days. The patient was also somnolent and he was unable to stand up due to his extensive weakness. His condition was progressively getting worse and yesterday felt really bad. No fever. No chills. In the burst department the patient was found to have severe hypochloremic hyponatremia with a sodium level of 111. His chloride level was at 78. His BUN was 13 with a creatinine of 0.6. Glucose was 104. His lactic acid level was at 1.1. His urine osmolality was 407. The serum osmolality was at 407 and a urine sodium was at 45. Patient's urine toxin was positive for benzodiazepines. The patient was recently switched to a antihypertensive medication that includes hydrochlorothiazide. He is not a beer drinker. No history of of malignancy. No history of any other medication change recently. He is on Prozac 20 mg by mouth daily. Chest x-ray showed COPD otherwise clear. CAT scan of the brain was also negative. No history of any hypothyroidism. No diarrhea. No nausea. No vomiting. No hematemesis. Based on this and based on his symptomatically hyponatremia the patient was started on hypertonic 3% saline at the rate of 20 mL an hour and his current sodium level is up 115. He is still very tired. He is requesting to sleep at all times. The patient is known to have multiple other medical problems including coronary artery disease with a previous coronary stent insertion, hypertension, previous myocardial infarction, and COPD. The patient was seen again today 01/29/2017 in follow-up in the intensive care unit. He is currently awake and alert in no acute distress. He continues to be slow to respond. He also needs constant reminding of where he has and the details of his current condition. His current sodium is 120. His current receiving 0.9 normal saline at 50 MLS per hour. He has remained hemodynamically stable. He's been afebrile. Maintaining good O2 saturations in the high 90s on 2 L/m per nasal cannula. Urine output has been adequate. Creatinine 0.60. On 01/30/2017 the patient remains in intensive care unit. He has been slow improvement in his sodium level is up to 126. He is currently off all infusion the patient is receiving no IV fluids and his IV is to Hep-Lock. He is on fluid restrictions. He is gradually improving. He is more interactive on today 's evaluation. No nausea. No vomiting. No diarrhea. No abdominal pain. Adequate urine output. The rest of the electrodes are all within normal limits. His potassium has been replaced. No other significant events overnight. Seems to get stronger and possibly will be able to ambulate today. On 01/31/2017 the patient remains in intensive care unit. He was briefly released out of the ICU however he was brought back as there was concern about his ongoing neurological status. The patient is felt not to be recovering appropriately despite the slow correction of the sodium level. His sodium level has been corrected around 8 mEq over 24 hours. As the correction was being done and the patient continued to be weak and lethargic and furthermore no appropriate neurologic recovery was noted. This morning he remains on and off confused , slow in answering questions, twitching at times, profoundly weak to the point where he was unable to stand up and bear any weight. Headaches. No seizure activity noted. No tonic postures. No loss of consciousness. He is able to speak and his speech is delayed and not appropriate to the clinical setting that he is in. Based on all this, I repeated the CAT scan of the head and it showed no acute intracranial abnormalities. There was some mild changes consistent with chronic small vessel ischemic disease. The patient also had a CAT scan of the neck that showed soft tissue thickening in the region of the right palatine tonsils and this was thought to be positional in nature. No significant lymphadenopathy in the neck or suspicious neck masses. CAT scan of the chest abdomen and pelvis was also done and it showed COPD and few pulmonary nodules are present up to 5 mm in size however these were nonspecific and possibility of neoplasm was felt to be really low in follow-up CAT scans admitted recommended. The patient had an ectatic descending aorta with a mild abdominal aortic aneurysm measuring 3.0 cm in size. The patient was also found to have some proximal sigmoid diverticulosis without evidence of diverticulitis. Neurology was consulted. EEG is to follow. MRI of the brain is to follow. The patient's oral intake is minimal at this point. He is on no IV fluids. On 02/01/2017, patient seems to be doing much better, alert oriented 3, however he had episodes last night were in he was quite confused, and he was unable to move his upper extremities. Nubieber that the patient may have had a stroke, of course the main concern is whether the patient is having CPM. CT of the brain came back negative again, neurology is still following the patient, his sodium is 130 today. Rest of the labs were noted to be unremarkable. Objective - Vital Signs Vital signs: Vital Signs Temp 98.5 F 02/01/17 12:00 Pulse 73 02/01/17 14:00 Resp 15 02/01/17 14:00 BP 119/68 02/01/17 14:00 Pulse Ox 97 02/01/17 14:00 Intake & Output 01/31/17 02/01/17 02/01/17 18:59 06:59 18:59 Intake Total 100 580 400 Output Total 850 633 472 Balance -750 -53 -72 Weight 55 kg 55 kg Intake: IV 550 400 Sodium Chloride 0.9% 1, 50 400 000 ml @ 50 mls/hr IV . Q20H [facility] Rx#:[id number] Sodium Chloride 0.9% 250 500 ml @ 999 mls/hr IV .Q16M ONE Rx#:[id number] Oral 100 30 Output: Urine 850 633 472 Other: Voiding Method Indwelling Catheter Indwelling Catheter Indwelling Catheter # Voids 1 - Exam Physical Exam: Revealed a 71-year-old white male in no form of respiratory distress. HEENT: PERRLA, EOMI, throat is clear. [Neck is supple.] [No neck masses.] [No thyromegaly.] [No JVD.] Chest: [Clear throughout, no crackles, no rhonchi, no wheezes.] Cardiac Exam: [Normal S1 and S2, no S3 gallop, no murmur.] Abdomen: [Soft, nontender, no megaly, no rebound, no guarding, normal bowel sounds.] Extremities: [No clubbing, no edema, no cyanosis.] Neurological Exam: [No focal neurologic deficit.] Skin: No rashes, no ulcerations. Lymphatics: No lymphadenopathy. Psychiatric: Blunted affect, depressed mood, otherwise normal mental status examination. - Labs CBC & Chem 7: 02/01/17 04:33 02/01/17 12:11 Labs: Abnormal Lab Results - Last 24 Hours (Table) 01/31/17 02/01/17 02/01/17 Range/Units 19:01 02:46 04:33 WBC 10.9 H (3.8-10.6) k/uL Sodium 128 L (137-145) mmol/L Potassium (3.5-5.1) mmol/L Chloride (98-107) mmol/L BUN (9-20) mg/dL Glucose (74-99) mg/dL POC Glucose (mg/dL) 127 H (75-99) mg/dL Phosphorus (2.5-4.5) mg/dL Magnesium (1.6-2.3) mg/dL 02/01/17 02/01/17 Range/Units 04:33 12:11 WBC (3.8-10.6) k/uL Sodium 130 L 129 L (137-145) mmol/L Potassium 3.4 L (3.5-5.1) mmol/L Chloride 90 L 90 L (98-107) mmol/L BUN 24 H 29 H (9-20) mg/dL Glucose 129 H 125 H (74-99) mg/dL POC Glucose (mg/dL) (75-99) mg/dL Phosphorus 4.8 H (2.5-4.5) mg/dL Magnesium 1.5 L (1.6-2.3) mg/dL Assessment and Plan Plan: 1 symptomatic hyponatremia, possibly drug induced secondary to intake of hydrochlorothiazide. Considering the patient's intermittent changes in mental status, CPM is being considered, but it's felt to be less likely. Unless the patient had rapid development of hyponatremia before presentation, that could also lead to some mild CPM. Looking at the patient's chart, his sodium was actually corrected slowly, and this should not lead to CPM. 2 profound generalized weakness secondary to above, without any focal neurological deficit at this point. Cranial nerves seem to be intact. Mental status is waxing and waning as mentioned. Neurology has been consulted. 3 coronary artery disease with previous coronary intervention and stenting 4 hypertension, patient is off hydrochlorothiazide and the lisinopril was restarted. 5 COPD 6 hyperlipidemia Plan continue to monitor neurological status, keep the patient in the ICU, control the blood pressure and will continue to follow. Time with Patient: Less than 30
--- NOTE | 2017-02-01 19:25 | MR ---
EXAMINATION TYPE: MR brain wo con DATE OF EXAM: 02/01/2017 COMPARISON: CT 01/30/2017 HISTORY: Patient with altered mental status and hyponatremia TECHNIQUE: Multiplanar/multisequence MRI departmental protocol FINDINGS: There is no restricted diffusion to suggest acute or subacute infarction. No evidence of in tracranial hemorrhage. There is no mass or mass effect. There is no cytotoxic or vasogenic edema. The re are a few tiny scattered 1 to 3 mm foci of T2 prolongation within the deep white matter of the cor yuridia radiata and centrum semiovale, entirely nonspecific. The extra-axial compartment is unremarkable. The vascular flow voids are unremarkable The calvarium, orbits, paranasal sinuses, mastoid sinus air cells, and middle ear cavities are unrema rkable. IMPRESSION: NO ACUTE PROCESS.
[2017-02-01 19:54] LABS: Anion Gap 8 mmol/L; Blood Urea Nitrogen 29 mg/dL (9-20); Calcium 9.4 mg/dL (8.4-10.2); Carbon Dioxide 28 mmol/L (22-30); Chloride 92 mmol/L (98-107); Glucose 126 mg/dL (74-99); Non-African American GFR(MDRD) >60 (>60 ml/min/1.73 sqM); Potassium 3.8 mmol/L (3.5-5.1); Sodium 128 mmol/L (137-145)
[2017-02-01] MEDS: ATORVASTATIN 20 MG TAB PO SCH ×2 (20:26→23:52)
[2017-02-01] MEDS: SENNOSIDES 8.6 MG TAB PO SCH ×2 (20:26→23:54)
[2017-02-01] MEDS: MIRTAZAPINE 15 MG TAB PO SCH ×2 (20:26→23:53)
[2017-02-01] MEDS: ASPIRIN 81 MG PO SCH ×2 (20:26→23:51)
[2017-02-01] MEDS ORDERED: FUROSEMIDE 10 MG/ML 4 ML VIAL IV STA (21:35)
[2017-02-02] MEDS ORDERED: LORazepam 2 MG/ML INJ IV PRN (00:41)
--- NOTE | 2017-02-02 02:06 | P.PN ---
Subjective Progress Note Date: 02/01/17 This patient is a 71-year-old male who is being evaluated in the intensive care unit for generalized weakness and hyponatremia. The patient continues to have generalized weakness in the intensive care unit. His serum sodium today is 129. Nephrology is monitoring is condition closely in the ICU. We have recommended a EEG to be done today as well as a MRI of the brain for further evaluation of the brainstem region to rule out possibility of central pontine myelinolysis. The patient was able to complete his EEG today. The EEG was reviewed and is essentially normal for his age. There was no evidence of any epileptiform discharges. He has had some occasional twitching involving the left side of his face since coming back into the intensive care unit. Today he is more awake and alert and is answering questions. Apparently his mental status continues to wax and wane. We will await the results of his MRI of the brain for further evaluation and to rule out possibility of central pontine myelinolysis. Patient was able to complete MRI of the brain today. MRI reveals no acute changes. No evidence to suggest central pontine myelinolysis. The patient remains in the intensive care unit today. His has noted some improvement in his overall mental status today as compared to yesterday. According to the he is doing better today in terms of his overall general functioning. Today in the ICU he does seem to be more awake and alert. The patient continues to reveal and shows signs of mild to moderate depression. For this reason a inpatient psychiatry consultation has been ordered. We will continue close neurological follow-up with this patient during this admission. The patient does show some improvement in his overall mental status as compared to his first day in the ICU. We will continue close neurological follow-up for the patient. We will review the MRI results once they are available with the patient. As noted to his hyponatremia continues to improve slowly in the ICU setting. His overall prognosis at this time remains guarded. We will continue close neurological follow-up this patient in the ICU. Objective - Vital Signs Vital signs: Vital Signs Temp 98.5 F 02/01/17 12:00 Pulse 73 02/01/17 14:00 Resp 15 02/01/17 14:00 BP 119/68 02/01/17 14:00 Pulse Ox 97 02/01/17 14:00 Intake & Output 01/31/17 02/01/17 02/01/17 18:59 06:59 18:59 Intake Total 100 580 400 Output Total 850 633 472 Balance -750 -53 -72 Weight 55 kg 55 kg Intake: IV 550 400 Sodium Chloride 0.9% 1, 50 400 000 ml @ 50 mls/hr IV . Q20H [facility] Rx#:[id number] Sodium Chloride 0.9% 250 500 ml @ 999 mls/hr IV .Q16M [facility] Rx#:[id number] Oral 100 30 Output: Urine 850 191 472 Other: Voiding Method Indwelling Catheter Indwelling Catheter Indwelling Catheter # Voids 1 - Exam Physical examination: PHYSICAL EXAMINATION: Patient is resting comfortably in bed. VITAL SIGNS: Blood pressure is [121/68]. Heart rate is [70]. Respiration is [18] . Temperature is [98.]. HEENT: Head is atraumatic, neck is supple, there were no carotid bruits. CHEST: Lungs are clear to auscultation and percussion. CARDIAC: S1, S2 normal rate and rhythm. There is no murmur. ABDOMEN: Soft and nontender. Bowel sounds are present. EXTREMITIES: There is no pedal edema. Peripheral pulses are present. Neurological examination: Patient's neurological examination is unchanged from yesterday. - Labs CBC & Chem 7: 02/01/17 04:33 02/01/17 19:21 Labs: Abnormal Lab Results - Last 24 Hours (Table) 01/31/17 02/01/17 02/01/17 Range/Units 19:01 02:46 04:33 WBC 10.9 H (3.8-10.6) k/uL Sodium 128 L (137-145) mmol/L Potassium (3.5-5.1) mmol/L Chloride (98-107) mmol/L BUN (9-20) mg/dL Glucose (74-99) mg/dL POC Glucose (mg/dL) 127 H (75-99) mg/dL Phosphorus (2.5-4.5) mg/dL Magnesium (1.6-2.3) mg/dL 02/01/17 02/01/17 Range/Units 04:33 12:11 WBC (3.8-10.6) k/uL Sodium 130 L 129 L (137-145) mmol/L Potassium 3.4 L (3.5-5.1) mmol/L Chloride 90 L 90 L (98-107) mmol/L BUN 24 H 29 H (9-20) mg/dL Glucose 129 H 125 H (74-99) mg/dL POC Glucose (mg/dL) (75-99) mg/dL Phosphorus 4.8 H (2.5-4.5) mg/dL Magnesium 1.5 L (1.6-2.3) mg/dL Assessment and Plan (1) Hyponatremia Status: Acute Code(s): E87.1 - HYPO-OSMOLALITY AND HYPONATREMIA (2) Acute encephalopathy Status: Acute Code(s): G93.40 - ENCEPHALOPATHY, UNSPECIFIED (3) Generalized weakness Status: Acute Code(s): R53.1 - WEAKNESS (4) Essential hypertension Status: Acute Code(s): I10 - ESSENTIAL (PRIMARY) HYPERTENSION Plan: This patient is a 71-year-old right-handed white male who was initially admitted to [facility] on 01/27/2017 for evaluation of generalized weakness and fatigue. He was found to have evidence of profound hyponatremia with a serum sodium level of 111. He was started on a 3% hypertonic saline solution at a rate of 20 mL per hour and admitted to the intensive care unit. Patient showed slow improvement in his overall condition and was transferred out of the intensive care unit this morning to the medical floor. According to his he had a sudden episode of unresponsiveness on the medical floor and some twitching. He was transferred back into the intensive care unit today for close monitoring. The patient's serum sodium level today is 126. He does seem to arouse and answer questions appropriately but is very fatigued. He complains of generalized fatigue and malaise. His serum sodium as noted today is 126. Since his admission to Hospital there is been a 15 mEq improvement in his serum sodium level. He has been monitored closely for slow correction of his hyponatremia since his admission into the ICU. Nephrology in pulmonary medicine or following the patient very closely. His neurological examination reveals him to be slightly lethargic but arousable. He has generalized weakness. He appears to be slightly depressed. He has been treated for depression and has been taking Prozac for over 20 years. Nephrology is monitoring his serum sodium levels very closely. There is a possibility that Prozac may induce SIADH picture. We will await further recommendations from nephrology. Given the patient's generalized weakness and altered mentation we have recommended an MRI of the brain to further evaluate for any possibility of central pontine myelinolysis. We will also obtain routine EEG to rule out seizure disorder. This EEG was completed today. We did review the EEG and it is within normal limits for his age. There was no evidence of any epileptiform discharges. His overall prognosis at this time remains guarded. We have discussed all of these findings in detail with the patient's at bedside. All of her questions were answered. She is aware of his guarded condition. We will await results for his MRI of the brain that was done earlier today. We will review the results tomorrow with the patient.. We will continue close neurological follow-up for this patient in the intensive care unit.
[2017-02-02 04:38] LABS: Basophils % (A) 0 %; CH 31.6; CHCM 34.3; Eosinophils % (A) 0 %; HCT 38.8 % (39.0-53.0); HDW 2.19; HGB 12.8 gm/dL (13.0-17.5); Luc # (Auto) 0.16; Luc % (Auto) 1; Lymphocytes # (A) 0.5 k/uL (1.0-4.8); Lymphocytes % (A) 4 %; MCH 30.5 pg (25.0-35.0); MCV 92.4 fL (80.0-100.0); Mean Platelet Volume 6.8; Monocytes # (A) 0.7 k/uL (0-1.0); Monocytes % (A) 6 %; Neutrophils # (A) 10.6 k/uL (1.3-7.7); Neutrophils % (A) 88 %; RDW 13.2 % (11.5-15.5); WBC (Perox) 11.77
[2017-02-02 04:52] LABS: Anion Gap 11 mmol/L; Blood Urea Nitrogen 27 mg/dL (9-20); Calcium 9.3 mg/dL (8.4-10.2); Carbon Dioxide 28 mmol/L (22-30); Chloride 90 mmol/L (98-107); Glucose 127 mg/dL (74-99); Magnesium 1.6 mg/dL (1.6-2.3); Non-African American GFR(MDRD) >60 (>60 ml/min/1.73 sqM); Potassium 3.5 mmol/L (3.5-5.1); Sodium 129 mmol/L (137-145)
[2017-02-02] MEDS ORDERED: Magnesium Replacement Protocol 1 EACH MISC MISCELLANE PRN (05:55)
[2017-02-02] MEDS: POTASSIUM CHLORIDE 20 MEQ, LIDOCAINE 2% INJ 20 MG in SODIUM CHLORIDE 0.9% 100 ML IVPB SCH ×2 (06:42→08:52)
[2017-02-02] MEDS: MAGNESIUM SULFATE-D5W PMX 1 GM in DEXTROSE/WATER 1 100ML.BAG IVPB SCH ×2 (06:42→07:48)
[2017-02-02] MEDS: SODIUM CHLORIDE 0.9% 1,000 ML IV SCH (06:42)
[2017-02-02] MEDS: HEPARIN SODIUM,PORCINE 5,000 UNIT/ML 1 ML VIAL SQ SCH (08:29)
[2017-02-02] MEDS: CHOLECALCIFEROL 1,000 UNIT TAB PO SCH (08:29)
[2017-02-02] MEDS: ATENOLOL 50 MG TAB PO SCH (08:29)
[2017-02-02] MEDS: PANTOPRAZOLE 40 MG/10 ML VIAL IVP SCH (08:29)
[2017-02-02] MEDS: LISINOPRIL 20 MG TAB PO SCH (08:29)
[2017-02-02 09:22] VITALS: RESP 19
[2017-02-02 10:19] VITALS: BMI 19.5
--- NOTE | 2017-02-02 10:22 | P.PN ---
Subjective Progress Note Date: 02/02/17 This is a 71-year-old male patient of Dr. Street with past medical history of coronary artery disease, myocardial infarction status post stent, diabetes mellitus type 2, hypertension, depression, anxiety, patient was brought into the emergency department at [facility] yesterday with his due to generalized weakness and inability to ambulate, patient was having significant mental status changes with significant encephalopathy patient was found to have a sodium 411 he was recently started on lisinopril hydrochlorothiazide for his primary care physician, and the patient was found to have an elevated serum osmolality and urine aspirin D with elevated urine sodium initially he was hypovolemic and now he is euvolemic hyponatremia due to the use of thiazide diuretics, patient also was found to have a significant hypokalemia due to the use of the diuretics as well who was admitted to the intensive care unit he was seen in consultation by nephrology as well as by critical care medicine Dr. Xie my patient also was started on hypertonic 3 % solution and he is currently off all IV fluids and his sodium level is 119, repeat a sodium level if the sodium continues to rise the patient would be started on half normal saline as well as possible DDAVP. 01/29: Patient remains in the intensive care unit. He continues to be weak and confused. Sodium is now I'll 120 and chloride 89. He has followed by nephrology and Dr. Xie from pulmonary medicine. He is on a 1.5 L fluid restriction and is continued on IV fluids of normal saline at 50 mL per hour. 02/01: CT soft tissue of the neck revealed soft tissue thickening in the region the right tubal and palatine tonsils may be secondary to head tilt. No abnormal lymphadenopathy or suspicious neck masses. CT of the chest abdomen and pelvis revealed COPD with moderate emphysema and probable underlying pulmonary arterial hypertension. A few pulmonary nodules at 5 mm and one at 8 mm subpleural nodule in the right lower lobe. Recommend repeat in 6-12 months. Ectatic descending thoracic aorta and mild AAA at 3 cm. Bladder distended with Romero in place. Proximal sigmoid diverticulosis without acute diverticulitis with recommended screening colonoscopy. Over the weekend, patient was transferred out of the intensive care unit but was found to have slow response and some tremors and there was concern for stroke or seizures and he was transferred back to the intensive care unit. Last night patient had an episode where he was staring blankly and he did not answer the nurse. His blood pressure was 190. He underwent a repeat CAT scan of the brain which will be #3 which shows no acute findings. Dr. Metcalf has ordered an MRI for today. EEG was within normal limits for age. Patient continues to be followed by Dr. 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 Prozac will be discontinued and patient started on mirtazapine. Sodium is now at 1:30. He is ordered for 1 dose of Lasix 20 mg and IV fluids at 0.950 mL per hour. Repeat sodium to be checked at noon. Patient is not interested in eating or drinking. He takes a little Ensure with his pills only. Potassium and magnesium were replaced. 02/02: Sodium has been between 128 and 130 in the past 24 hours. This morning sodium is 129. MRI of the brain shows no acute process. Patient had another episode of staring and not answering the nurse last evening. Patient apparently had restlessness and did not sleep. He was given a dose of IV Ativan. He did not receive the Remeron that was ordered. There is concern regarding his swallowing as he verbalizes he doesn't know what to do with the pill. Patient is sleeping at the time of examination but awakens to verbal stimuli. He was complaining of his eyes feeling like they are on fire and red and watery. Patient also apparently said that he was suicidal last night and there is a sitter ordered and psychiatric consult has been requested. Patient states he does not remember saying that he has had depression. He has no appetite no energy but no recent loss in his life. Remeron moved to 6 PM administration. Objective - Vital Signs Vital signs: Vital Signs Temp 97.8 F 02/02/17 00:00 Pulse 84 02/02/17 07:00 Resp 30 H 02/02/17 07:00 BP 115/74 02/02/17 07:00 Pulse Ox 94 L 02/02/17 07:00 Intake & Output 02/01/17 02/02/17 02/02/17 18:59 06:59 18:59 Intake Total 600 600 150 Output Total 747 1520 30 Balance -147 -920 120 Weight 55 kg 55 kg Intake: IV 600 100 Sodium Chloride 0.9% 1, 600 100 000 ml @ 50 mls/hr IV . Q20H [facility] Rx#:[id number] Intake, IV Titration 500 150 Amount Magnesium Sulfate-D5w Pmx 100 1 gm In Dextrose/Water 1 100ml.bag @ 100 mls/hr IVPB Q1H [facility] Rx#: [id number] Potassium Chloride 20 meq 50 Lidocaine 2% Inj 20 mg In Sodium Chloride 0.9% 100 ml @ 55.5 mls/hr IVPB Q2H [facility] Rx#:[id number] Sodium Chloride 0.9% 1, 500 000 ml @ 50 mls/hr IV . Q20H [facility] Rx#:[id number] Output: Urine 747 1520 30 Other: Voiding Method Indwelling Catheter Indwelling Catheter - Exam General appearance: no acute distress, thin - EENT Eyes: anicteric sclerae, EOMI, PERRLA, no ptosis, no scleral icterus, normal appearance ENT: hearing grossly normal, NA/AT, normal oropharynx, no thrush Ears: bilateral: normal - Neck Neck: no lymphadenopathy, normal ROM, no rigidity, no stridor, no thyromegaly Carotids: bilateral: upstroke delayed Thyroid: bilateral: normal size - Respiratory Respiratory: bilateral: diminished, negative: dullness, rales, rhonchi, wheezing , prolonged expiration, prolonged inspiration - Cardiovascular Rhythm: regular Heart sounds: normal: S1, S2 Abnormal Heart Sounds: no systolic murmur, no S3 Gallop, no S4 Gallop - Gastrointestinal General gastrointestinal: normal bowel sounds, soft, no splenomegaly, no tenderness, no umbilical hernia, no ventral hernia - Integumentary Integumentary: normal, normal turgor - Neurologic Neurologic: focal deficits (significant weakness in both lower extremity is with spasticity) - Musculoskeletal Musculoskeletal: generalized weakness (bilateral lower extremity weakness.) - Psychiatric Psychiatric: A&O x's 2-3, appropriate affect, intact judgment & insight - Labs CBC & Chem 7: 02/02/17 04:02 02/02/17 04:02 Labs: Abnormal Lab Results - Last 24 Hours (Table) 02/01/17 02/01/17 02/02/17 Range/Units 12:11 19:21 04:02 WBC (3.8-10.6) k/uL RBC (4.30-5.90) m/uL Hgb (13.0-17.5) gm/dL Hct (39.0-53.0) % Neutrophils # (1.3-7.7) k/uL Lymphocytes # (1.0-4.8) k/uL Sodium 129 L 128 L 129 L (137-145) mmol/L Chloride 90 L 92 L 90 L (98-107) mmol/L BUN 29 H 29 H 27 H (9-20) mg/dL Glucose 125 H 126 H 127 H (74-99) mg/dL 02/02/17 Range/Units 04:02 WBC 12.0 H (3.8-10.6) k/uL RBC 4.20 L (4.30-5.90) m/uL Hgb 12.8 L (13.0-17.5) gm/dL Hct 38.8 L (39.0-53.0) % Neutrophils # 10.6 H (1.3-7.7) k/uL Lymphocytes # 0.5 L (1.0-4.8) k/uL Sodium (137-145) mmol/L Chloride (98-107) mmol/L BUN (9-20) mg/dL Glucose (74-99) mg/dL Assessment and Plan Plan: 1. Hyponatremia due to the use of diuretics currently euvolemic with metabolic encephalopathy. Patient is currently on IV fluid, continue fluid restriction 1500 mL in 24 hours, continue to monitor his mental status changes. Physical therapy evaluation, as the patient stated that he has not been walking much he sits in a wheelchair most of the time due to significant lower back pain and weakness in both lower extremities. Dr. Nguyen is following. Prozac changed to mirtazapine. Consult with Dr. Dixon carter. MRI of the brain as above. 2. Hypokalemia secondary to the use of diuretics. Status post placement. Check management level. 3. CAD post-PCI in the care of cardiology. Continue patient on atenolol 50 mg orally once every day, Lipitor 20 mg orally once every day, aspirin 162 mg orally once every day. 4. Hypertension and hypertensive cardiovascular disease. Continue lisinopril 20 mg orally once every day, avoid hydrochlorothiazide. 5. Hypomagnesemia. Status post replacement 6. Chronic low back pain. Status post spinal fusion. Continue current pain management. 7. Generalized anxiety disorder and recurrent depression. Prozac changed to mirtazapine, continue Xanax 0.5 mg at bedtime and 0.5 mg the morning. 8. Hyperlipidemia. Continue patient on Lipitor 20 mg orally once every day. 9. PAD. Patient will continue aspirin 160 mg orally once every day as well as Lipitor 20 mg orally once every day, he would need to have arterial Dopplers of both for extremity since an outpatient. 10. DVT prophylaxis. Continue heparin 5000 units subcutaneously every 8 hours. 11. GI prophylaxis. Continue Protonix 40 mg IV push every 24 hours. 12. Verbalization of suicidal ideation. Sitter at the bedside. Psychiatric consult was added. Patient's Prozac was discontinued and started on Remeron but he did not receive his first dose last night. Administration time changed to 6 PM Patient is full code. Discharge plan: To be determined. PT, OT, social work consults added. Impression and plan of care have been directed as dictated by the signing physician. Amparo Shelton nurse practitioner acting as scribe for signing physician.
[2017-02-02] MEDS ORDERED: FUROSEMIDE 10 MG/ML 4 ML VIAL IV STA (10:47)
--- NOTE | 2017-02-02 10:48 | P.PN ---
Subjective Patient is seen in follow-up for hyponatremia. Patient was recently started on a thiazide diuretic which is currently held. Sodium level was 111 on admission on January 27 at 8 PM. He initially required 3% saline which was subsequently discontinued. Patient has a Romero catheter in place and is nonoliguric. Oral intake has been poor but is gradually improving. Patient was transferred out of the intensive care unit but was noted to be slow to respond and was also noted to have some tremors. He was subsequently transferred back to the intensive care unit. He is currently sitting up in chair. He is able to move all his extremities. He is somewhat confused and remains slow to respond but is alert and oriented 3. Repeat brain CT was noted to be negative. MRI also revealed no acute process. Denies chest pain or shortness of breath. Vital signs are stable. General: The patient appeared well nourished and normally developed. Alert and oriented 3 but slow to respond. HEENT: Head exam is unremarkable. Neck is without jugular venous distension. LUNGS: Lungs are clear to auscultation and percussion. Breath sounds decreased. HEART: Rate and Rhythm are regular. First and second heart sounds normal. No murmurs, rubs or gallops. ABDOMEN: Abdominal exam reveals normal bowel sounds. Non-tender and non- distended. No evidence of peritonitis. EXTREMITITES: No clubbing, cyanosis, or edema. 5 out of 5 strength in all 4 extremities. Objective - Vital Signs Vital signs: Vital Signs Temp 98.7 F 02/02/17 08:00 Pulse 76 02/02/17 09:00 Resp 19 02/02/17 09:00 BP 128/78 02/02/17 09:00 Pulse Ox 94 L 02/02/17 09:00 Intake & Output 02/01/17 02/02/17 02/02/17 18:59 06:59 18:59 Intake Total 600 600 450 Output Total 747 1520 145 Balance -147 -920 305 Weight 55 kg 55 kg 55 kg Intake: IV 600 100 200 Potassium Chloride 20 meq 100 Lidocaine 2% Inj 20 mg In Sodium Chloride 0.9% 100 ml @ 55.5 mls/hr IVPB Q2H [facility] Rx#:[id number] Sodium Chloride 0.9% 1, 600 100 100 000 ml @ 50 mls/hr IV . Q20H [facility] Rx#:[id number] Intake, IV Titration 500 250 Amount Magnesium Sulfate-D5w Pmx 200 1 gm In Dextrose/Water 1 100ml.bag @ 100 mls/hr IVPB Q1H [facility] Rx#: [id number] Potassium Chloride 20 meq 50 Lidocaine 2% Inj 20 mg In Sodium Chloride 0.9% 100 ml @ 55.5 mls/hr IVPB Q2H [facility] Rx#:[id number] Sodium Chloride 0.9% 1, 500 000 ml @ 50 mls/hr IV . Q20H [facility] Rx#:[id number] Output: Urine 747 1520 145 Other: Voiding Method Indwelling Catheter Indwelling Catheter Indwelling Catheter - Labs CBC & Chem 7: 02/02/17 04:02 02/02/17 04:02 Labs: Abnormal Lab Results - Last 24 Hours (Table) 02/01/17 02/01/17 02/02/17 Range/Units 12:11 19:21 04:02 WBC (3.8-10.6) k/uL RBC (4.30-5.90) m/uL Hgb (13.0-17.5) gm/dL Hct (39.0-53.0) % Neutrophils # (1.3-7.7) k/uL Lymphocytes # (1.0-4.8) k/uL Sodium 129 L 128 L 129 L (137-145) mmol/L Chloride 90 L 92 L 90 L (98-107) mmol/L BUN 29 H 29 H 27 H (9-20) mg/dL Glucose 125 H 126 H 127 H (74-99) mg/dL 02/02/17 Range/Units 04:02 WBC 12.0 H (3.8-10.6) k/uL RBC 4.20 L (4.30-5.90) m/uL Hgb 12.8 L (13.0-17.5) gm/dL Hct 38.8 L (39.0-53.0) % Neutrophils # 10.6 H (1.3-7.7) k/uL Lymphocytes # 0.5 L (1.0-4.8) k/uL Sodium (137-145) mmol/L Chloride (98-107) mmol/L BUN (9-20) mg/dL Glucose (74-99) mg/dL Assessment and Plan Plan: Assessment: #1. Hyponatremia. Currently euvolemic in nature. Etiology is use of thiazide diuretic as well as urinary retention. Patient also taking Prozac which can induce SIADH. Low uric acid also suggestive of SIADH. Sodium level was 111 on admission and has been correcting at a gradual pace - goal rate of correction has been no more than 7-8 mEq in a 24-hour period. It is stable at 129 this morning. No evidence of hypothyroidism. #2. Altered mental status secondary to hyponatremia. His mentation had improved but was noted to have tremors and slow to respond. Neurology following. EEG, CAT scan and MRI normal. #3. Hypokalemia secondary to diuretics, being replaced. Magnesium also on the lower side. #4. Benign hypertension. Blood pressures have been labile. He was initially hypertensive but became severely hypotensive after he received Vasotec and hydralazine. Improved after 500 mL bolus. Currently stable. Plan: Continue with normal saline at 50 mL an hour - Hep-Lock once oral intake improves. Lasix 40 mg IV once now. Repeat sodium level at 5 PM today. Encouraged oral intake as able to tolerate- added ensure 3 times a day. Maintain 1.5 L fluid restriction. Prozac has also been discontinued. Replace potassium. 40 mEq today. Replace magnesium. 2 g IV today.
[2017-02-02] MEDS ORDERED: methylPREDNISolone 4 MG TAB TAPER PO SCH (11:15)
[2017-02-02 12:03] VITALS: TEMP 98.1
[2017-02-02 13:46] VITALS: BP 94/56; PULSE 73
--- NOTE | 2017-02-02 13:53 | P.PN ---
Subjective Progress Note Date: 02/02/17 Principal diagnosis: Acute symptomatic hyponatremia with hypovolemia related to diuretics. This is a 71-year-old male patient came into the emergency department yesterday because of generalized weakness over the past couple of days. The patient was also somnolent and he was unable to stand up due to his extensive weakness. His condition was progressively getting worse and yesterday felt really bad. No fever. No chills. In the burst department the patient was found to have severe hypochloremic hyponatremia with a sodium level of 111. His chloride level was at 78. His BUN was 13 with a creatinine of 0.6. Glucose was 104. His lactic acid level was at 1.1. His urine osmolality was 407. The serum osmolality was at 407 and a urine sodium was at 45. Patient's urine toxin was positive for benzodiazepines. The patient was recently switched to a antihypertensive medication that includes hydrochlorothiazide. He is not a beer drinker. No history of of malignancy. No history of any other medication change recently. He is on Prozac 20 mg by mouth daily. Chest x-ray showed COPD otherwise clear. CAT scan of the brain was also negative. No history of any hypothyroidism. No diarrhea. No nausea. No vomiting. No hematemesis. Based on this and based on his symptomatically hyponatremia the patient was started on hypertonic 3% saline at the rate of 20 mL an hour and his current sodium level is up 115. He is still very tired. He is requesting to sleep at all times. The patient is known to have multiple other medical problems including coronary artery disease with a previous coronary stent insertion, hypertension, previous myocardial infarction, and COPD. The patient was seen again today 01/29/2017 in follow-up in the intensive care unit. He is currently awake and alert in no acute distress. He continues to be slow to respond. He also needs constant reminding of where he has and the details of his current condition. His current sodium is 120. His current receiving 0.9 normal saline at 50 MLS per hour. He has remained hemodynamically stable. He's been afebrile. Maintaining good O2 saturations in the high 90s on 2 L/m per nasal cannula. Urine output has been adequate. Creatinine 0.60. On 01/30/2017 the patient remains in intensive care unit. He has been slow improvement in his sodium level is up to 126. He is currently off all infusion the patient is receiving no IV fluids and his IV is to Hep-Lock. He is on fluid restrictions. He is gradually improving. He is more interactive on today 's evaluation. No nausea. No vomiting. No diarrhea. No abdominal pain. Adequate urine output. The rest of the electrodes are all within normal limits. His potassium has been replaced. No other significant events overnight. Seems to get stronger and possibly will be able to ambulate today. On 01/31/2017 the patient remains in intensive care unit. He was briefly released out of the ICU however he was brought back as there was concern about his ongoing neurological status. The patient is felt not to be recovering appropriately despite the slow correction of the sodium level. His sodium level has been corrected around 8 mEq over 24 hours. As the correction was being done and the patient continued to be weak and lethargic and furthermore no appropriate neurologic recovery was noted. This morning he remains on and off confused , slow in answering questions, twitching at times, profoundly weak to the point where he was unable to stand up and bear any weight. Headaches. No seizure activity noted. No tonic postures. No loss of consciousness. He is able to speak and his speech is delayed and not appropriate to the clinical setting that he is in. Based on all this, I repeated the CAT scan of the head and it showed no acute intracranial abnormalities. There was some mild changes consistent with chronic small vessel ischemic disease. The patient also had a CAT scan of the neck that showed soft tissue thickening in the region of the right palatine tonsils and this was thought to be positional in nature. No significant lymphadenopathy in the neck or suspicious neck masses. CAT scan of the chest abdomen and pelvis was also done and it showed COPD and few pulmonary nodules are present up to 5 mm in size however these were nonspecific and possibility of neoplasm was felt to be really low in follow-up CAT scans admitted recommended. The patient had an ectatic descending aorta with a mild abdominal aortic aneurysm measuring 3.0 cm in size. The patient was also found to have some proximal sigmoid diverticulosis without evidence of diverticulitis. Neurology was consulted. EEG is to follow. MRI of the brain is to follow. The patient's oral intake is minimal at this point. He is on no IV fluids. On 02/01/2017, patient seems to be doing much better, alert oriented 3, however he had episodes last night were in he was quite confused, and he was unable to move his upper extremities. [place] that the patient may have had a stroke, of course the main concern is whether the patient is having CPM. CT of the brain came back negative again, neurology is still following the patient, his sodium is 130 today. Rest of the labs were noted to be unremarkable. On 02/02/2017, patient is doing well, however last night he had a similar episode of confusion, patient was almost catatonic, and he felt generally weak, and could not move. Patient was noted to have runny nose, extremely red, bloodshot eyes, however patient seems to be doing much better today. According to his family, this is definitely not him, and he never had these episodes before. So far the neurologist cannot explain these mental status changes, his MRI was negative for CPM. Hence the neurologist is recommending possibly transferring him to a tertiary care center and I believe that would not be a better idea. We will let the primary care physician know. Pulmonary-hawkins the patient is stable, hemodynamically stable, the only major abnormality seems to be related to his intermittent neurological changes in mental status change especially at night. Today the patient seems to be very appropriate. And no focal deficit. Labs were reviewed CBC is relatively unremarkable, sodium is 129 today, renal profile is normal. Objective - Vital Signs Vital signs: Vital Signs Temp 98.1 F 02/02/17 12:00 Pulse 73 02/02/17 13:00 Resp 19 02/02/17 13:00 BP 94/56 02/02/17 13:00 Pulse Ox 96 02/02/17 13:00 Intake & Output 02/01/17 02/02/17 02/02/17 18:59 06:59 18:59 Intake Total 442 275 7448 Output Total 747 1520 275 Balance -147 -920 825 Weight 55 kg 55 kg 55 kg Intake: IV 600 100 350 Potassium Chloride 20 meq 100 Lidocaine 2% Inj 20 mg In Sodium Chloride 0.9% 100 ml @ 55.5 mls/hr IVPB Q2H [facility] Rx#:[id number] Sodium Chloride 0.9% 1, 600 100 250 000 ml @ 50 mls/hr IV . Q20H [facility] Rx#:[id number] Intake, IV Titration 500 250 Amount Magnesium Sulfate-D5w Pmx 200 1 gm In Dextrose/Water 1 100ml.bag @ 100 mls/hr IVPB Q1H [facility] Rx#: [id number] Potassium Chloride 20 meq 50 Lidocaine 2% Inj 20 mg In Sodium Chloride 0.9% 100 ml @ 55.5 mls/hr IVPB Q2H [facility] Rx#:[id number] Sodium Chloride 0.9% 1, 500 000 ml @ 50 mls/hr IV . Q20H [facility] Rx#:[id number] Oral 500 Output: Urine 747 1520 275 Other: Voiding Method Indwelling Catheter Indwelling Catheter Indwelling Catheter # Bowel Movements 1 - Exam Physical Exam: Revealed a 71-year-old white male in no form of respiratory distress. HEENT: PERRLA, EOMI, throat is clear. [Neck is supple.] [No neck masses.] [No thyromegaly.] [No JVD.] Chest: [Clear throughout, no crackles, no rhonchi, no wheezes.] Cardiac Exam: [Normal S1 and S2, no S3 gallop, no murmur.] Abdomen: [Soft, nontender, no megaly, no rebound, no guarding, normal bowel sounds.] Extremities: [No clubbing, no edema, no cyanosis.] Neurological Exam: [No focal neurologic deficit.] Skin: No rashes, no ulcerations. Lymphatics: No lymphadenopathy. Psychiatric: Blunted affect, depressed mood, otherwise normal mental status examination. - Labs CBC & Chem 7: 02/02/17 04:02 02/02/17 04:02 Labs: Abnormal Lab Results - Last 24 Hours (Table) 02/01/17 02/02/17 02/02/17 Range/Units 19:21 04:02 04:02 WBC 12.0 H (3.8-10.6) k/uL RBC 4.20 L (4.30-5.90) m/uL Hgb 12.8 L (13.0-17.5) gm/dL Hct 38.8 L (39.0-53.0) % Neutrophils # 10.6 H (1.3-7.7) k/uL Lymphocytes # 0.5 L (1.0-4.8) k/uL Sodium 128 L 129 L (137-145) mmol/L Chloride 92 L 90 L (98-107) mmol/L BUN 29 H 27 H (9-20) mg/dL Glucose 126 H 127 H (74-99) mg/dL TSH (0.465-4.680) mIU/L Free T4 (0.78-2.19) ng/dL 02/02/17 Range/Units 04:02 WBC (3.8-10.6) k/uL RBC (4.30-5.90) m/uL Hgb (13.0-17.5) gm/dL Hct (39.0-53.0) % Neutrophils # (1.3-7.7) k/uL Lymphocytes # (1.0-4.8) k/uL Sodium (137-145) mmol/L Chloride (98-107) mmol/L BUN (9-20) mg/dL Glucose (74-99) mg/dL TSH 0.171 L (0.465-4.680) mIU/L Free T4 2.61 H (0.78-2.19) ng/dL Assessment and Plan Plan: 1 symptomatic hyponatremia, possibly drug induced secondary to intake of hydrochlorothiazide. Considering the patient's intermittent changes in mental status, CPM is being considered, but it's felt to be less likely. Unless the patient had rapid development of hyponatremia before presentation, that could also lead to some mild CPM. Looking at the patient's chart, his sodium was actually corrected slowly, and this should not lead to CPM. MRI of the brain is relatively unremarkable and does not point to any findings to suggest CPM. 2 profound generalized weakness secondary to above, without any focal neurological deficit at this point. Cranial nerves seem to be intact. Mental status is waxing and waning as mentioned. Neurology has been consulted. 3 coronary artery disease with previous coronary intervention and stenting 4 hypertension, patient is off hydrochlorothiazide and the lisinopril was restarted. 5 COPD 6 hyperlipidemia Plan continue to monitor neurological status, consider transferring the patient to a tertiary care center, unless we have a neurological explanation to his neurological condition that seems to be happening almost on a daily basis especially at night. Time with Patient: Less than 30
[2017-02-02] MEDS ORDERED: MIRTAZAPINE 15 MG TAB PO SCH (18:00)
--- NOTE | 2017-02-02 21:03 | P.CN ---
Psychiatric Consult - . Consult date: 02/02/17 Consult:: Patient transferred to [facility] prior to consultation
--- NOTE | 2017-02-05 13:35 | P.DS ---
Providers Date of admission: 01/27/17 22:27 Expected date of discharge: 02/02/17 Attending physician: Marnie López Consults: 01/27/17 22:22 Consult Physician Routine Consulting Provider: Joelle Gusman Consult Reason/Comments: Hyponatremia Do you want consulting provider notified?: Yes, Notify in am 01/27/17 22:36 Consult Physician Routine Consulting Provider: Naresh Xie Consult Reason/Comments: ICU care Do you want consulting provider notified?: Already Contacted 01/30/17 17:13 Consult Physician Urgent Consulting Provider: Alicia Metcalf Consult Reason/Comments: Altered Mental Status Do you want consulting provider notified?: Yes 01/30/17 18:35 Consult Physician Urgent Consulting Provider: Charlene Metcalf Consult Reason/Comments: mental status changes Do you want consulting provider notified?: Already Contacted 02/01/17 17:30 Consult Physician Stat Consulting Provider: Román Berman Consult Reason/Comments: depression, r/o suicidal ideation Do you want consulting provider notified?: Yes Primary care physician: Archana [place] Hospital Course: This is a 71-year-old male patient of Dr. Street with past medical history of coronary artery disease, myocardial infarction status post stent, diabetes mellitus type 2, hypertension, depression, anxiety, patient was brought into the emergency department at [facility] yesterday with his due to generalized weakness and inability to ambulate, patient was having significant mental status changes with significant encephalopathy patient was found to have a sodium 411 he was recently started on lisinopril hydrochlorothiazide for his primary care physician, and the patient was found to have an elevated serum osmolality and urine aspirin D with elevated urine sodium initially he was hypovolemic and now he is euvolemic hyponatremia due to the use of thiazide diuretics, patient also was found to have a significant hypokalemia due to the use of the diuretics as well who was admitted to the intensive care unit he was seen in consultation by nephrology as well as by critical care medicine Dr. Xie my patient also was started on hypertonic 3 % solution and he is currently off all IV fluids and his sodium level is 119, repeat a sodium level if the sodium continues to rise the patient would be started on half normal saline as well as possible DDAVP. 01/29: Patient remains in the intensive care unit. He continues to be weak and confused. Sodium is now I'll 120 and chloride 89. He has followed by nephrology and Dr. Xie from pulmonary medicine. He is on a 1.5 L fluid restriction and is continued on IV fluids of normal saline at 50 mL per hour. 02/01: CT soft tissue of the neck revealed soft tissue thickening in the region the right tubal and palatine tonsils may be secondary to head tilt. No abnormal lymphadenopathy or suspicious neck masses. CT of the chest abdomen and pelvis revealed COPD with moderate emphysema and probable underlying pulmonary arterial hypertension. A few pulmonary nodules at 5 mm and one at 8 mm subpleural nodule in the right lower lobe. Recommend repeat in 6-12 months. Ectatic descending thoracic aorta and mild AAA at 3 cm. Bladder distended with Romero in place. Proximal sigmoid diverticulosis without acute diverticulitis with recommended screening colonoscopy. Over the weekend, patient was transferred out of the intensive care unit but was found to have slow response and some tremors and there was concern for stroke or seizures and he was transferred back to the intensive care unit. Last night patient had an episode where he was staring blankly and he did not answer the nurse. His blood pressure was 190. He underwent a repeat CAT scan of the brain which will be #3 which shows no acute findings. Dr. Metcalf has ordered an MRI for today. EEG was within normal limits for age. Patient continues to be followed by Dr. 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 Prozac will be discontinued and patient started on mirtazapine. Sodium is now at 1:30. He is ordered for 1 dose of Lasix 20 mg and IV fluids at 0.950 mL per hour. Repeat sodium to be checked at noon. Patient is not interested in eating or drinking. He takes a little Ensure with his pills only. Potassium and magnesium were replaced. 02/02: Sodium has been between 128 and 130 in the past 24 hours. This morning sodium is 129. MRI of the brain shows no acute process. Patient had another episode of staring and not answering the nurse last evening. Patient apparently had restlessness and did not sleep. He was given a dose of IV Ativan. He did not receive the Remeron that was ordered. There is concern regarding his swallowing as he verbalizes he doesn't know what to do with the pill. Patient is sleeping at the time of examination but awakens to verbal stimuli. He was complaining of his eyes feeling like they are on fire and red and watery. Patient also apparently said that he was suicidal last night and there is a sitter ordered and psychiatric consult has been requested. Patient states he does not remember saying that but he has had depression. He has no appetite no energy but no recent loss in his life. [place] moved to 6 PM administration. 02/02: Dr. Lange and Dr. Metcalf recommend transfer to [facility]. Dr. Metcalf is concern for CIDP and need for EMG and continuous EEG which we are not able to provide here. Case management contacted and arrangements have been completed. Patient transferred to [facility] once arrangements are completed. Discharge diagnoses: 1. Hyponatremia due to the use of diuretics currently euvolemic with metabolic encephalopathy. 2. Hypokalemia secondary to the use of diuretics. 3. CAD post-PCI in the care of cardiology. 4. Hypertension and hypertensive cardiovascular disease. 5. Hypomagnesemia. 6. Chronic low back pain. Status post spinal fusion. 7. Generalized anxiety disorder and recurrent depression. 8. Hyperlipidemia. 9. PAD. 10. Verbalization of suicidal ideation. Impression and plan of care have been directed as dictated by the signing physician. Amparo Shelton nurse practitioner acting as scribe for signing physician. Patient Condition at Discharge: Stable Plan - Discharge Summary New Discharge Prescriptions: No Action Zolpidem [Ambien] 10 mg PO HS PRN PRN Reason: Insomnia FLUoxetine HCL [PROzac] 20 mg PO BID Cholecalciferol [Vitamin D3] 1,000 unit PO DAILY Atorvastatin [Lipitor] 20 mg PO HS Aspirin EC [Ecotrin Low Dose] 162 mg PO HS ALPRAZolam [Xanax] 0.25 mg PO HS PRN PRN Reason: Anxiety ALPRAZolam [Xanax] 0.25 mg PO DAILY Lisinopril-Hctz 10-12.5 mg [Zestoretic 10-12.5] 1 tab PO DAILY Atenolol [Tenormin] 50 mg PO DAILY Discharge Medication List ALPRAZolam [Xanax] 0.25 mg PO DAILY 01/27/17 [History] ALPRAZolam [Xanax] 0.25 mg PO HS PRN 01/27/17 [History] Aspirin EC [Ecotrin Low Dose] 162 mg PO HS 01/27/17 [History] Atenolol [Tenormin] 50 mg PO DAILY 01/27/17 [History] Atorvastatin [Lipitor] 20 mg PO HS 01/27/17 [History] Cholecalciferol [Vitamin D3] 1,000 unit PO DAILY 01/27/17 [History] FLUoxetine HCL [PROzac] 20 mg PO BID 01/27/17 [History] Lisinopril-Hctz 10-12.5 mg [Zestoretic 10-12.5] 1 tab PO DAILY 01/27/17 [History ] Zolpidem [Ambien] 10 mg PO HS PRN 01/27/17 [History] Follow up Appointment(s)/Referral(s): Archana Street MD [Primary Care Provider] - 1-2 days Discharge Disposition: OTHER INSTITUTION NOT DEFINED
--- NOTE | 2017-02-05 15:57 | CDI ---
In responding to this query, please exercise your independent professional judgment. The [facility] Coding Staff and Clinical Documentation Specialists appreciate your assistance in clarifying documentation, maintaining compliance with coding guidelines, accurately documenting patients condition and capturing severity of illness. The fact that a question is asked does not imply that any particular answer is desired or expected. Communication forms are a method of clarifying documentation and are not made part of the Legal Health Record. Thank you in advance for your clarification. Last Revision, February 2015 Documentation Clarification Form Date: 02/05/2017 3:42:00 PM From: JOSH Bellamy, Case Packer And Sealer Admit Date: 01/27/2017 10:27:00 PM Patient Name: Pantera Rodriguez Visit Number: [id number] Discharge Date: Dr. Marnie López The patient presented with profound weakness and hyponatremia. Sodium on admission was 111, and patient was recently started on lisinopril. Prozac induced SIADH is suggested, but this diagnosis is not confirmed. In your professional opinion, can you please clarify which diagnosis you were treating, Hyponatremia Syndrome of inappropriate secretion of antidiuretic hormone (SIADH) Other, Unable to determine Please document in your progress notes and discharge summary in order to capture severity of illness and risk of mortality. Include clinical findings that support your diagnosis. FYI: Press F11 to launch patient chart. If you have a question about this query, please contact Susanna Walters Case Packer And Sealer at [phone] between 8am and 5pm. RACHELLE
== END 2017-02-02 14:34 | disposition short-term general hospital (02) | DRG 640 ==
LOC: EC 19:20 → 6ICU 22:27 → 5MS5E 01-30 10:15 → 6ICU 01-30 17:46
PROVIDERS: ADMIT Internal Medicine; ATTEND Internal Medicine
DX: E87.1 Hypo-osmolality and hyponatremia (principal); E43 Unspecified severe protein-calorie malnutrition; E86.1 Hypovolemia; G93.40 Encephalopathy, unspecified; G93.41 Metabolic encephalopathy; I11.9 Hypertensive heart disease without heart failure; R45.851 Suicidal ideations; E11.9 Type 2 diabetes mellitus without complications; D64.9 Anemia, unspecified; F33.9 Major depressive disorder, recurrent, unspecified; I27.21 Secondary pulmonary arterial hypertension; J43.9 Emphysema, unspecified; J44.9 Chronic obstructive pulmonary disease, unspecified; F32.9 Major depressive disorder, single episode, unspecified; E78.5 Hyperlipidemia, unspecified; E87.6 Hypokalemia; E87.8 Other disorders of electrolyte and fluid balance, not elsewhere classified; F41.9 Anxiety disorder, unspecified; I25.10 Atherosclerotic heart disease of native coronary artery without angina pectoris; G89.29 Other chronic pain; I25.2 Old myocardial infarction; I71.4 Abdominal aortic aneurysm, without rupture; I73.9 Peripheral vascular disease, unspecified; K57.30 Diverticulosis of large intestine without perforation or abscess without bleeding; R33.9 Retention of urine, unspecified; T50.2X5A Adverse effect of carbonic-anhydrase inhibitors, benzothiadiazides and other diuretics, initial encounter; Z53.20 Procedure and treatment not carried out because of patient's decision for unspecified reasons; Z79.82 Long term (current) use of aspirin; Z79.899 Other long term (current) drug therapy; Z83.3 Family history of diabetes mellitus; Z87.891 Personal history of nicotine dependence; Z95.5 Presence of coronary angioplasty implant and graft; Z98.1 Arthrodesis status; Z88.2 Allergy status to sulfonamides; E83.42 Hypomagnesemia; F41.1 Generalized anxiety disorder; M54.5 Low back pain
CPT/HCPCS: 36415; 51798; 70450; 70490; 70551; 71010; 71250; 74176; 80048; 80053; 80306; 80320; 81001; 82553; 82570; 83520; 83605; 83735; 83930; 83935; 84100; 84132; 84295; 84300; 84439; 84443; 84481; 84484; 84550; 85025; 85027; 85610; 85730; 86038; 87086; 93005; 95816; 96361; 96365; 96366; 99285

== ENCOUNTER → 2017-04-20 | Outpatient (CLI) | payer MEDICARE, BC ==
[2017-04-20 07:57] LABS: Blood Urea Nitrogen 27 mg/dL (9-20)
--- NOTE | 2017-04-20 08:41 | CT ---
EXAMINATION TYPE: CT angio chest DATE OF EXAM: 04/20/2017 COMPARISON: 01/30/2017 HISTORY: BELINDA, PE, lung nodule CT DLP: 158.3 mGycm CONTRAST: CT chest with contrast and 3D reconstruction with MIP imaging is performed with IV Contrast, patient injected with 100 mL of Omnipaque 350. Contrast-enhanced CT of the chest was performed through the course of the pulmonary arteries with marbella g and mediastinal window settings submitted. 3D reconstruction with MIP imaging was also performed. PULMONARY ARTERIES: The pulmonary arteries and their major tributaries are patent. I do not see laurence dence for sizable filling defect to suggest pulmonary embolic process. LUNGS: The lungs are clear and free of infiltrate. Hyperinflation and upper lobe emphysematous change s noted. No evidence for atelectasis. 3 mm pleural-based nodule right upper lobe image 73 is unchange d. Stable 8 mm pleural-based nodule right lower lobe image 125. Stable 5 mm left lower lobe pulmonary nodule image show 106. Stable 5 mm nodule left lower lobe image 90. No pleural effusion. MEDIASTINUM: Thoracic aorta is ectatic without evidence for aneurysm at this time. The heart is mild ly enlarged. No evidence for mediastinal mass. No mediastinal lymph nodes greater than 1cm. HILAR STRUCTURES: No evidence for mass. No hilar lymph nodes greater than 1 cm. UPPER ABDOMEN: No significant abnormality is seen. IMPRESSION: 1. No evidence for Pulmonary embolism at this time. 2. Stable pulmonary nodules. Stability over a two-year timeframe should be documented radiographicall y.
== END | disposition home or self-care (01) ==
LOC: RADCTMAIN 07:24
PROVIDERS: ATTEND Internal Medicine
DX: R91.1 Solitary pulmonary nodule (principal)
CPT/HCPCS: 82565; 84520; 71275; 36415; Q9967

== ENCOUNTER → 2017-06-18 | Outpatient (CLI) | payer MEDICARE, BC ==
--- NOTE | 2017-06-18 14:08 | MR ---
EXAMINATION TYPE: MR thoracic spine wo con DATE OF EXAM: 06/18/2017 COMPARISON: NONE HISTORY: Pain in thoracic spine CONTRAST: Performed utilizing 0 mL intravenous Gadavist gadolinium contrast. TECHNIQUE: Multiplanar, multiecho imaging on a 3.0 Ketty magnet is performed through the thoracic spi ne. Compression deformities of T7-T8 and T9 are evident. This is greatest at T9 with severe loss of the v ertebral body heights. There is approximately 60% loss of the T8 vertebral body height and approximat benji 40% loss of the superior anterior vertebral body height of T7. Remaining vertebral body heights are preserved. Disc heights are preserved. Disc hydration levels mary ear preserved. There is some minimal posterior wall displacement of the mid T9 level with mild anterior thecal sac c ompression. No cord contact is evident. No spinal canal stenosis is present. Spinal cord maintains normal signal through its visualized course. No spinal canal stenosis is evident. IMPRESSIONS: 1. Superior endplate compression deformities T7, T8, T9. 2. Minimal posterior wall displacement of T9 with mild anterior thecal sac compression. No cord conta ct or spinal canal stenosis present. 3. Findings appear stable from the comparison CT chest of 04/20/2017
== END | disposition home or self-care (01) ==
LOC: RADMRIMAIN 11:40
PROVIDERS: ATTEND Psychiatry & Neurology Neurology
DX: M43.8X4 Other specified deforming dorsopathies, thoracic region (principal); M51.24 Other intervertebral disc displacement, thoracic region
CPT/HCPCS: 72146

== ENCOUNTER 2017-10-26 10:52 | Day surgery (SDC) | payer MEDICARE, BC ==
[2017-10-22 16:51] VITALS: BMI 18.7
[~2017-10-26 10:52] MED LIST: LACTATED RINGERS 1,000 ML IV SCH
[2017-10-26 11:11] VITALS: RESP 18; TEMP 98.2
[2017-10-26] MEDS ORDERED: LIDOCAINE 1% 20 ML VIAL (10MG/ML) FOR IV START INTRADERMA ONE (11:25)
[2017-10-26 11:35] LABS: Glucose,Whole Blood 127 mg/dL (75-99)
[2017-10-26] MEDS ORDERED: LIDOCAINE 1% INJ 10MG/ML (20 ML MDV) ONE (12:13)
[2017-10-26] MEDS ORDERED: MIDAZOLAM 2 MG/2 ML VIAL ONE (12:13)
[2017-10-26] MEDS ORDERED: ePHEDrine SULFATE/0.9% NACL/PF 50 MG/5 ML SYRINGE IV ONE (12:13)
[2017-10-26] MEDS ORDERED: PROPOFOL 10 MG/ML 20 ML VIAL IV ONE (12:13)
--- NOTE | 2017-10-26 13:15 | P.PCN ---
Date of Procedure: 10/26/17 Procedure(s) Performed: Procedures: 1. Esophagogastroduodenoscopy and biopsy. 2. Total colonoscopy. Preoperative diagnosis: Early satiety and weight loss and screening for colon cancer. Postoperative diagnosis: 1. Small sliding hiatal hernia with no obvious esophagitis or complicated reflux disease. 2. S/P pyloroplasty with gastritis but no ulcers, tumors or gastric outlet obstruction. 3. Biopsies obtained from the small intestine, antrum and esophagus. 4. Sigmoid diverticulosis with no evidence of acute diverticulitis, strictures, polyps or cancer. Preparation: HalfLytely prep. Sedation: Was provided by anesthesia. Brief clinical history: The patient is a 71-year-old male who is scheduled for this evaluation for screening for colon cancer and for unexplained weight loss and early satiety. The patient had pyloroplasty and vagotomy years back for ulcer disease. Procedure: With the patient on his left lateral decubitus position and after informed consent and adequate sedation, I passed the Olympus-GIF 160 video upper endoscope through the cricopharyngeus down the esophagus. There was a small sliding hiatal hernia but no obvious esophagitis or complicated reflux disease. The endoscope was then passed into the stomach which was insufflated with air and inspected in detail including the retroflex view in the cardia. There was diffuse mottling and erythema but no ulcers or erosions. The pylorus appeared patulous consistent with prior pyloroplasty. The endoscope was then passed into the duodenum. Duodenal bulb, post bulbar area and descending duodenum appeared within normal limits. I obtained biopsies from the duodenum, antrum and esophagus then the endoscope was withdrawn and I proceeded with the colonoscopy. Perianal area did not show any fissures or fistulas. There were no masses felt on digital rectal examination. The Olympus CFQ 160L video colonoscope was then inserted in the rectum in the usual fashion and advanced to the cecum. The preparation was less than ideal and there was some fecal material and fecal debris that I could not totally suction and wash off. Several diverticular orifices were seen scattered in the sigmoid with no evidence of acute diverticulitis or strictures. The mucosa appeared healthy. No polyps or tumors were seen. I retroflexed the endoscope in the rectum before the endoscope was withdrawn. The patient tolerated the procedure well. Plan: The patient was reassured. Will await biopsy results. Discussed dietary measures. Further plans will be made based on his course and biopsy results. He will follow up with you as planned.
[2017-10-26 13:31] VITALS: BP 138/67; PULSE 79
== END 2017-10-26 13:33 | disposition home or self-care (01) ==
LOC: ORWHC2ENDO 10:52
DX: K29.50 Unspecified chronic gastritis without bleeding (principal); R68.81 Early satiety; R63.4 Abnormal weight loss; Z12.11 Encounter for screening for malignant neoplasm of colon; K57.30 Diverticulosis of large intestine without perforation or abscess without bleeding; K44.9 Diaphragmatic hernia without obstruction or gangrene; D64.9 Anemia, unspecified; I11.0 Hypertensive heart disease with heart failure; I50.9 Heart failure, unspecified; I25.10 Atherosclerotic heart disease of native coronary artery without angina pectoris; E11.9 Type 2 diabetes mellitus without complications; J44.9 Chronic obstructive pulmonary disease, unspecified; E78.5 Hyperlipidemia, unspecified; I25.2 Old myocardial infarction; M19.90 Unspecified osteoarthritis, unspecified site; Z95.5 Presence of coronary angioplasty implant and graft; Z88.2 Allergy status to sulfonamides; Z99.81 Dependence on supplemental oxygen; Z87.891 Personal history of nicotine dependence; Z79.899 Other long term (current) drug therapy; Z79.82 Long term (current) use of aspirin
CPT/HCPCS: 88305; 43239; J2250; J2001; J2704; G0121; 45378

== ENCOUNTER → 2018-04-14 | Outpatient (CLI) | payer MEDICARE, BC ==
--- NOTE | 2018-04-15 05:38 | CT ---
EXAMINATION TYPE: CT chest wo con DATE OF EXAM: 04/14/2018 COMPARISON: 04/20/2017 and 01/30/2017 HISTORY: 72-year-old male SOB, hx of COPD TECHNIQUE: Contiguous axial scanning of the chest without IV contrast. Coronal and sagittal reconstru ctions performed. CT DLP: 302 mGycm Automated exposure control for dose reduction was used. FINDINGS: The heart is normal size with trace anterior pericardial fluid. Coronary vessel calcifications are pr esent. Lower descending thoracic aorta borderline ectatic at 2.5 cm. Conventional arch vessel branching jazmin shawanda with mild arch calcifications. No thoracic lymphadenopathy by CT size criteria. There is some new 1.3 cm nodular thickening along the posterior inferior aspect of the proximal right mainstem bronchus causing some contour indentation. Difficult to exclude any mucosal/endobronchial l esion based on this appearance, refer to axial image 25. 8mm subpleural peripheral right basilar pulmonary nodule remains unchanged for one year and 2 months. 5 mm subpleural left basilar pulmonary nodule, axial image 52 not clearly seen previously. Small 3 mm subpleural pulmonary nodule peripheral left base, axial image 48 is unchanged. 6 mm peripheral left basilar pulmonary nodule, axial image 39 is stable for 12 months but appears mor e defined from 01/30/2017. This can be reassessed at follow-up. There is some strandy scarring or atelectasis at the lung bases, new from last year. Moderate to advanced upper lung centrilobular emphysema. Strandy scarring at the inferior lingula. Postsurgical changes at the GE junction, possible Chula fundoplication. The wrap may be somewhat hig h in position, refer to axial image 52. Patient's AAA seen on 01/30/2017 is not included on the prese nt exam. Multiple vertebral compression deformities, T7, T8, T9 are new from 01/30/2017 but were present on 04/20/2017 suggesting now chronic fractures. Accentuated mid thoracic kyphosis here. Slight retropulsion into the ventral canal at the T8 level, unchanged from 04/20/2017. IMPRESSION: 1. NEW 1.3 CM NODULAR THICKENING ALONG THE POSTEROINFERIOR MARGIN OF THE PROXIMAL RIGHT MAINSTEM BRON CHUS. SMALL EARLY ENDOBRONCHIAL LESION DIFFICULT TO EXCLUDE. HOWEVER, SOME ADHERENT MUCUS OR OTHER DE BRIS IS ALSO POSSIBLE. CORRELATE FOR ANY SYMPTOMS OF AN ENDOBRONCHIAL LESION. IF NO SYMPTOMS, CONTINU ED FOLLOW-UP CAN BE PERFORMED. 2. A 5 MM AND 6 MM PULMONARY NODULES AT THE LEFT BASE CAN BE REASSESSED AT FOLLOW-UP. THE 6 MM NODULE IS STABLE FOR 12 MONTHS BUT THE 5 MM NODULE IS NOT CLEARLY SEEN PREVIOUSLY. THE 8 MM RIGHT BASILAR P ULMONARY NODULE REMAINS STABLE FOR JUST OVER A YEAR. 3. NOW CHRONIC T7, T8, T9 VERTEBRAL COMPRESSION DEFORMITIES NEW FROM 01/30/2017 BUT PRESENT ON 04/20/19 18. 4. COPD WITH MODERATE TO ADVANCED EMPHYSEMA.
== END | disposition home or self-care (01) ==
LOC: RADCTMAIN 15:26
PROVIDERS: ATTEND Internal Medicine
DX: J43.9 Emphysema, unspecified (principal); R91.8 Other nonspecific abnormal finding of lung field
CPT/HCPCS: 71250

== ENCOUNTER → 2018-06-28 | Outpatient (CLI) | payer MEDICARE, BC ==
--- NOTE | 2018-06-28 14:18 | CT ---
EXAMINATION TYPE: CT chest w con DATE OF EXAM: 06/28/2018 COMPARISON: 03/25/2018 HISTORY: Multiple lung nodules CT DLP: 269 mGycm Automated exposure control for dose reduction was used. CONTRAST: CT scan of the chest is performed with IV Contrast, patient injected with 80 mL of Isovue 300. FINDINGS: The heart is normal size with trace anterior pericardial fluid. Coronary vessel calcifications are pr esent. Lower descending thoracic aorta borderline ectatic at 2.5 cm. Conventional arch vessel branchi ng anatomy with mild arch calcifications. No thoracic lymphadenopathy by CT size criteria. There is stable new 1.3 cm nodular thickening along the posterior inferior aspect of the proximal right mainstem bronchus causing some contour indentatio n. Difficult to exclude any mucosal/endobronchial lesion based on this appearance. 8mm subpleural per ipheral right basilar pulmonary nodule remains unchanged from prior exam. 5 mm subpleural left basila r pulmonary nodule is stable. Small 3 mm subpleural pulmonary nodule peripheral left base is unchange d. 6 mm peripheral left basilar pulmonary nodule stable. There is some strandy scarring or atelectasis at the lung bases, new from last year. Moderate to adva nced upper lung centrilobular emphysema. Strandy scarring at the inferior lingula. Postsurgical cordon es at the GE junction, possible Chula fundoplication. The wrap may be somewhat high in position, ref er to axial image 52. Patient's AAA seen on 01/30/2017 is not included on the present exam. Multiple vertebral compression deformities, T7, T8, T9 are new from 01/30/2017 but were present on 04/20/2017 suggesting now chronic fractures. Accentuated mid thoracic kyphosis here. Slight retropulsion into the ventral canal at the T8 level, unchanged from 04/20/2017. There is atherosclerotic change of the distal abdominal aorta with approximate 40% stenosis. There ap pears to be right lobe thyroid nodule measuring 1 cm. Extends substernally. Coronary artery calcifica tion noted. IMPRESSION: 1. Stable multiple pulmonary nodules. 2. Area of concern along the posterior right mainstem bronchus measuring 1.3 cm is less apparent on t mariusz's exam and likely benign. 3. Stable multiple compression deformities. 4. Severe COPD. 5. Thyroid extends substernally with a suspected 1 cm right lobe nodule.
== END | disposition home or self-care (01) ==
LOC: RADCTMAIN 13:15
PROVIDERS: ATTEND Internal Medicine
DX: J44.9 Chronic obstructive pulmonary disease, unspecified (principal); R91.8 Other nonspecific abnormal finding of lung field; E88.01 Alpha-1-antitrypsin deficiency; I27.20 Pulmonary hypertension, unspecified; J96.91 Respiratory failure, unspecified with hypoxia; Z01.812 Encounter for preprocedural laboratory examination; Z88.2 Allergy status to sulfonamides; Z87.891 Personal history of nicotine dependence
CPT/HCPCS: 71260; Q9967

== ENCOUNTER → 2019-12-07 | Outpatient (CLI) | payer MEDICARE, BC ==
--- NOTE | 2019-12-07 11:40 | CT ---
EXAMINATION TYPE: CT chest wo con DATE OF EXAM: 12/07/2019 COMPARISON: 06/28/2018 and 04/20/2017 HISTORY: 74-year-old male Follow up known pulmonary nodules TECHNIQUE: Contiguous axial scanning of the chest without IV contrast. Coronal and sagittal reconstru ctions performed. CT DLP: 153.7 mGycm Automated exposure control for dose reduction was used. FINDINGS: Heart normal size without pericardial effusion. Focal dense proximal LAD and mid RCA coronary artery calcifications are noted. Mild atherosclerotic arch calcifications within the proximal vessel branching anatomy. Mildly enlarged caliber to the main right pulmonary artery at 2.6 cm may reflect underlying pulmonary hypertension. No thoracic lymphadenopathy by CT size criteria. There is bulky appearance to the thyroid gland especially the right extends to just below the thoraci c inlet posteriorly. Appearance is unchanged from 06/28/2018 and 04/20/2017. Advanced emphysematous change. Strandy scarring or atelectasis of the right base. The number of bilat eral pulmonary nodules measuring up to 6 mm remain unchanged back to 04/20/2017. 1 subpleural nodule at the peripheral right base is slightly larger 1.1 cm versus 9 mm, previously. T his shows relatively indolent behavior. Post surgical changes of Chula fundoplication Focal ectasia of the infrarenal abdominal aorta with tortuous course. Ectasia of the 2.5 cm. Moderate stool in the visualized colon. Bones: Anterior compression deformities of T8 and T9 were present back on 04/20/2017. Slight progressi on in the superior endplate height loss of T7 as compared to 04/20/2017 with stable appearance as berry red to 06/28/2018. Inferior endplate deformity of T5 is new from 06/28/2018. Similar focal kyphosis at the mid thoracic s pine. IMPRESSION: 1. COPD WITH ADVANCED EMPHYSEMA. 2. A 1.1 CM RIGHT BASILAR SUBPLEURAL PULMONARY NODULE IS SLIGHTLY LARGER (VERSUS 9 MM, PREVIOUSLY). T HIS SHOWS RELATIVELY INDOLENT BEHAVIOR. CONTINUED FOLLOW-UP IS RECOMMENDED IN 6-12 MONTHS. 3. THE REMAINING BILATERAL PULMONARY NODULES MEASURING UP TO 6 MM ARE UNCHANGED BACK TO 04/20/2017 AND BENIGN. 4. COMPRESSION DEFORMITIES IN THE MID TO LOWER THORACIC SPINE. INFERIOR END PLATE DEFORMITY OF T5 IS NEW FROM 06/28/2018. CORRELATE FOR ANY FOCAL PAIN AT THIS LEVEL.
== END | disposition home or self-care (01) ==
LOC: RADCTMAIN 09:54
PROVIDERS: ATTEND Internal Medicine Pulmonary Disease
DX: J43.8 Other emphysema (principal); E88.01 Alpha-1-antitrypsin deficiency; I10 Essential (primary) hypertension; I27.20 Pulmonary hypertension, unspecified; J96.91 Respiratory failure, unspecified with hypoxia
CPT/HCPCS: 71250

== ENCOUNTER → 2019-12-16 | Outpatient (CLI) | payer MEDICARE, BC ==
--- NOTE | 2019-12-19 06:24 | PE ---
EXAMINATION TYPE: PET CT fusion skull to thigh DATE OF EXAM: 12/16/2019 COMPARISON: Chest CT December 07, 2019 and older CTs HISTORY: Solitary pulmonary nodule, abnormal CT. TECHNIQUE: Following the intravenous administration of 11.772 mCi of F-18 FDG, whole body images are performed from the skull base to the midthigh. Images are reviewed on the computer in the coronal, axial, and sagittal planes. Reconstructed rotating images are created on independent workstation and reviewed on the computer. A noncontrast CT is performed in conjunction with the PET scan. SCAN: Initial Scan FINDINGS: SKULL BASE AND NECK: Symmetric uptake at level of vocal cords presumed product of phonation. No akila picious hypermetabolic uptake. CHEST, MEDIASTINUM, AND HILAR REGION: Background underlying advanced emphysematous change redemonstra hira. No suspicious hypermetabolic uptake including subpleural nodule of concern right lower lobe sobia phery axial image 119. ABDOMEN AND PELVIS: Normal excretion is seen. No adrenal masses are evident. Mild hypermetabolic upta ke sigmoid colon at site of mild wall thickening should be correlated with direct visualization has n ot been performed in last 3 years. No suspicious hypermetabolic uptake otherwise. OSSEOUS STRUCTURES: No suspicious hypermetabolic uptake. OTHER CT: [id number] calcified plaque bilateral carotid bulb level. Heterogeneous somewhat prominent thyroid. Prominent bilateral pulmonary arteries. Coronary artery katerin culi and/or stents. Surgical changes near diaphragmatic hiatus. Mild generalized fat replaced atrophy of pancreas. Border line 3.0 cm abdominal aortic aneurysm maximum at 169. Sigmoid colonic diverticulosis. Mildly enlarged prostate bulging on bladder base. Moderate concentric wall thickening presumed product of outlet obs truction. Moderate compression type fracture T9 level mild to moderate compression type fracture T7 level mild height loss superior L5 endplate. Facet arthropathy lower lumbar levels. IMPRESSION: No suspicious hypermetabolic uptake in pulmonary nodules. Advise continued CT monitoring. Mild focal uptake at level of sigmoid colon should be correlated with direct visualization if has no t been performed in last 3 years.
== END | disposition home or self-care (01) ==
LOC: RADPETMAIN 10:10
PROVIDERS: ATTEND Internal Medicine Pulmonary Disease
DX: R91.1 Solitary pulmonary nodule (principal); R93.5 Abnormal findings on diagnostic imaging of other abdominal regions, including retroperitoneum
CPT/HCPCS: 78815; A9552

== ENCOUNTER → 2020-10-28 | Outpatient (CLI) | payer MEDICARE, BC ==
--- NOTE | 2020-10-29 03:45 | MR ---
EXAMINATION TYPE: MR pituitary wo/w con DATE OF EXAM: 10/28/2020 COMPARISON: None HISTORY: Abnormal labs per , pituitary adenoma CONTRAST: Standard multiplanar, multisequence MRI departmental protocol utilizing 5.5 mL intravenous Gadavist g adolinium contrast. The pituitary stalk is in the midline. Optic chiasm appears normal. There is a 6.5 x 4.5 mm rounded a cely of mild enhancement in the posterior right side of the pituitary fossa. Enhancement is slightly l ess than the remainder of the gland. There is no enlargement of the sella. Corpus callosum appears in tact. Visualized brainstem is intact. There is normal flow-void in both internal carotid arteries. IMPRESSION: Right side area of altered enhancement in the posterior pituitary gland could be a macroadenoma.
== END | disposition home or self-care (01) ==
LOC: RADMRIMAIN 08:44
PROVIDERS: ATTEND Internal Medicine Endocrinology, Diabetes & Metabolism
DX: D35.2 Benign neoplasm of pituitary gland (principal)
CPT/HCPCS: 70553; A9585

== ENCOUNTER → 2022-10-09 | Outpatient (CLI) | payer MEDICARE, BC ==
--- NOTE | 2022-10-10 09:09 | US ---
EXAMINATION TYPE: US scrotum with doppler. Grayscale and color Doppler Duplex imaging performed of lauryn smith scrotum. DATE OF EXAM: 10/09/2022 COMPARISON: NONE CLINICAL INDICATION: Male, 76 years old with history of N50.89 Scrotal swelling or pain; Left testicu lar pain and swelling EXAM MEASUREMENTS: TESTICLES: Right Testicle: 3.0 x 1.5 x 2.3 cm Left Testicle: 3.4 x 1.7 x 1.5 cm EPIDIDYMIS HEAD: Right Epididymis: 1.1 cm Left Epididymis: Doppler performed to assess for testicular vascularity; good bilateral arterial color flow and wavefo silvia are seen and good venous flow within left testicle. Unable to obtain venous flow below. within right testicle. Presence of hydroceles: no Presence of varicoceles: no Left: 5.0 x 3.4 x 4.1cm complex area with septations and debris seen medial and superior to left test icle, ? epididymal cyst vs. separate from epididymis. IMPRESSION: 1. Complex collection superior to the left testicle as noted above could reflect complex epididymal c yst. Mass of other etiology not excluded. 2. Unable to obtain venous flow from the right testicle.
== END | disposition home or self-care (01) ==
LOC: RADUSWWP 15:26
PROVIDERS: ATTEND Urology
DX: N50.89 Other specified disorders of the male genital organs (principal)
CPT/HCPCS: 76870; 93975